=== PATIENT | female | born 1990 | race Caucasian/White ===

== ENCOUNTER 2017-02-09 18:24 | Emergency (ER) | payer SELFPAY ==
[~2017-02-09] VITALS: Ht 167.6 cm; Wt 56.7 kg
[~2017-02-09 18:24] MED LIST: AGM875T PO; CEPH500C PO; CODE-54 PO; FAMO-119 PO; IBP600T1 PO; NAPR500T PO; PHEN-639 PO; PRD20T PO; PREN1TAB25 PO
--- NOTE | 2017-02-09 18:39 | ED GU-Female ---
General Stated Complaint: PELVIC AREA ISSUES Source: patient Exam Limitations: no limitations History of Present Illness Time seen by provider: 18:37 Initial Comments To ER with reports of a three-day history of yellowish vaginal discharge, vaginal itching and burning as well as burning with urination. She has not been sexually active for 4 months Timing/Duration: other Severity/Quality: moderate Activities at Onset: none Associated Symptoms: denies symptoms Allergies and Home Medications Allergies Coded Allergies: No Known Drug Allergies (Unverified , 04/04/11) Constitutional: see HPI EENTM: see HPI Respiratory: no symptoms reported Cardiovascular: no symptoms reported Genitourinary: no symptoms reported Musculoskeletal: no symptoms reported Skin: no symptoms reported Psychiatric/Neurological: No Symptoms Reported Endocrine: No Symptoms Reported Past Dhhfdzj-Dkkwoh-Ouoogg Hx Patient Social History Alcohol Beverage of Choice: Beer Type Used: Cigarettes Recent Foreign Travel: No Contact w/Someone Who Travel: No Recent Hopitalizations: No Immunizations Up To Date Tetanus Booster (TDap): Unknown PED Vaccines UTD: No Seasonal Allergies Seasonal Allergies: No Reproductive System Hx Reproductive Disorders: No Blood Transfusions Adverse Reaction to a Blood Tr: No Family Medical History Significant Family History: No Pertinent Family Hx Family Medial History: Cardiovascular disease 19 MOTHER, Onset:39 (HEART ATTACK ) MAT GRANDPA, Onset:50's - 60 (HEART ATTACK) Dementia MAT GRANDMA, Onset:50's - 60 Diabetes mellitus MAT GRANDPA MAT GRANDMA Hypertension 19 FATHER, Onset:Unknown 19 MOTHER, Onset:Unknown Thyroid disease MAT GRANDMA, Onset:Unknown No Family History of: AIDS Abdominal aortic aneurysm Real's disease Alcoholism Alzheimer's disease Aphasia Arthritis Asthma Cancer of mouth Cataracts Colon cancer Completed stroke Congenital disease Congenital heart disease Coronary thrombosis Cystic fibrosis Deafness or hearing loss Drug abuse Dysphasia Fibrocystic disease of breast Gastroenteritis Glaucoma Headache disorder Hypercholesterolemia Kidney disease Myocardial infarction Neoplasm Osteoporosis Parkinson's disease Prostate cancer Psychosocial problem Respiratory disorder Seizure disorder Severe allergy Tuberculosis Visual disorder Physical Exam Vital Signs Vital Sign - Last 12Hours 02/09/17 18:30 Temp 97.7 Pulse 105 Resp 18 B/P (MAP) 126/78 Pulse Ox 98 Capillary Refill : General Appearance: WD/WN, no apparent distress HEENT: PERRL/EOMI, normal ENT inspection Neck: non-tender, full range of motion Cardiovascular: regular rate, rhythm, no murmur Respiratory: no respiratory distress, no accessory muscle use Gastrointestinal: normal bowel sounds, non tender, soft Pelvic: other (there is some cervical friability with cervical discharge of whitish yellow material. Nontender to cervical motion.) Extremities: normal range of motion, non-tender Neurologic/Psychiatric: alert, normal mood/affect, oriented x 3 Skin: normal color, warm/dry Progress/Results/Core Measures Results/Orders Lab Results Laboratory Tests Test 02/09/17 18:35 02/09/17 18:50 Range/Units Urine Color YELLOW Urine Clarity SLIGHTLY CLOUDY Urine pH 5 5-9 Urine Specific [place] 1.025 H 1.016-1.022 Urine Protein NEGATIVE NEGATIVE Urine Glucose (UA) NEGATIVE NEGATIVE Urine Ketones 1+ H NEGATIVE Urine Nitrite NEGATIVE NEGATIVE Urine Bilirubin NEGATIVE NEGATIVE Urine Urobilinogen 1 NORMAL MG/DL Urine Leukocyte Esterase 3+ H NEGATIVE Urine RBC (Auto) NEGATIVE NEGATIVE Urine RBC NONE /HPF Urine WBC 5-10 H /HPF Urine Squamous Epithelial Cells 10-25 H /HPF Urine Crystals NONE /LPF Urine Bacteria NEGATIVE /HPF Urine Casts NONE /LPF Urine Mucus NEGATIVE /LPF Urine Culture Indicated YES Urine Test NEGATIVE NEGATIVE My Orders Orders - VICENTE COREA NURSING ATTENDANT Wet Prep (02/09/17 18:35) Ua Culture If Indicated (02/09/17 18:35) Neisseria Gonorrhea Dna (02/09/17 18:35) Chlam Dna Probe (02/09/17 18:35) Urine Bedside (02/09/17 18:35) Urine Culture (02/09/17 18:35) Hcg,Qualitative Urine (02/09/17 18:59) Vital Signs/I&O Vital Sign - Last 12Hours 02/09/17 18:30 Temp 97.7 Pulse 105 Resp 18 B/P (MAP) 126/78 Pulse Ox 98 Departure Impression Impression: Primary Impression: Vaginal discharge Additional Impression: Urinary tract infection Disposition: 01 HOME, SELF-CARE Condition: Stable Departure-Patient Inst. Decision time for Depature: 19:16 Referrals: NO,LOCAL PHYSICIAN (PCP/Family) Primary Care Physician Patient Instructions: Urinary Tract Infection, Adult (DC) Add. Discharge Instructions: 1. Follow-up with your doctor next week 2. Return to ER for any concerns 3. We will call you if your culture results indicate need for additional antibiotic. The STD testing will return at the end of next week Scripts Cephalexin (Keflex) 500 Mg Capsule 500 MG PO TID, #15 CAP Prov: VICENTE COREA APRN 02/09/17 VICENTE COREA APRN Feb 09, 2017 18:38
[2017-02-09 18:45] LABS: BILIRUBIN,URINE NEGATIVE (NEGATIVE); KETONES,URINE 1+ (NEGATIVE); LEUKOCYTE ESTERASE ,URINE 3+ (NEGATIVE); NITRITE,URINE NEGATIVE (NEGATIVE); PH,URINE 5 (5-9); PROTEIN,URINE NEGATIVE (NEGATIVE); UROBILINOGEN,URINE 1 MG/DL (NORMAL)
[2017-02-09] MEDS ORDERED: CEPH-507 PO (19:17)
[2017-02-09] MEDS: AZITHROMYCIN 250 MG TAB (ZITHROMAX) PO SCH (19:29)
[2017-02-09] MEDS: LIDOCAINE 1% INJ 20 ML (XYLOCAINE) VIAL INJ ONE (19:30)
[2017-02-09] MEDS: cefTRIAXone 1 GM (ROCEPHIN) VIAL IM ONE (19:30)
[2017-02-09 19:43] VITALS: BP 126/78
[2017-02-11 15:35] LABS: CHLAMYDIA DNA PROBE PT Not Detected (Not Detected); NEISSERIA GONORRHEA DNA Not Detected (Not Detected)
== END 2017-02-09 19:43 | disposition home or self-care (01) ==
LOC: EDUNIT# 18:24 → ER 18:26
DX: N89.8 Other specified noninflammatory disorders of vagina (principal); N39.0 Urinary tract infection, site not specified; Z82.49 Family history of ischemic heart disease and other diseases of the circulatory system
CPT/HCPCS: 36415; 81000; 84703; 87088; 87210; 87491; 87591; 99284

== ENCOUNTER 2017-02-18 09:04 | Emergency (ER) | payer SELFPAY ==
[~2017-02-18] VITALS: Ht 167.6 cm; Wt 56.7 kg
[~2017-02-18 09:04] MED LIST changes: +CEPH-507 PO
[2017-02-18] MEDS ORDERED: SERT100T PO (09:53)
[2017-02-18 09:54] LABS: BASOPHILS % (AUTO) 1 % (0-10); EOSINOPHILS # (AUTO) 0.1 10^3/uL (0.0-0.3); EOSINOPHILS % (AUTO) 1 % (0-10); LYMPHOCYTES # (AUTO) 1.6 X 10^3 (1.0-4.0); LYMPHOCYTES % (AUTO) 24 % (12-44); MEAN CORPUSCULAR HEMOGLOBIN 32 PG (25-34); MEAN CORPUSCULAR HGB CONC 34 G/DL (32-36); MEAN CORPUSCULAR VOLUME 94 FL (80-99); MEAN PLATELET VOLUME 10.9 FL (7.4-10.4); MONOCYTES # (AUTO) 0.4 X 10^3 (0.0-1.0); MONOCYTES % (AUTO) 6 % (0-12); NEUTROPHILS # (AUTO) 4.6 X 10^3 (1.8-7.8); NEUTROPHILS % (AUTO) 68 % (42-75); PLATELET COUNT 168 10^3/uL (130-400); WHITE BLOOD COUNT 6.8 10^3/uL (4.3-11.0)
[2017-02-18 09:55] LABS: BILIRUBIN,URINE NEGATIVE (NEGATIVE); KETONES,URINE NEGATIVE (NEGATIVE); LEUKOCYTE ESTERASE ,URINE NEGATIVE (NEGATIVE); NITRITE,URINE NEGATIVE (NEGATIVE); PH,URINE 5 (5-9); PROTEIN,URINE NEGATIVE (NEGATIVE); UROBILINOGEN,URINE NORMAL (NORMAL)
[2017-02-18 10:09] LABS: ALANINE AMINOTRANSFERASE 11 U/L (0-55); ANION GAP 13 MMOL/L (5-14); ASPARTATE AMINO TRANSFERASE 16 U/L (5-34); BILIRUBIN,TOTAL 0.4 MG/DL (0.1-1.0); BLOOD UREA NITROGEN 10 MG/DL (7-18); BUN/CREATININE RATIO 15; CALCIUM 9.1 MG/DL (8.5-10.1); CARBON DIOXIDE 22 MMOL/L (21-32); CHLORIDE 107 MMOL/L (98-107); CREATININE SERUM 0.65 MG/DL (0.60-1.30); GFR ESTIMATED > 60; LIPASE 19 U/L (8-78); POTASSIUM 3.7 MMOL/L (3.6-5.0); SODIUM 142 MMOL/L (135-145); TOTAL PROTEIN 6.5 GM/DL (6.4-8.2)
[2017-02-18 10:11] LABS: GLUCOSE 58 MG/DL (70-105)
--- NOTE | 2017-02-18 10:34 | Diagnostic Imaging Report ---
INDICATION: Pain. FINDINGS: Lungs are clear. The heart and vessels normal. There is no effusion or pneumothorax. IMPRESSION: Negative. Dictated by: Dictated on workstation # [id number]
[2017-02-18] MEDS ORDERED: RX-ALBUTEROL NEB 2.5 MG/3 ML PACK #5 IH STA (10:43)
[2017-02-18] MEDS ORDERED: DEXAMETHASONE PF 10 MG/ML (DECADRON) VIAL IV STA (10:43)
[2017-02-18] MEDS ORDERED: DEXAMETHASONE 10 MG/ML (DECADRON) 1 ML VIAL ONE (10:44)
[2017-02-18] MEDS ORDERED: RX-ALBUTEROL INHALER (PROAIR) 8 GM IH STA (10:50)
--- NOTE | 2017-02-18 10:50 | ED General ---
General Chief Complaint: Abdominal/GI Problems Stated Complaint: ABD PAIN,BACK PAIN Nursing Triage Note: pt reports cough cold recently that she has been taking muccinex for. pt states that she has upper abdominal pain that radiates to her back and bilateral upper sides. Nursing Sepsis Screen: No Definite Risk Source of Information: Patient Exam Limitations: No Limitations History of Present Illness Time Seen by Provider: 10:35 Initial Comments Here with report of mid back pain as well as some upper abdominal pain and upper respiratory congestion with mild cough that has been going on over the last 4-5 days but worse this morning. Noted that overnight she was having the discomfort in her back and abdomen. That has subsequently resolved. She went to work today and ultimately left due to not feeling well. Presents here for further evaluation. Denies fever or chills. Denies nausea, vomiting or diarrhea. Denies dysuria. Timing/Duration: 4-5 Days Severity: Moderate Associated Systoms: Cough, No Fever/Chills, No Nausea/Vomiting, Shortness of Air, No Weakness Allergies and Home Medications Allergies Coded Allergies: No Known Drug Allergies (Unverified , 04/04/11) Home Medications Sertraline HCl 100 Mg Tablet, 100 MG PO DAILY, (Reported) Constitutional: see HPI Respiratory: see HPI, cough, short of breath Cardiovascular: no symptoms reported Gastrointestinal: see HPI, abdominal pain, No diarrhea, No nausea, No vomiting Genitourinary: no symptoms reported Musculoskeletal: see HPI, back pain, No joint pain, muscle pain Skin: no symptoms reported All Other Systems Reviewed Negative Unless Noted: Yes Past Tkmapnp-Riugbd-Eukyfc Hx Patient Social History Alcohol Use: Denies Use Number of Drinks Today: AA Alcohol Beverage of Choice: Beer Recreational Drug Use: No Smoking Status: Current Everyday Smoker Type Used: Cigarettes Recent Foreign Travel: No Contact w/Someone Who Travel: No Recent Infectious Disease Expo: No Recent Hopitalizations: No Physical Abuse: No Sexual Abuse: No Mistreated: No Fear: No Immunizations Up To Date Tetanus Booster (TDap): Unknown PED Vaccines UTD: No Seasonal Allergies Seasonal Allergies: No Surgeries History of Surgeries: No Respiratory History of Respiratory Disorde: No Cardiovascular History of Cardiac Disorders: No Neurological History of Neurological Disord: No Reproductive System Hx Reproductive Disorders: No Genitourinary History of Genitourinary Disor: No Gastrointestinal History of Gastrointestinal Di: No Musculoskeletal History of Musculoskeletal Dis: No Endocrine History of Endocrine Disorders: No HEENT History of HEENT Disorders: No Cancer History of Cancer: No Psychosocial History of Psychiatric Problem: Yes Behavioral Health Disorders: Depression Suicide Risk Score: 0 Integumentary History of Skin or Integumenta: No Blood Transfusions History of Blood Disorders: No Adverse Reaction to a Blood Tr: No Reviewed Nursing Assessment Reviewed/Agree w Nursing PMH: Yes Family Medical History Significant Family History: No Pertinent Family Hx Family Medial History: Cardiovascular disease 19 MOTHER, Onset:39 (HEART ATTACK ) MAT GRANDPA, Onset:50's - 60 (HEART ATTACK) Dementia MAT GRANDMA, Onset:50's - 60 Diabetes mellitus MAT GRANDPA MAT GRANDMA Hypertension 19 FATHER, Onset:Unknown 19 MOTHER, Onset:Unknown Thyroid disease MAT GRANDMA, Onset:Unknown Physical Exam Vital Signs Vital Sign - Last 12Hours 02/18/17 09:42 Temp 97.7 Pulse 94 Resp 18 B/P (MAP) 118/80 Pulse Ox 94 Capillary Refill : Less Than 3 Seconds General Appearance: No Apparent Distress, WD/WN HEENT: PERRL/EOMI, Pharynx Normal Neck: Non Tender, Supple Respiratory: Lungs Clear, Normal Breath Sounds Cardiovascular: Regular Rate, Rhythm, No Murmur Gastrointestinal: Normal Bowel Sounds, No Organomegaly, No Pulsatile Mass, Non Tender, Soft Extremity: Non Tender, No Calf Tenderness Neurologic/Psychiatric: Alert, Oriented x3 Skin: Normal Color, Warm/Dry Progress/Results/Core Measures Results/Orders Lab Results Laboratory Tests Test 02/18/17 08:27 02/18/17 09:38 02/18/17 10:16 Range/Units Urine Color YELLOW Urine Clarity CLEAR Urine pH 5 5-9 Urine Specific [place] 1.005 L 1.016-1.022 Urine Protein NEGATIVE NEGATIVE Urine Glucose (UA) NEGATIVE NEGATIVE Urine Ketones NEGATIVE NEGATIVE Urine Nitrite NEGATIVE NEGATIVE Urine Bilirubin NEGATIVE NEGATIVE Urine Urobilinogen NORMAL NORMAL MG/DL Urine Leukocyte Esterase NEGATIVE NEGATIVE Urine RBC (Auto) NEGATIVE NEGATIVE Urine RBC NONE /HPF Urine WBC NONE /HPF Urine Squamous Epithelial Cells 2-5 /HPF Urine Crystals NONE /LPF Urine Bacteria NEGATIVE /HPF Urine Casts NONE /LPF Urine Mucus NEGATIVE /LPF Urine Culture Indicated NO White Blood Count 6.8 4.3-11.0 10^3/uL Red Blood Count 4.20 L 4.35-5.85 10^6/uL Hemoglobin 13.5 11.5-16.0 G/DL Hematocrit 39 35-52 % Mean Corpuscular Volume 94 80-99 FL Mean Corpuscular Hemoglobin 32 25-34 PG Mean Corpuscular Hemoglobin Concent 34 32-36 G/DL Red Cell Distribution Width 13.0 10.0-14.5 % Platelet Count 168 130-400 10^3/uL Mean Platelet Volume 10.9 H 7.4-10.4 FL Neutrophils (%) (Auto) 68 42-75 % Lymphocytes (%) (Auto) 24 12-44 % Monocytes (%) (Auto) 6 0-12 % Eosinophils (%) (Auto) 1 0-10 % Basophils (%) (Auto) 1 0-10 % Neutrophils # (Auto) 4.6 1.8-7.8 X 10^3 Lymphocytes # (Auto) 1.6 1.0-4.0 X 10^3 Monocytes # (Auto) 0.4 0.0-1.0 X 10^3 Eosinophils # (Auto) 0.1 0.0-0.3 10^3/uL Basophils # (Auto) 0.0 0.0-0.1 10^3/uL Sodium Level 142 135-145 MMOL/L Potassium Level 3.7 3.6-5.0 MMOL/L Chloride Level 107 98-107 MMOL/L Carbon Dioxide Level 22 21-32 MMOL/L Anion Gap 13 5-14 MMOL/L Blood Urea Nitrogen 10 7-18 MG/DL Creatinine 0.65 0.60-1.30 MG/DL Estimat Glomerular Filtration Rate > 60 BUN/Creatinine Ratio 15 Glucose Level 58 *L 70-105 MG/DL Calcium Level 9.1 8.5-10.1 MG/DL Total Bilirubin 0.4 0.1-1.0 MG/DL Aspartate Amino Transf (AST/SGOT) 16 5-34 U/L Alanine Aminotransferase (ALT/SGPT) 11 0-55 U/L Alkaline Phosphatase 85 40-136 U/L Total Protein 6.5 6.4-8.2 GM/DL Albumin 4.0 3.2-4.5 GM/DL Lipase 19 8-78 U/L Glucometer 88 70-110 MG/DL My Orders Orders - ALBERT GONZALEZ MD Ua Culture If Indicated (02/18/17 09:46) Urine Bedside (02/18/17 09:46) Chest Pa/Lat (2 View) (02/18/17 09:46) Cbc With Automated Diff (02/18/17 09:46) Comprehensive Metabolic Panel (02/18/17 09:46) Lipase (02/18/17 09:46) Dexamethasone Pf Injection (Decadron Pf (02/18/17 10:43) Rx-Albuterol Nebs (Rx-Proventil Nebs) (02/18/17 10:43) Rx-Albuterol Inhaler (Rx-Proair) (02/18/17 10:50) Vital Signs/I&O Vital Sign - Last 12Hours 02/18/17 09:42 Temp 97.7 Pulse 94 Resp 18 B/P (MAP) 118/80 Pulse Ox 94 Blood Pressure Mean: 93 Point of Care Testing Finger Stick Blood Glucose: 88 Urine -Bedside: Negative Progress Note : Progress Note Seen and evaluated. IV, labs, UA, UCG and chest x-ray ordered. No acute findings. Symptoms consistent with bronchitis. Decadron 10 mg IV and albuterol MDI given. Discharged home with return precautions. Patient verbalize understanding of instructions and agreement with plan. Diagnostic Imaging Diagonstic Imaging: Xray Plain Films/CT/US/NM/MRI: chest Comments NAME: KRISTAN RASHEED [facility] REC#: [id number] PT STATUS: REG ER : 1990 PHYSICIAN: ALBERT GONZALEZ MD ADMIT DATE: 02/18/17/ER Signed Date of Exam: 02/18/17 CHEST PA/LAT (2 VIEW) INDICATION: Pain. FINDINGS: Lungs are clear. The heart and vessels normal. There is no effusion or pneumothorax. IMPRESSION: Negative. Dictated by: Dictated on workstation # [id number] Dict: 02/18/17 1028 Trans: 02/18/17 1043 Interpreted by: DENG HANNAH Electronically signed by: DENG HANNAH 02/18/17 1043 Departure Impression Impression: Primary Impression: Bronchitis Disposition: 01 HOME, SELF-CARE Condition: Improved Departure-Patient Inst. Decision time for Depature: 10:55 Referrals: NO,LOCAL PHYSICIAN (PCP/Family) Primary Care Physician Patient Instructions: Acute Bronchitis, Adult (DC) Add. Discharge Instructions: All discharge instructions reviewed with patient and/or family. Voiced understanding. Use albuterol inhaler 2 puffs every 4 hours as needed for difficulty breathing. You may take ibuprofen 600 mg every 8 hours as needed for pain. You may take Tylenol 1000 mg every 8 hours as needed for pain. Follow-up with your Dr. in a few days for recheck. Return for worse pain, fever, vomiting, weakness, breathing problems or other concerns as needed. ALBERT GONZALEZ MD Feb 18, 2017 10:50
[2017-02-18 11:04] VITALS: BP 112/78
== END 2017-02-18 11:04 | disposition home or self-care (01) ==
LOC: EDUNIT# 09:04 → ER 09:06
DX: J40 Bronchitis, not specified as acute or chronic (principal); F32.9 Major depressive disorder, single episode, unspecified; F17.210 Nicotine dependence, cigarettes, uncomplicated; Z82.49 Family history of ischemic heart disease and other diseases of the circulatory system
CPT/HCPCS: 36415; 71020; 80053; 81000; 82962; 83690; 84703; 85025; 96374

== ENCOUNTER 2017-08-22 09:30 | Emergency (ER) | payer MEDICAID, OTHER ==
[~2017-08-22] VITALS: Ht 165.1 cm; Wt 49.9 kg
[~2017-08-22 09:30] MED LIST changes: +NAPR-1071 PO; -NAPR500T PO; +SERT100T PO
--- OUTSIDE RECORDS SUMMARY | 2017-08-22 09:37 | XMS REPORT ---
Author Author JOANA GIPSON [facility] Address [address] [place] [address] Care Team Providers Care Breakdown Man Name Role Phone JOANA GIPSON Unavailable PROBLEMS Unknown Problems ALLERGIES No Information SOCIAL HISTORY Never Assessed PLAN OF CARE VITAL SIGNS MEDICATIONS No Known Medications RESULTS No Results PROCEDURES No Known procedures IMMUNIZATIONS No Known Immunizations MEDICAL (GENERAL) HISTORY Type Description Date Medical History anxiety
--- OUTSIDE RECORDS SUMMARY | 2017-08-22 09:38 | XMS REPORT | Continuity of Care Document ---
Author Author [facility] Organization [facility] Address Unknown Phone Unavailable Allergies Active Description Code Type Severity Reaction Onset Reported/Identified Relationship to Patient Clinical Status Yes No Known Drug Allergies [id number] Drug Allergy Unknown N/A 04/04/2011 Medications There is no data. Problems Date Dx Coded Attending Type Code Diagnosis Diagnosed By 01/22/2011 Ot 646.83 PREG COMPL NEC-ANTEPART 01/22/2011 Ot 789.00 ABDOMINAL PAIN, UNSPECIFIED SITE 01/27/2011 Ot 655.73 DECR MOVEMNT ANTEPARTUM CONDITION 04/06/2011 Ot 650 NORMAL DELIVERY 04/06/2011 Ot V27.0 DELIVER- SINGLE LIVEBORN 12/12/2013 VICENTE COREA [employer] REP Ot 521.00 UNSPEC DENTAL CARIES 07/05/2014 Ot 649.63 07/05/2014 Ot 649.63 07/05/2014 DAYANARA VILLAGOMEZ MD Ot V28.81 07/05/2014 DAYANARA VILLAGOMEZ MD Ot V28.81 07/08/2014 DAYANARA VILLAGOMEZ MD Ot 664.81 OB PERINEAL TRAU NEC-DEL 07/08/2014 DAYANARA VILLAGOMEZ MD Ot V27.0 DELIVER-SINGLE LIVEBORN 10/22/2014 Ot 649.63 10/22/2014 Ot 649.63 10/22/2014 DAYANARA VILLAGOMEZ MD Ot V28.81 10/22/2014 DAYANARA VILLAGOMEZ MD, Ot V28.81 02/07/2016 Ot 649.63 UTERINE SIZE DATE DISCREPANCY, ANTEPARTU 02/07/2016 Ot 649.63 UTERINE SIZE DATE DISCREPANCY, ANTEPARTU 02/07/2016 DAYANARA VILLAGOMEZ MD Ot V28.81 ENCOUNTER FOR ANATOMIC SURVEY 02/07/2016 DAYANARA VILLAGOMEZ MD Ot V28.81 ENCOUNTER FOR ANATOMIC SURVEY 02/07/2016 YOGESH PA, ANGEL L Ot F15.10 OTHER STIMULANT ABUSE, UNCOMPLICATED 02/07/2016 DENNIS AGUEROEN L Ot F17.210 NICOTINE DEPENDENCE, CIGARETTES, UNCOMPL 02/07/2016 DENNIS AGUEROEN L Ot N39.0 URINARY TRACT INFECTION, SITE NOT SPECIF 02/07/2016 DENNIS AGUEROEN L Ot R07.89 OTHER CHEST PAIN 02/07/2016 DENNIS AGUEROEN L Ot S23.41XA SPRAIN OF RIBS, INITIAL ENCOUNTER 02/07/2016 ANGEL AGUERO L Ot X39.8XXA OTHER EXPOSURE TO FORCES OF NATURE, INIT 02/07/2016 ANGEL AGUERO L Ot Y99.8 OTHER EXTERNAL CAUSE STATUS 02/08/2016 ANGEL AGUERO L Ot F15.10 OTHER STIMULANT ABUSE, UNCOMPLICATED 02/08/2016 ANGEL AGUERO L Ot F17.210 NICOTINE DEPENDENCE, CIGARETTES, UNCOMPL 02/08/2016 DENNIS AGUEROEN L Ot N39.0 URINARY TRACT INFECTION, SITE NOT SPECIF 02/08/2016 ANGEL AGUERO L Ot R07.89 OTHER CHEST PAIN 02/08/2016 DENNIS AGUEROEN L Ot S23.41XA SPRAIN OF RIBS, INITIAL ENCOUNTER 02/08/2016 ANGEL AGUERO L Ot X39.8XXA OTHER EXPOSURE TO FORCES OF NATURE, INIT 02/08/2016 DENNIS AGUEROEN L Ot Y99.8 OTHER EXTERNAL CAUSE STATUS 02/08/2016 ANGEL AGUERO L Ot F15.10 OTHER STIMULANT ABUSE, UNCOMPLICATED 02/08/2016 ANGEL AGUERO L Ot F17.210 NICOTINE DEPENDENCE, CIGARETTES, UNCOMPL 02/08/2016 DENNIS AGUEROEN L Ot N39.0 URINARY TRACT INFECTION, SITE NOT SPECIF 02/08/2016 DENNIS AGUEROEN L Ot R07.89 OTHER CHEST PAIN 02/08/2016 DENNIS AGUEROEN L Ot S23.41XA SPRAIN OF RIBS, INITIAL ENCOUNTER 02/08/2016 DENNIS AGUEROEN L Ot X39.8XXA OTHER EXPOSURE TO FORCES OF NATURE, INIT 02/08/2016 DENNIS AGUEROEN L Ot Y99.8 OTHER EXTERNAL CAUSE STATUS 02/15/2016 ANGEL AGUERO L Ot F15.10 OTHER STIMULANT ABUSE, UNCOMPLICATED 02/15/2016 ANGEL AGUERO Ot F17.210 NICOTINE DEPENDENCE, CIGARETTES, UNCOMPL 02/15/2016 ANGEL AGUERO Ot N39.0 URINARY TRACT INFECTION, SITE NOT SPECIF 02/15/2016 ANGEL AGUERO Ot R07.89 OTHER CHEST PAIN 02/15/2016 ANGEL AGUERO Ot S23.41XA SPRAIN OF RIBS, INITIAL ENCOUNTER 02/15/2016 ANGEL AGUERO Ot X39.8XXA OTHER EXPOSURE TO FORCES OF NATURE, INIT 02/15/2016 ANGEL AGUERO Ot Y99.8 OTHER EXTERNAL CAUSE STATUS 04/04/2016 ANGEL AGUERO Ot F17.210 NICOTINE DEPENDENCE, CIGARETTES, UNCOMPL 04/04/2016 ANGEL AGUERO Ot K14.8 OTHER DISEASES OF TONGUE 04/04/2016 ANGEL AGUERO Ot T78.3XXA ANGIONEUROTIC EDEMA, INITIAL ENCOUNTER 04/05/2016 ANGEL AGUERO Ot F17.210 NICOTINE DEPENDENCE, CIGARETTES, UNCOMPL 04/05/2016 ANGEL AGUERO Ot K14.8 OTHER DISEASES OF TONGUE 04/05/2016 ANGEL AGUERO Ot T78.3XXA ANGIONEUROTIC EDEMA, INITIAL ENCOUNTER 02/09/2017 DAYANARA VILLAGOMEZ MD Ot V28.81 ENCOUNTER FOR ANATOMIC SURVEY 02/09/2017 DAYANARA VILLAGOMEZ MD, Ot V28.81 ENCOUNTER FOR ANATOMIC SURVEY 02/09/2017 VICENTE COREA APRN Ot N39.0 URINARY TRACT INFECTION, SITE NOT SPECIF 02/09/2017 VICENTE COREA APRN Ot N89.8 OTHER SPECIFIED NONINFLAMMATORY DISORDER 02/09/2017 VICENTE COREA APRN Ot Z82.49 FAMILY HX OF ISCHEM HEART DIS AND OTH DI 02/09/2017 DAYANARA VILLAGOMEZ MD, Ot V28.81 ENCOUNTER FOR ANATOMIC SURVEY 02/09/2017 DAYANARA VILLAGOMEZ MD, Ot V28.81 ENCOUNTER FOR ANATOMIC SURVEY 02/18/2017 DAYANARA VILLAGOMEZ MD, Ot V28.81 ENCOUNTER FOR ANATOMIC SURVEY 02/18/2017 DAYANARA VILLAGOMEZ MD, Ot V28.81 ENCOUNTER FOR ANATOMIC SURVEY 02/18/2017 ALBERT GONZALEZ MD Ot F17.210 NICOTINE DEPENDENCE, CIGARETTES, UNCOMPL 02/18/2017 ALBERT GONZALEZ MD Ot F32.9 MAJOR DEPRESSIVE DISORDER, SINGLE EPISOD 02/18/2017 ALBERT GONZALEZ MD, Ot J40 BRONCHITIS, NOT SPECIFIED ACUTE OR CH 02/18/2017 ALBERT GONZALEZ MD, Ot M54.6 PAIN IN THORACIC SPINE 02/18/2017 ALBERT GONZALEZ MD, Ot Z82.49 FAMILY HX OF ISCHEM HEART DIS AND OTH DI 05/16/2017 DAYANARA VILLAGOMEZ MD, Ot V28.81 ENCOUNTER FOR ANATOMIC SURVEY 05/16/2017 DAYANARA VILLAGOMEZ MD, Ot V28.81 ENCOUNTER FOR ANATOMIC SURVEY 05/30/2017 DAYANARA VILLAGOMEZ MD, Ot V28.81 ENCOUNTER FOR ANATOMIC SURVEY 05/30/2017 DAYANARA VILLAGOMEZ MD, Ot V28.81 ENCOUNTER FOR ANATOMIC SURVEY Procedures Code Description Performed By Performed On 96.49 04/04/2011 73.6 04/05/2011 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 75.69 REPAIR OB LACERATION NEC 07/06/2014 Results Test Result Range Complete blood count (CBC) with automated white blood cell (WBC) differential - 02/07/16 18:57 Blood leukocytes automated count (number/volume) 9.1 10*3/uL 4.3-11.0 Blood erythrocytes automated count (number/volume) 5.05 10*6/uL 4.35-5.85 Venous blood hemoglobin measurement (mass/volume) 16.3 g/dL 11.5-16.0 Blood hematocrit (volume fraction) 46 % 35-52 Automated erythrocyte mean corpuscular volume 91 [foz_us] 80-99 Automated erythrocyte mean corpuscular hemoglobin (mass per erythrocyte) 32 pg 25-34 Automated erythrocyte mean corpuscular hemoglobin concentration measurement ( mass/volume) 35 g/dL 32-36 Automated erythrocyte distribution width ratio 12.9 % 10.0-14.5 Automated blood platelet count (count/volume) 281 10*3/uL 130-400 Automated blood platelet mean volume measurement 9.6 [foz_us] 7.4-10.4 Automated blood neutrophils/100 leukocytes 55 % 42-75 Automated blood lymphocytes/100 leukocytes 34 % 12-44 Blood monocytes/100 leukocytes 9 % 0-12 Automated blood eosinophils/100 leukocytes 1 % 0-10 Automated blood basophils/100 leukocytes 1 % 0-10 Blood neutrophils automated count (number/volume) 5.0 10*3 1.8-7.8 Blood lymphocytes automated count (number/volume) 3.1 10*3 1.0-4.0 Blood monocytes automated count (number/volume) 0.8 10*3 0.0-1.0 Automated eosinophil count 0.1 10*3/uL 0.0-0.3 Automated blood basophil count (count/volume) 0.1 10*3/uL 0.0-0.1 Comprehensive metabolic panel - 02/07/16 18:57 Serum or plasma sodium measurement (moles/volume) 137 mmol/L 135-145 Serum or plasma potassium measurement (moles/volume) 3.8 mmol/L 3.6-5.0 Serum or plasma chloride measurement (moles/volume) 101 mmol/L 98-107 Carbon dioxide 25 mmol/L 21-32 Serum or plasma anion gap determination (moles/volume) 11 mmol/L 5-14 Serum or plasma urea nitrogen measurement (mass/volume) 21 mg/dL 7-18 Serum or plasma creatinine measurement (mass/volume) 0.82 mg/dL 0.60-1.30 Serum or plasma urea nitrogen/creatinine mass ratio 26 NRG Serum or plasma creatinine measurement with calculation of estimated glomerular filtration rate > NRG Serum or plasma glucose measurement (mass/volume) 80 mg/dL 70-105 Serum or plasma calcium measurement (mass/volume) 9.8 mg/dL 8.5-10.1 Serum or plasma total bilirubin measurement (mass/volume) 0.4 mg/dL 0.1-1.0 Serum or plasma alkaline phosphatase measurement (enzymatic activity/volume) 89 U/L 40-136 Serum or plasma aspartate aminotransferase measurement (enzymatic activity/ volume) 21 U/L 5-34 Serum or plasma alanine aminotransferase measurement (enzymatic activity/volume ) 26 U/L 0-55 Serum or plasma protein measurement (mass/volume) 7.1 g/dL 6.4-8.2 Serum or plasma albumin measurement (mass/volume) 4.5 g/dL 3.2-4.5 Serum or plasma ethanol measurement (mass/volume) - 02/07/16 18:57 Serum or plasma ethanol measurement (mass/volume) < mg/dL <10 Fibrin D-dimer FEU measurement in platelet poor plasma (mass/volume) - 18:57 Fibrin D-dimer FEU measurement in platelet poor plasma (mass/volume) 0.57 ug/mL 0.00-0.49 Urine drug screening test - 02/07/16 20:09 Urine acetaminophen detection by screening method POSITIVE NEGATIVE Urine phencyclidine detection by screening method NEGATIVE NEGATIVE Urine benzodiazepines detection by screening method NEGATIVE NEGATIVE Urine cocaine detection NEGATIVE NEGATIVE Urine amphetamines detection by screening method POSITIVE NEGATIVE Urine methamphetamine detection by screening method POSITIVE NEGATIVE Urine cannabinoids detection by screening method NEGATIVE NEGATIVE Urine opiates detection by screening method NEGATIVE NEGATIVE Urine barbiturates detection NEGATIVE NEGATIVE Screening urine tricyclic antidepressants detection NEGATIVE NEGATIVE Urine methadone detection by screening method NEGATIVE NEGATIVE Complete urinalysis with reflex to culture - 02/07/16 20:09 Urine color determination YELLOW NRG Urine clarity determination CLEAR NRG Urine pH measurement by test strip 6 5-9 Specific gravity of urine by test strip 1.015 1.016- 1.022 Urine protein assay by test strip, semi-quantitative NEGATIVE NEGATIVE Urine glucose detection by automated test strip NEGATIVE NEGATIVE Erythrocytes detection in urine sediment by light microscopy NEGATIVE NEGATIVE Urine ketones detection by automated test strip NEGATIVE NEGATIVE Urine nitrite detection by test strip NEGATIVE NEGATIVE Urine total bilirubin detection by test strip NEGATIVE NEGATIVE Urine urobilinogen measurement by automated test strip (mass/volume) NORMAL NORMAL Urine leukocyte esterase detection by dipstick 2+ NEGATIVE Automated urine sediment erythrocyte count by microscopy (number/high power field) NONE NRG Automated urine sediment leukocyte count by microscopy (number/high power field ) [HPF] NRG Bacteria detection in urine sediment by light microscopy FEW NRG Squamous epithelial cells detection in urine sediment by light microscopy 5-10 NRG Crystals detection in urine sediment by light microscopy NONE NRG Casts detection in urine sediment by light microscopy NONE NRG Mucus detection in urine sediment by light microscopy NEGATIVE NRG Complete urinalysis with reflex to culture YES NRG Bacterial urine culture - 02/07/16 20:09 URINE CULTURE RESULTS <10,000/ML NRG Complete urinalysis with reflex to culture - 02/09/17 18:35 Urine color determination YELLOW NRG Urine clarity determination SLIGHTLY CLOUDY NRG Urine pH measurement by test strip 5 5-9 Specific gravity of urine by test strip 1.025 1.016- 1.022 Urine protein assay by test strip, semi-quantitative NEGATIVE NEGATIVE Urine glucose detection by automated test strip NEGATIVE NEGATIVE Erythrocytes detection in urine sediment by light microscopy NEGATIVE NEGATIVE Urine ketones detection by automated test strip 1+ NEGATIVE Urine nitrite detection by test strip NEGATIVE NEGATIVE Urine total bilirubin detection by test strip NEGATIVE NEGATIVE Urine urobilinogen measurement by automated test strip (mass/volume) 1 mg/dL NORMAL Urine leukocyte esterase detection by dipstick 3+ NEGATIVE Automated urine sediment erythrocyte count by microscopy (number/high power field) NONE NRG Automated urine sediment leukocyte count by microscopy (number/high power field ) [HPF] NRG Bacteria detection in urine sediment by light microscopy NEGATIVE NRG Squamous epithelial cells detection in urine sediment by light microscopy 10-25 NRG Crystals detection in urine sediment by light microscopy NONE NRG Casts detection in urine sediment by light microscopy NONE NRG Mucus detection in urine sediment by light microscopy NEGATIVE NRG Complete urinalysis with reflex to culture YES NRG Urine beta human chorionic gonadotropin (hCG) measurement - 02/09/17 18:35 Urine beta human chorionic gonadotropin (hCG) measurement NEGATIVE NEGATIVE Bacterial urine culture - 02/09/17 18:35 Bacterial urine culture [id number] NRG COLONY COUNT >100,000/ML NRG Microscopic examination by wet preparation - 02/09/17 18:50 WET PREP RESULTS 02-10-17 NRG Chlamydia trachomatis DNA detection by probe and signal amplification method - 02/09/17 18:50 Chlamydia trachomatis DNA detection by probe and target amplification method Not Detected Not Detected Neisseria gonorrhoeae DNA detection by probe and signal amplification method - 02/09/17 18:50 Gonorrhea amp DNA-urine Not Detected Not Detected Complete urinalysis with reflex to culture - 02/18/17 08:27 Urine color determination YELLOW NRG Urine clarity determination CLEAR NRG Urine pH measurement by test strip 5 5-9 Specific gravity of urine by test strip 1.005 1.016- 1.022 Urine protein assay by test strip, semi-quantitative NEGATIVE NEGATIVE Urine glucose detection by automated test strip NEGATIVE NEGATIVE Erythrocytes detection in urine sediment by light microscopy NEGATIVE NEGATIVE Urine ketones detection by automated test strip NEGATIVE NEGATIVE Urine nitrite detection by test strip NEGATIVE NEGATIVE Urine total bilirubin detection by test strip NEGATIVE NEGATIVE Urine urobilinogen measurement by automated test strip (mass/volume) NORMAL NORMAL Urine leukocyte esterase detection by dipstick NEGATIVE NEGATIVE Automated urine sediment erythrocyte count by microscopy (number/high power field) NONE NRG Automated urine sediment leukocyte count by microscopy (number/high power field ) NONE NRG Bacteria detection in urine sediment by light microscopy NEGATIVE NRG Squamous epithelial cells detection in urine sediment by light microscopy 2-5 NRG Crystals detection in urine sediment by light microscopy NONE NRG Casts detection in urine sediment by light microscopy NONE NRG Mucus detection in urine sediment by light microscopy NEGATIVE NRG Complete urinalysis with reflex to culture NO NRG Complete blood count (CBC) with automated white blood cell (WBC) differential - 02/18/17 09:38 Blood leukocytes automated count (number/volume) 6.8 10*3/uL 4.3-11.0 Blood erythrocytes automated count (number/volume) 4.20 10*6/uL 4.35-5.85 Venous blood hemoglobin measurement (mass/volume) 13.5 g/dL 11.5-16.0 Blood hematocrit (volume fraction) 39 % 35-52 Automated erythrocyte mean corpuscular volume 94 [foz_us] 80-99 Automated erythrocyte mean corpuscular hemoglobin (mass per erythrocyte) 32 pg 25-34 Automated erythrocyte mean corpuscular hemoglobin concentration measurement ( mass/volume) 34 g/dL 32-36 Automated erythrocyte distribution width ratio 13.0 % 10.0-14.5 Automated blood platelet count (count/volume) 168 10*3/uL 130-400 Automated blood platelet mean volume measurement 10.9 [foz_us] 7.4-10.4 Automated blood neutrophils/100 leukocytes 68 % 42-75 Automated blood lymphocytes/100 leukocytes 24 % 12-44 Blood monocytes/100 leukocytes 6 % 0-12 Automated blood eosinophils/100 leukocytes 1 % 0-10 Automated blood basophils/100 leukocytes 1 % 0-10 Blood neutrophils automated count (number/volume) 4.6 10*3 1.8-7.8 Blood lymphocytes automated count (number/volume) 1.6 10*3 1.0-4.0 Blood monocytes automated count (number/volume) 0.4 10*3 0.0-1.0 Automated eosinophil count 0.1 10*3/uL 0.0-0.3 Automated blood basophil count (count/volume) 0.0 10*3/uL 0.0-0.1 Comprehensive metabolic panel - 02/18/17 09:38 Serum or plasma sodium measurement (moles/volume) 142 mmol/L 135-145 Serum or plasma potassium measurement (moles/volume) 3.7 mmol/L 3.6-5.0 Serum or plasma chloride measurement (moles/volume) 107 mmol/L 98-107 Carbon dioxide 22 mmol/L 21-32 Serum or plasma anion gap determination (moles/volume) 13 mmol/L 5-14 Serum or plasma urea nitrogen measurement (mass/volume) 10 mg/dL 7-18 Serum or plasma creatinine measurement (mass/volume) 0.65 mg/dL 0.60-1.30 Serum or plasma urea nitrogen/creatinine mass ratio 15 NRG Serum or plasma creatinine measurement with calculation of estimated glomerular filtration rate > NRG Serum or plasma glucose measurement (mass/volume) 58 mg/dL 70-105 Serum or plasma calcium measurement (mass/volume) 9.1 mg/dL 8.5-10.1 Serum or plasma total bilirubin measurement (mass/volume) 0.4 mg/dL 0.1-1.0 Serum or plasma alkaline phosphatase measurement (enzymatic activity/volume) 85 U/L 40-136 Serum or plasma aspartate aminotransferase measurement (enzymatic activity/ volume) 16 U/L 5-34 Serum or plasma alanine aminotransferase measurement (enzymatic activity/volume ) 11 U/L 0-55 Serum or plasma protein measurement (mass/volume) 6.5 g/dL 6.4-8.2 Serum or plasma albumin measurement (mass/volume) 4.0 g/dL 3.2-4.5 Lipase - 02/18/17 09:38 Lipase 19 U/L 8-78 Capillary blood glucose measurement by glucometer (mass/volume) - 02/18/17 10: 16 Capillary blood glucose measurement by glucometer (mass/volume) 88 mg/dL 70-110 Capillary blood glucose measurement by glucometer (mass/volume) - 02/18/17 10: 17 Capillary blood glucose measurement by glucometer (mass/volume) 72 mg/dL 70-110 Encounters ACCT No. Visit Date/Time Discharge Status Pt. Type Provider Facility Loc./Unit Complaint [id number] 02/18/2017 09:06:00 02/18/2017 11:04:00 DIS Emergency LISA COWART, ALBERT oHrne [facility] ER ABD PAIN,BACK PAIN [id number] 02/09/2017 18:26:00 02/09/2017 19:43:00 DIS Emergency VICENTE COREA APRN [facility] ER PELVIC AREA ISSUES [id number] 04/04/2016 18:41:00 04/04/2016 20:32:00 DIS Emergency ANGEL AGUERO [facility] ER TONGUE SWELLING; TROUBLE BREATHING [id number] 02/07/2016 17:50:00 02/07/2016 21:21:00 DIS Emergency ANGEL AGUERO [facility] ER R SIDE PAIN [id number] 07/06/2014 06:08:00 07/08/2014 11:05:00 DIS Inpatient DAYANARA VILLAGOMEZ MD [facility] LDRP INDUCTION [id number] 02/12/2014 13:30:00 02/12/2014 23:59:59 CLS Outpatient DAYANARA VILLAGOMEZ MD [facility] RAD SUVEY [id number] 01/06/2014 11:11:00 01/06/2014 23:59:59 CLS Outpatient DAYANARA VILLAGOMEZ MD [facility] RAD DATING [id number] 12/12/2013 14:15:00 12/12/2013 15:10:00 DIS Emergency VICENTE COREA APRN [facility] ER DENTAL PAIN [id number] 04/04/2011 19:20:00 Document Registration [id number] 01/27/2011 22:34:00 Document Registration [id number] 01/21/2011 23:53:00 Document Registration [id number] 11/28/2010 12:53:00 Document Registration [id number] 10/03/2010 15:00:00 Document Registration
[2017-08-22] MEDS ORDERED: AMOX-358 PO (10:45)
[2017-08-22] MEDS ORDERED: HYDR-757 PO (10:45)
[2017-08-22] MEDS ORDERED: HYDROcodone/APAP 5 MG/325 MG (LORTAB) TAB PO ONE (10:45)
--- NOTE | 2017-08-22 10:45 | ED Cough/URI ---
General Chief Complaint: Cough/Cold/Flu Symptoms Stated Complaint: COUGH/HURTS TO BREATH Nursing Triage Note: AMB TO ROOM C/O COUGH CONGESTION FOR SEVERAL DAYS. WOKE UP WITH L RIB PAIN TODAY Source: patient Exam Limitations: no limitations History of Present Illness Date Seen by Provider: Aug 22, 2017 Time Seen by Provider: 10:42 Initial Comments To ER with a cough and left lower chest pain. Chest pain is worse with deep breathing and she has to hold this area and splinted to take a deep breath. Chills but no fevers. Symptoms began 2 days ago. Timing/Duration: yesterday Severity/Quality: productive cough Associated Symptoms: cough, fever/chills Allergies and Home Medications Allergies Coded Allergies: No Known Drug Allergies (Unverified , 04/04/11) Home Medications Amoxicillin/Potassium Clav 1 Each Tablet, 1 EACH PO BID Prescribed by: VICENTE COREA on 08/22/17 1045 Hydrocodone/Acetaminophen 1 Each Tablet, 1 EACH PO Q4H PRN for PAIN-SEVERE Do not fill unless Augmentin is also filled Prescribed by: VICENTE COREA on 08/22/17 1045 Sertraline HCl 100 Mg Tablet, 100 MG PO DAILY, (Reported) Patient Home Medication List Home Medication List Reviewed: Yes Constitutional: see HPI EENTM: see HPI Respiratory: see HPI, cough Cardiovascular: no symptoms reported Genitourinary: no symptoms reported Musculoskeletal: no symptoms reported Skin: no symptoms reported Psychiatric/Neurological: No Symptoms Reported Past Gvjoahk-Cciifj-Llygxn Hx Patient Social History Alcohol Use: Occasionally Uses Number of Drinks Today: AA Alcohol Beverage of Choice: Beer Recreational Drug Use: No Smoking Status: Current Everyday Smoker Type Used: Cigarettes Recent Foreign Travel: No Contact w/Someone Who Travel: No Recent Infectious Disease Expo: No Recent Hopitalizations: No Immunizations Up To Date Tetanus Booster (TDap): Unknown PED Vaccines UTD: No Seasonal Allergies Seasonal Allergies: No Surgeries History of Surgeries: No Respiratory History of Respiratory Disorde: No Cardiovascular History of Cardiac Disorders: No Neurological History of Neurological Disord: No Reproductive System Hx Reproductive Disorders: No Genitourinary History of Genitourinary Disor: No Gastrointestinal History of Gastrointestinal Di: No Musculoskeletal History of Musculoskeletal Dis: No Endocrine History of Endocrine Disorders: No HEENT History of HEENT Disorders: No Cancer History of Cancer: No Psychosocial History of Psychiatric Problem: Yes Behavioral Health Disorders: Depression Integumentary History of Skin or Integumenta: No Blood Transfusions History of Blood Disorders: No Adverse Reaction to a Blood Tr: No Family Medical History Significant Family History: No Pertinent Family Hx Family Medial History: Cardiovascular disease 19 MOTHER, Onset:39 (HEART ATTACK ) MAT GRANDPA, Onset:50's - 60 (HEART ATTACK) Dementia MAT GRANDMA, Onset:50's - 60 Diabetes mellitus MAT GRANDPA MAT GRANDMA Hypertension 19 FATHER, Onset:Unknown 21 MOTHER, Onset:Unknown Thyroid disease MAT GRANDMA, Onset:Unknown No Family History of: AIDS Abdominal aortic aneurysm Montour's disease Alcoholism Alzheimer's disease Aphasia Arthritis Asthma Cancer of mouth Cataracts Colon cancer Completed stroke Congenital disease Congenital heart disease Coronary thrombosis Cystic fibrosis Deafness or hearing loss Drug abuse Dysphasia Fibrocystic disease of breast Gastroenteritis Glaucoma Headache disorder Hypercholesterolemia Kidney disease Myocardial infarction Neoplasm Osteoporosis Parkinson's disease Prostate cancer Psychosocial problem Respiratory disorder Seizure disorder Severe allergy Tuberculosis Visual disorder Physical Exam Vital Signs Vital Signs - First Documented 08/22/17 09:48 Temp 99.5 Pulse 118 Resp 18 B/P (MAP) 110/63 (79) Pulse Ox 98 Capillary Refill : Less Than 3 Seconds General Appearance: WD/WN, no apparent distress Eyes: Bilateral Eye Normal Inspection, Bilateral Eye PERRL, Bilateral Eye EOMI HEENT: PERRL/EOMI, normal ENT inspection Neck: non-tender, full range of motion Respiratory: no respiratory distress, no accessory muscle use, other (left lower chest wall tender to palpation, crackles left lower lobe posteriorly) Cardiovascular: regular rate, rhythm, no murmur Gastrointestinal: normal bowel sounds, non tender, soft Neurologic/Psychiatric: alert, normal mood/affect, oriented x 3 Skin: normal color, warm/dry Progress/Results/Core Measures Suspected Sepsis Recent Fever Within 48 Hours: No Infection Criteria Present: None New/Unexplained Altered Menta: No Sepsis Screen: No Definite Risk Sepsis Diagnosis: SIRS Temperature:99.5 Pulse: 118 Respiratory Rate: 18 Blood Pressure 110 /63 Mean: 79 Results/Orders My Orders Orders - VICENTE COREA APRN Chest Pa/Lat (2 View) (08/22/17 10:39) Hydrocodone/Apap 5/325 Tablet (Lortab 5 (08/22/17 10:45) Vital Signs/I&O Vital Sign - Last 12Hours 3/8/18 09:48 Temp 99.5 Pulse 118 Resp 18 B/P (MAP) 110/63 (79) Pulse Ox 98 Capillary Refill : Less Than 3 Seconds Blood Pressure Mean: 79 Departure Communication (Admissions) Progress Notes NAME: KRISTAN RASHEED [facility] REC#: [id number] PT STATUS: REG ER : 1990 PHYSICIAN: VICENTE COREA APRN ADMIT DATE: 08/22/17/ER Draft Date of Exam:08/22/17 CHEST PA/LAT (2 VIEW) INDICATION: Cough and congestion. COMPARISON: 02/18/2017 FINDINGS: Frontal and lateral radiographic views of the chest were obtained. There has been interval development of focal consolidation involving the lateral margins of the lingula of the left upper lobe. Right lung is relatively clear. No large effusion or pneumothorax is seen on either side. Cardiac silhouette and pulmonary vasculature within normal limits. Bony structures show no gross acute abnormalities. IMPRESSION: 1. New focal consolidation within the lingula consistent with pneumonia. Dictated on workstation # [id number] Dict: 08/22/17 1108 Trans: 08/22/17 1114 [place]IRAG [id number] Interpreted by: TERA ISABEL MD Electronically signed by: Impression Impression: Primary Impression: Left lower lobe pneumonia Disposition: 01 HOME, SELF-CARE Condition: Stable Departure-Patient Inst. Decision time for Depature: 10:44 Referrals: NO,LOCAL PHYSICIAN (PCP/Family) Primary Care Physician Patient Instructions: Pneumonia, Adult (DC) Add. Discharge Instructions: 1. Pain medication as directed 2. Make sure that you take a deep breath several times per hour keep the small airways in the base of your lungs open. Take antibiotics as directed. This is the most important medication. All discharge instructions reviewed with patient and/or family. Voiced understanding. Scripts Hydrocodone/Acetaminophen ([place] 5-325 Tablet) 1 Each Tablet 1 EACH PO Q4H Y for PAIN-SEVERE, #10 TAB Do not fill unless Augmentin is also filled Prov: VICENTE COREA APRN 08/22/17 Amoxicillin/Potassium Clav (Augmentin 875-125 Tablet) 1 Each Tablet 1 EACH PO BID, #14 TAB Prov: VICENTE COREA APRN 08/22/17 Work/School Note: Work Release Form Date Seen in the Emergency Department: Aug 22, 2017 Return to Work: Aug 24, 2017 VICENTE COREA APRN Aug 22, 2017 10:45
--- NOTE | 2017-08-22 11:14 | Diagnostic Imaging Report ---
INDICATION: Cough and congestion. COMPARISON: 02/18/2017 FINDINGS: Frontal and lateral radiographic views of the chest were obtained. There has been interval development of focal consolidation involving the lateral margins of the lingula of the left upper lobe. Right lung is relatively clear. No large effusion or pneumothorax is seen on either side. Cardiac silhouette and pulmonary vasculature within normal limits. Bony structures show no gross acute abnormalities. IMPRESSION: 1. New focal consolidation within the lingula consistent with pneumonia. Dictated by: Dictated on workstation # [id number]
[2017-08-22 11:26] VITALS: BP 110/63
== END 2017-08-22 11:26 | disposition home or self-care (01) ==
LOC: EDUNIT# 09:30 → ER 09:33
DX: J18.1 Lobar pneumonia, unspecified organism (principal); F32.9 Major depressive disorder, single episode, unspecified; F17.210 Nicotine dependence, cigarettes, uncomplicated; Z82.49 Family history of ischemic heart disease and other diseases of the circulatory system
CPT/HCPCS: 71046

== ENCOUNTER 2017-08-27 11:56 | Emergency (ER) | payer MEDICAID ==
[~2017-08-27] VITALS: Ht 167.6 cm; Wt 52.2 kg
[~2017-08-27 11:56] MED LIST changes: +AMOX-358 PO; +HYDR-757 PO
--- NOTE | 2017-08-27 12:44 | ED Respiratory ---
General Chief Complaint: Respiratory Problems Stated Complaint: COUGH/CONGESTION RIB PAIN Nursing Triage Note: PT CO COUGH, CONGESTION, RIB PAIN FOR APPROXIMATELY TWO WEEKS. Source: patient, old records Exam Limitations: no limitations History of Present Illness Date Seen by Provider: Aug 27, 2017 Time Seen by Provider: 12:25 Initial Comments This 27-year-old woman presents to the emergency room with complaints of left- sided chest pain especially with deep breathing. She was seen on August 22 for left lower lobe pneumonia. She was prescribed Augmentin and has been taking it. She has 2 days left on her course of treatment. She states pain has improved but is still present. She last took ibuprofen last night. She did receive hydrocodone at her last visit but is now out. She still has some productive cough, shortness of air, and wheezing. Overall her symptoms are improving. She is still smoking but states this has been reduced to very little tobacco use. She denies any drug or alcohol use. She is no longer having fevers. Allergies and Home Medications Allergies Coded Allergies: No Known Drug Allergies (Unverified , 04/04/11) Home Medications Amoxicillin/Potassium Clav 1 Each Tablet, 1 EACH PO BID Prescribed by: VICENTE COREA on 08/22/17 1045 Sertraline HCl 100 Mg Tablet, 100 MG PO DAILY, (Reported) Patient Home Medication List Home Medication List Reviewed: Yes Constitutional: no symptoms reported EENTM: no symptoms reported Respiratory: see HPI Cardiovascular: no symptoms reported Gastrointestinal: no symptoms reported Genitourinary: no symptoms reported : No Musculoskeletal: see HPI Skin: no symptoms reported Psychiatric/Neurological: No Symptoms Reported Hematologic/Lymphatic: No Symptoms Reported Past Cdimkhv-Htycmi-Lkwirh Hx Patient Social History Alcohol Use: Occasionally Uses Number of Drinks Today: AA Alcohol Beverage of Choice: Beer Recreational Drug Use: No Smoking Status: Current Everyday Smoker Type Used: Cigarettes Recent Foreign Travel: No Contact w/Someone Who Travel: No Recent Infectious Disease Expo: No Recent Hopitalizations: No Physical Abuse: No Sexual Abuse: No Immunizations Up To Date Tetanus Booster (TDap): Unknown PED Vaccines UTD: No Seasonal Allergies Seasonal Allergies: No Surgeries History of Surgeries: No Respiratory History of Respiratory Disorde: Yes Respiratory Disorders: Pneumonia Cardiovascular History of Cardiac Disorders: No Neurological History of Neurological Disord: No Reproductive System : No Last Menstrual Period: Aug 21, 2017 Hx Reproductive Disorders: No Genitourinary History of Genitourinary Disor: No Gastrointestinal History of Gastrointestinal Di: No Musculoskeletal History of Musculoskeletal Dis: No Endocrine History of Endocrine Disorders: No HEENT History of HEENT Disorders: No Cancer History of Cancer: No Psychosocial History of Psychiatric Problem: Yes Behavioral Health Disorders: Anxiety, Depression Suicide Risk Score: 0 Integumentary History of Skin or Integumenta: No Blood Transfusions History of Blood Disorders: No Adverse Reaction to a Blood Tr: No Family Medical History Significant Family History: No Pertinent Family Hx Family Medial History: Cardiovascular disease 19 MOTHER, Onset:39 (HEART ATTACK ) MAT GRANDPA, Onset:50's - 60 (HEART ATTACK) Dementia MAT GRANDMA, Onset:50's - 60 Diabetes mellitus MAT GRANDPA MAT GRANDMA Hypertension 19 FATHER, Onset:Unknown 19 MOTHER, Onset:Unknown Thyroid disease MAT GRANDMA, Onset:Unknown No Family History of: AIDS Abdominal aortic aneurysm Real's disease Alcoholism Alzheimer's disease Aphasia Arthritis Asthma Cancer of mouth Cataracts Colon cancer Completed stroke Congenital disease Congenital heart disease Coronary thrombosis Cystic fibrosis Deafness or hearing loss Drug abuse Dysphasia Fibrocystic disease of breast Gastroenteritis Glaucoma Headache disorder Hypercholesterolemia Kidney disease Myocardial infarction Neoplasm Osteoporosis Parkinson's disease Prostate cancer Psychosocial problem Respiratory disorder Seizure disorder Severe allergy Tuberculosis Visual disorder Physical Exam Vital Signs Vital Signs - First Documented 08/27/17 12:17 Temp 98.0 Pulse 105 Resp 16 B/P (MAP) 129/75 (93) Pulse Ox 100 O2 Delivery Room Air Capillary Refill : Less Than 3 Seconds General Appearance: WD/WN, no apparent distress HEENT: PERRL/EOMI, normal ENT inspection, pharynx normal Neck: normal inspection Respiratory: no respiratory distress, no accessory muscle use, crackles (Very faint crackles in the left lung), other (Chest nontender) Cardiovascular: no edema, no murmur, tachycardia Extremities: non-tender, normal inspection, no pedal edema, no calf tenderness , other (Negative Max) Neurologic/Psychiatric: head of mobile II-XII nml as tested, no motor/sensory deficits, alert, normal mood/affect, oriented x 3 Skin: normal color, warm/dry Progress/Results/Core Measures Suspected Sepsis Recent Fever Within 48 Hours: No Infection Criteria Present: None New/Unexplained Altered Menta: No Sepsis Screen: No Definite Risk Sepsis Diagnosis: SIRS Temperature:98.0 Pulse: 105 Respiratory Rate: 16 Blood Pressure 129 /75 Mean: 93 Results/Orders Vital Signs/I&O Vital Sign - Last 12Hours 08/27/17 12:17 Temp 98.0 Pulse 105 Resp 16 B/P (MAP) 129/75 (93) Pulse Ox 100 O2 Delivery Room Air Capillary Refill : Less Than 3 Seconds Blood Pressure Mean: 93 Departure Impression Impression: Primary Impression: Left lower lobe pneumonia Qualified Codes: J18.1 - Lobar pneumonia, unspecified organism Additional Impression: Pleuritic chest pain Disposition: HOME, SELF-CARE Condition: Stable Departure-Patient Inst. Decision time for Depature: 12:35 Referrals: NO,LOCAL PHYSICIAN (PCP/Family) Primary Care Physician Patient Instructions: Chest Pain That Is Not Caused by the Heart (DC), Community-Acquired Pneumonia, Adult (DC) Add. Discharge Instructions: Complete your antibiotics as prescribed. For pain take ibuprofen 400 mg every 6 hours as needed. Add Tylenol (acetaminophen) up to 650 mg every 6 hours as needed for additional pain relief. Your pain may take several more days to resolve. Return to care if symptoms worsen or if fevers over 100 return. Reduce your smoking and work toward quitting. You may use nicotine replacement such as gum, patches, or lozenges. Do NOT use [id number] inhaled nicotine products. All discharge instructions reviewed with patient and/or family. Voiced understanding. MARLYN HUMPHRIES MD Aug 27, 2017 12:44
[2017-08-27 12:55] VITALS: BP 129/75
--- OUTSIDE RECORDS SUMMARY | 2017-08-27 12:59 | XMS REPORT | Continuity of Care Document ---
Author Author [facility] Organization [facility] Address Unknown Phone Unavailable Allergies Active Description Code Type Severity Reaction Onset Reported/Identified Relationship to Patient Clinical Status Yes No Known Drug Allergies [id number] Drug Allergy Unknown N/A 04/04/2011 Medications There is no data. Problems Date Dx Coded Attending Type Code Diagnosis Diagnosed By 01/22/2011 Ot 646.83 PREG COMPL NEC-ANTEPART 01/22/2011 Ot 789.00 ABDOMINAL PAIN, UNSPECIFIED SITE 01/27/2011 Ot 655.73 DECR MOVEMNT ANTEPARTUM CONDITION 04/06/2011 Ot 650 NORMAL DELIVERY 04/06/2011 Ot V27.0 DELIVER- SINGLE LIVEBORN 12/12/2013 VICENTE COREA EMR TRAINER Ot 521.00 UNSPEC DENTAL CARIES 07/05/2014 Ot [...] URINARY TRACT INFECTION, SITE NOT SPECIF 02/07/2016 ANGEL AGUERO L Ot R07.89 OTHER CHEST PAIN 02/07/2016 DENNIS AGUEROEN L Ot S23.41XA SPRAIN OF RIBS, INITIAL ENCOUNTER 02/07/2016 ANGEL AGUERO L Ot X39.8XXA OTHER EXPOSURE TO FORCES OF NATURE, INIT 02/07/2016 DENNIS AGUEROEN L Ot Y99.8 OTHER EXTERNAL CAUSE STATUS 02/08/2016 ANGEL AGUERO L Ot F15.10 OTHER STIMULANT ABUSE, UNCOMPLICATED 02/08/2016 ANGEL AGUERO L Ot F17.210 NICOTINE DEPENDENCE, CIGARETTES, UNCOMPL 02/08/2016 DENNIS AGUEROEN L Ot N39.0 URINARY TRACT INFECTION, SITE NOT SPECIF 02/08/2016 ANGEL AGUERO L Ot R07.89 OTHER CHEST PAIN 02/08/2016 ANGEL AGUERO L Ot S23.41XA SPRAIN OF RIBS, INITIAL ENCOUNTER 02/08/2016 ANGEL AGUERO Ot X39.8XXA OTHER EXPOSURE TO FORCES OF NATURE, INIT 02/08/2016 ANGEL AGUERO L Ot Y99.8 OTHER EXTERNAL [...] Ot V28.81 ENCOUNTER FOR ANATOMIC SURVEY 02/09/2017 DAYANRAA VILLAGOMEZ MD, Ot V28.81 ENCOUNTER FOR ANATOMIC SURVEY 02/09/2017 VICENTE COREA APRN Ot N39.0 URINARY TRACT INFECTION, SITE NOT SPECIF 02/09/2017 VICENTE COREA APRN Ot N89.8 OTHER SPECIFIED NONINFLAMMATORY DISORDER 02/09/2017 VICENTE COREA APRN Ot Z82.49 FAMILY HX OF ISCHEM HEART DIS AND OTH DI 02/09/2017 DAYANARA VILLAGOMEZ MD Ot V28.81 ENCOUNTER [...] DEPRESSIVE DISORDER, SINGLE EPISOD 02/18/2017 ALBERT GONZALEZ MD Ot J40 BRONCHITIS, NOT SPECIFIED ACUTE OR CH 02/18/2017 ALBERT GONZALEZ MD Ot M54.6 PAIN IN THORACIC SPINE 02/18/2017 ALBERT GONZALEZ MD Ot Z82.49 FAMILY HX OF ISCHEM HEART DIS AND OTH DI 05/16/2017 DAYANARA VILLAGOMEZ MD, Ot V28.81 ENCOUNTER FOR ANATOMIC SURVEY 05/16/2017 DAYANARA VILLAGOMEZ MD, Ot V28.81 ENCOUNTER FOR ANATOMIC SURVEY 05/30/2017 DAYANARA VILLAGOMEZ MD, Ot V28.81 ENCOUNTER FOR ANATOMIC SURVEY 05/30/2017 DAYANARA VILLAGOMEZ MD, Ot V28.81 ENCOUNTER FOR ANATOMIC SURVEY 08/22/2017 DAYANARA VILLAGOMEZ MD, Ot V28.81 ENCOUNTER FOR ANATOMIC SURVEY 08/22/2017 DAYANARA VILLAGOMEZ MD, Ot V28.81 ENCOUNTER FOR [...] culture - 02/09/17 18:35 Bacterial urine culture [id number] NRG COLONY COUNT >100,000/ML NRG Microscopic examination [...] Status Pt. Type Provider Facility Loc./Unit Complaint [id number] 08/22/2017 09:33:00 08/22/2017 11:26:00 DIS Emergency VICENTE COREA EMR TRAINER [facility] ER COUGH/HURTS TO BREATH [id number] 02/18/2017 09:06:00 02/18/2017 11:04:00 DIS Emergency ALBERT GONZALEZ MD [facility] ER ABD PAIN,BACK PAIN [id number] 02/09/2017 18:26:00 02/09/2017 19:43:00 DIS Emergency VICENTE COREA EMR TRAINER [facility] ER PELVIC AREA ISSUES [id number] 04/04/2016 18:41:00 04/04/2016 20:32:00 DIS Emergency ANGEL AGUERO [facility] ER TONGUE SWELLING; TROUBLE BREATHING [id number] 02/07/2016 17:50:00 02/07/2016 21:21:00 DIS Emergency ANGEL AGUERO [facility] ER R SIDE PAIN [id number] 07/06/2014 06:08:00 07/08/2014 11:05:00 DIS Inpatient DAYANARA VILLAGOMEZ MD [facility] LDRP INDUCTION [id number] 02/12/2014 13:30:00 02/12/2014 23:59:59 CLS Outpatient DAYANARA VILLAGOMEZ MD [facility] RAD SUVEY [id number] 01/06/2014 11:11:00 01/06/2014 23:59:59 CLS Outpatient DAYANARA VILLAGOMEZ MD [facility] RAD DATING [id number] 12/12/2013 14:15:00 12/12/2013 15:10:00 DIS Emergency VICENTE COREA APRN [facility] ER DENTAL PAIN [id number] 04/04/2011 19:20:00 Document Registration [id number] 01/27/2011 22:34:00 Document Registration [id number] 01/21/2011 23:53:00 Document Registration [id number] 11/28/2010 12:53:00 Document Registration [id number] 10/03/2010 15:00:00 Document Registration
== END 2017-08-27 12:57 | disposition home or self-care (01) ==
LOC: EDUNIT# 11:56 → ER 11:59
DX: J18.1 Lobar pneumonia, unspecified organism (principal); R07.81 Pleurodynia; F41.9 Anxiety disorder, unspecified; F32.9 Major depressive disorder, single episode, unspecified; F17.210 Nicotine dependence, cigarettes, uncomplicated; Z82.49 Family history of ischemic heart disease and other diseases of the circulatory system
CPT/HCPCS: 99282

== ENCOUNTER 2018-02-26 19:51 | Emergency (ER) | payer MEDICAID, OTHER ==
[~2018-02-26] VITALS: Ht 167.6 cm; Wt 54.4 kg
[~2018-02-26 19:51] MED LIST changes: +HYDR-4226 PO; -HYDR-757 PO
--- OUTSIDE RECORDS SUMMARY | 2018-02-26 19:56 | XMS REPORT ---
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 Role Phone ELIA SHER Unavailable PROBLEMS Type Condition ICD9-CM Code [id number] Code Onset Dates Condition Status SNOMED Code Problem Other chronic pain G89.29 Active 10158811 Problem Mood disorder F39 Active 07885926 Problem Anxiety F41.9 Active 75451227 ALLERGIES No Known Allergies ENCOUNTERS Encounter Location Date Diagnosis [place] [place] [id number] October, Mood disorder F39 ; Pain in left shoulder M25.512 and Other chronic pain G89.29 [facility] [address] [address] October, Anxiety F41.9 [address] [id number] October, Pharyngitis due to other organism J02.8 [id number] [place] [address] October, Anxiety F41.9 [facility] [id number] [place] [phone] Nov, Lower abdominal pain R10.30 ; Acute cystitis without hematuria N30.00 and Acute seasonal allergic rhinitis, unspecified trigger J30.2 [facility] [id number] [place] [phone] October, [facility] [address] [address] Sep, Vaginal discharge N89.8 and Candidiasis of female genitalia B37.3 [facility] [id number] [place] [address] Sep, Acute frontal sinusitis, recurrence not specified J01.10 [facility] [address] [facility] [id number] [place] [address] Aug, [facility] [address] [facility] [id number] [place] [address] 10 Jul, 2010 IMMUNIZATIONS No Known Immunizations SOCIAL HISTORY Never Assessed REASON FOR VISIT penitentiary rx PLAN OF CARE VITAL SIGNS MEDICATIONS Medication Instructions Dosage Frequency Start Date End Date Duration Status HydrOXYzine HCl 25 MG Orally at bedtime 1 tablet as needed October, 30 day(s) Active RESULTS No Results PROCEDURES No Known procedures INSTRUCTIONS MEDICATIONS ADMINISTERED No Known Medications MEDICAL (GENERAL) HISTORY Type Description Date Medical History anxiety
--- OUTSIDE RECORDS SUMMARY | 2018-02-26 19:56 | XMS REPORT ---
Author Author ELIA SHER Organization [facility] Address [address] [place] [address] Care Team Providers Care Logger Name Role Phone ELIA SHER Unavailable PROBLEMS Type Condition ICD9-CM Code ANB00-HS Code Onset Dates Condition Status SNOMED Code Problem Other chronic pain G89.29 Active 43477947 Problem Mood disorder F39 Active 28479362 Problem Anxiety F41.9 Active 71097222 ALLERGIES No Known Allergies ENCOUNTERS Encounter Location Date Diagnosis [facility] [id number] [place] [phone] 18 Feb, 2018 [facility] [address] [address] Feb, [facility] [id number] [place] [address] Jan, Rash R21 ; Anxiety F41.9 and Vagina, candidiasis B37.[address] [id number] October, Mood disorder F39 ; Pain in left shoulder M25.512 and Other chronic pain G89.29 [facility] [id number] [place] [address] October, Anxiety F41.[address] [id number] October, Pharyngitis due to other organism J02.8 [facility] [id number] [place] [address] October, Anxiety F41.9 [facility] [id number] [place] [address] Nov, Lower abdominal pain R10.30 ; Acute cystitis without hematuria N30.00 and Acute seasonal allergic rhinitis, unspecified trigger J30.2 [facility] [id number] [address] October, [facility] [id number] [place] [address] Sep, Vaginal discharge N89.8 and Candidiasis of female genitalia B37.3 [place] [place] [address] Sep, Acute frontal sinusitis, recurrence not specified J01.10 [place] [address] [address] Aug, [facility] [id number] [place] [address] 10 Jul, 2010 IMMUNIZATIONS No Known Immunizations SOCIAL HISTORY Never Assessed REASON FOR VISIT care home rx PLAN OF CARE VITAL SIGNS MEDICATIONS Medication Instructions Dosage Frequency Start Date End Date Duration Status Zoloft 25 MG Orally Once a day 1 tablet 24h Active RESULTS No Results PROCEDURES No Known procedures INSTRUCTIONS MEDICATIONS ADMINISTERED No Known Medications MEDICAL (GENERAL) HISTORY Type Description Date Medical History anxiety Medical History depression
--- OUTSIDE RECORDS SUMMARY | 2018-02-26 19:56 | XMS REPORT ---
Author Author ELIA SHER Organization [facility] Address [address] [place] [address] Care Team Providers Care Alteration Tailor Apprentice Name Role Phone ELIA SHER Unavailable PROBLEMS Type Condition ICD9-CM Code [id number] Code Onset Dates Condition Status SNOMED Code Problem Other chronic pain G89.29 Active 76852924 Problem Mood disorder F39 Active 50616610 Problem Anxiety F41.9 Active 85011848 ALLERGIES No Known Allergies ENCOUNTERS Encounter Location Date Diagnosis [address] [place], [place] [id number] October, Mood disorder F39 ; Pain in left shoulder M25.512 and Other chronic pain G89.29 [facility] [address] [address] October, Anxiety F41.9 [address] [place], [place] [phone] October, Pharyngitis due to other organism J02.8 [id number] [place] [address] October, Anxiety F41.9 [facility] [id number] [place] [phone] Nov, Lower abdominal pain R10.30 ; Acute cystitis without hematuria N30.00 and Acute seasonal allergic rhinitis, unspecified trigger J30.2 [facility] [id number] [place] [phone] October, [facility] [address] [phone] Sep, Vaginal discharge N89.8 and Candidiasis of female genitalia B37.3 [facility] [id number] [place] [address] Sep, Acute frontal sinusitis, recurrence not specified J01.10 [facility] [address] [facility] [id number] [place] [address] Aug, [facility] [address] [facility] [id number] [place] [address] 10 Jul, 2010 IMMUNIZATIONS No Known Immunizations SOCIAL HISTORY Never Assessed REASON FOR VISIT LONG-TERM PLAN OF CARE VITAL SIGNS Height 66.25 in 2017-10-29 Weight 119 lbs 2017-10-29 Heart Rate 80 bpm 2017-10-29 Respiratory Rate 16 2017-10-29 BMI 19.06 kg/m2 2017-10-29 Blood pressure systolic 108 mmHg 2017-10-29 Blood pressure diastolic 76 mmHg 2017-10-29 MEDICATIONS Medication Instructions Dosage Frequency Start Date End Date Duration Status Amoxicillin 500 mg Orally 3 times a day 1 tablet 8h October, October, 10 day(s) Active PredniSONE 20 mg Orally Once a day 2 tablets 24h October, October, 05 days Active RESULTS No Results PROCEDURES No Known procedures INSTRUCTIONS MEDICATIONS ADMINISTERED No Known Medications MEDICAL (GENERAL) HISTORY Type Description Date Medical History anxiety
--- OUTSIDE RECORDS SUMMARY | 2018-02-26 19:56 | XMS REPORT ---
Author Author ANH OCHOA Organization [facility] Address [address] [place] [address] Care Team Providers Care Rn Diabetes Name Role Phone ANH OCHOA Unavailable PROBLEMS Unknown Problems ALLERGIES No Known Allergies ENCOUNTERS Encounter Location Date Diagnosis [facility] [id number] [place] [phone] Sep, [facility] [id number] [place] [address] Nov, Lower abdominal pain R10.30 ; Acute cystitis without hematuria N30.00 and Acute seasonal allergic rhinitis, unspecified trigger J30.2 [facility] [id number] [place] [address] October, [facility] [id number] [place] [address] Sep, Vaginal discharge N89.8 and Candidiasis of female genitalia B37.3 [place] [id number] [place] [address] Sep, Acute frontal sinusitis, recurrence not specified J01.10 [place] [address] [place] [address] Aug, [place] [address] [place] [address] 10 Jul, 2010 IMMUNIZATIONS No Known Immunizations SOCIAL HISTORY Never Assessed REASON FOR VISIT Abdominal pain/ back pain- hurts when walking- started a couple days ago JStrasserRN PLAN OF CARE Activity Details Follow Up prn Reason: VITAL SIGNS Height 66.25 in 2016-12-06 Weight 126.8 lbs 2016-12-06 Temperature 98.0 degrees Fahrenheit 2016-12-06 Heart Rate 88 bpm 2016-12-06 Respiratory Rate 20 2016-12-06 BMI 20.31 kg/m2 2016-12-06 Blood pressure systolic 110 mmHg 2016-12-06 Blood pressure diastolic 68 mmHg 2016-12-06 MEDICATIONS Medication Instructions Dosage Frequency Start Date End Date Duration Status Flonase 50 MCG/ACT Nasally Once a day 1 spray in each nostril 24h Nov, 30 day(s) Active Bactrim DS 800-160 MG Orally Twice a day 1 tablet 12h Nov,Nov 5 days Active Zyrtec Allergy 10 MG Orally Once a day 1 tablet 24h Nov, Dec, 30 day(s) Active RESULTS Name Result Date Reference Range UA LONG DIP (IN HOUSE) 2016-12-06 Lot # [id number] Exp date 2017-10-14 Clarity cloudy Color yellow Odor none GLU negative MASON negative KET negative SG 1.020 BLO negative pH 7.5 Protein negative URO 0.2 NIT negative MARLINE 1+ Lot # [id number] Exp date 2017-07 PROCEDURES Procedure Date Ordered Result Body Site URINALYSIS, AUTO, W/O SCOPE December 06, 2016 LAB NOT BILLED BY [facility] December 06, 2016 INSTRUCTIONS MEDICATIONS ADMINISTERED No Known Medications MEDICAL (GENERAL) HISTORY Type Description Date Medical History anxiety
--- OUTSIDE RECORDS SUMMARY | 2018-02-26 19:56 | XMS REPORT ---
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 Operator Name Role Phone ELIA SHER Unavailable PROBLEMS Type Condition ICD9-CM Code [id number] Code Onset Dates Condition Status SNOMED Code Problem Other chronic pain G89.29 Active 59329674 Problem Mood disorder F39 Active 97580174 Problem Anxiety F41.9 Active 34271020 ALLERGIES No Known Allergies ENCOUNTERS Encounter Location Date Diagnosis [facility] [id number] [place] [address] 18 Feb, 2018 [facility] [address] [address] Feb, [facility] [id number] [place] [address] 16 Jan, 2018 Rash R21 ; Anxiety F41.9 and Vagina, candidiasis B37.[address] [id number] October, Mood disorder F39 ; Pain in left shoulder M25.512 and Other chronic pain G89.29 [facility] [id number] [place] [address] October, Anxiety F41.[address] [phone] October, Pharyngitis due to other organism J02.8 [facility] [id number] [place] [address] October, Anxiety F41.9 [facility] [id number] [place] [address] Nov, Lower abdominal pain R10.30 ; Acute cystitis without hematuria N30.00 and Acute seasonal allergic rhinitis, unspecified trigger J30.2 [facility] [address] [facility] [id number] [address] October, [facility] WALK IN [facility] [address] [address] Sep, Vaginal discharge N89.8 and Candidiasis of female genitalia B37.3 [place] [address] [place] [address] Sep, Acute frontal sinusitis, recurrence not specified J01.10 [place] [address] [address] Aug, [place] [address] [address] [place] [address] 10 Jul, 2010 IMMUNIZATIONS No Known Immunizations SOCIAL HISTORY Never Assessed REASON FOR VISIT snf PLAN OF CARE VITAL SIGNS Height 66.25 in 2017-11-12 Weight 120 lbs 2017-11-12 Heart Rate 70 bpm 2017-11-12 Respiratory Rate 16 2017-11-12 BMI 19.22 kg/m2 2017-11-12 Blood pressure systolic 110 mmHg 2017-11-12 Blood pressure diastolic 76 mmHg 2017-11-12 MEDICATIONS Medication Instructions Dosage Frequency Start Date End Date Duration Status Diclofenac Sodium 75 MG Orally Twice a day 1 tablet with food or milk h October, Nov, 30 day(s) Active BuSpar 10 MG Orally Twice a day 1 tablet October, Active RESULTS No Results PROCEDURES No Known procedures INSTRUCTIONS MEDICATIONS ADMINISTERED No Known Medications MEDICAL (GENERAL) HISTORY Type Description Date Medical History anxiety Medical History depression
--- OUTSIDE RECORDS SUMMARY | 2018-02-26 19:57 | XMS REPORT | Continuity of Care Document ---
Author Author [facility] Organization [facility] Address Unknown Phone Unavailable Allergies Active Description Code Type Severity Reaction Onset Reported/Identified Relationship to Patient Clinical Status Yes NO KNOWN DRUG ALLERGIES NO KNOWN DRUG ALLERG UNKNOWN Yes No Known Drug Allergies [id number] Drug Allergy Unknown N/A 04/04/2011 Medications There is no data. Problems Date Dx Coded Attending Type Code Diagnosis Diagnosed By 01/22/2011 Ot 646.83 PREG COMPL NEC-ANTEPART 01/22/2011 Ot 789.00 ABDOMINAL PAIN, UNSPECIFIED SITE 01/27/2011 Ot 655.73 DECR MOVEMNT ANTEPARTUM CONDITION 04/06/2011 Ot 650 NORMAL DELIVERY 04/06/2011 Ot V27.0 DELIVER- SINGLE LIVEBORN 12/12/2013 VICENTE COREA LIBRARY ASSOCIATE Ot 521.00 UNSPEC DENTAL CARIES 07/05/2014 Ot 649.63 07/05/2014 Ot 649.63 07/05/2014 DAHLIA COWART, DAYANARA Ramon Ot V28.81 07/05/2014 DAYANARA VILLAGOMEZ MD Ot [...] ENCOUNTER FOR ANATOMIC SURVEY 02/07/2016 DAYANARA VILLAGOMEZ MD, Ot V28.81 ENCOUNTER FOR ANATOMIC SURVEY 02/07/2016 ANGEL AGUERO L Ot F15.10 OTHER STIMULANT ABUSE, UNCOMPLICATED 02/07/2016 ANGEL AGUERO L Ot F17.210 NICOTINE DEPENDENCE, CIGARETTES, UNCOMPL 02/07/2016 ANGEL AGUERO L Ot N39.0 URINARY TRACT INFECTION, SITE NOT SPECIF 02/07/2016 ANGEL AGUERO L Ot R07.89 OTHER CHEST PAIN 02/07/2016 ANGEL AGUERO L Ot S23.41XA SPRAIN OF RIBS, INITIAL ENCOUNTER 02/07/2016 ANGEL AGUERO L Ot X39.8XXA OTHER EXPOSURE TO FORCES OF NATURE, INIT 02/07/2016 ANGEL AGUERO L Ot Y99.8 OTHER EXTERNAL CAUSE STATUS 02/08/2016 ANGEL AGUERO L Ot F15.10 OTHER STIMULANT ABUSE, UNCOMPLICATED 02/08/2016 ANGEL AGUERO L Ot F17.210 NICOTINE DEPENDENCE, CIGARETTES, UNCOMPL 02/08/2016 ANGEL AGUERO L Ot N39.0 URINARY TRACT INFECTION, SITE NOT SPECIF 02/08/2016 ANGEL AGUERO L Ot R07.89 OTHER CHEST PAIN 02/08/2016 ANGEL AGUERO L Ot S23.41XA SPRAIN OF RIBS, INITIAL ENCOUNTER 02/08/2016 ANGEL AGUERO Ot X39.8XXA OTHER EXPOSURE TO FORCES OF NATURE, INIT 02/08/2016 ANGEL AGUERO L Ot Y99.8 OTHER EXTERNAL CAUSE STATUS 02/08/2016 ANGEL AGUERO Ot F15.10 OTHER STIMULANT ABUSE, UNCOMPLICATED 02/08/2016 ANGEL AGUERO L Ot F17.210 NICOTINE DEPENDENCE, CIGARETTES, UNCOMPL 02/08/2016 ANGEL AGUERO L Ot N39.0 URINARY TRACT INFECTION, SITE NOT SPECIF 02/08/2016 ANGEL AGUERO L Ot R07.89 OTHER CHEST PAIN 02/08/2016 ANGEL AGUERO L Ot S23.41XA SPRAIN OF RIBS, INITIAL ENCOUNTER 02/08/2016 ANGEL AGUERO L Ot X39.8XXA OTHER EXPOSURE TO FORCES OF NATURE, INIT 02/08/2016 ANGEL AGUERO L Ot Y99.8 OTHER EXTERNAL CAUSE STATUS 02/15/2016 ANGEL AGUERO Ot F15.10 OTHER STIMULANT ABUSE, UNCOMPLICATED 02/15/2016 [...] AGUERO Ot T78.3XXA ANGIONEUROTIC EDEMA, INITIAL ENCOUNTER 07/23/2016 Cole Rothman 465.8 ACUTE UPPER RESPIRATORY INFECTIONS OF OTHER MULTIPLE SITES 07/23/2016 Cole Rothman J06.9 ACUTE UPPER RESPIRATORY INFECTION, UNSPECIFIED 02/09/2017 DAYANARA VILLAGOMEZ MD Ot V28.81 ENCOUNTER FOR ANATOMIC SURVEY 02/09/2017 DAYANARA VILLAGOMEZ MD Ot V28.81 ENCOUNTER FOR ANATOMIC SURVEY 02/09/2017 VICENTE COREA APRN Ot N39.0 URINARY TRACT INFECTION, SITE NOT SPECIF 02/09/2017 VICENTE COREA APRN Ot N89.8 OTHER SPECIFIED NONINFLAMMATORY DISORDER 02/09/2017 VICENTE COREA APRN Ot Z82.49 FAMILY HX OF ISCHEM HEART DIS AND OTH DI 02/09/2017 DAYANARA VILLAGOMEZ MD Ot V28.81 ENCOUNTER FOR ANATOMIC SURVEY 02/09/2017 DAHLIA MD, DAYANARA J Ot V28.81 ENCOUNTER FOR ANATOMIC SURVEY 02/18/2017 DAYANARA VILLAGOMEZ MD Ot V28.81 ENCOUNTER FOR ANATOMIC SURVEY 02/18/2017 [...] ENCOUNTER FOR ANATOMIC SURVEY 05/16/2017 DAYANARA VILLAGOMEZ MD Ot V28.81 ENCOUNTER FOR ANATOMIC SURVEY 05/30/2017 DAYANARA VILLAGOMEZ MD Ot V28.81 ENCOUNTER FOR ANATOMIC SURVEY 05/30/2017 DAYANARA VILLAGOMEZ MD, Ot V28.81 ENCOUNTER FOR ANATOMIC SURVEY 08/22/2017 VICENTE COREA APRN Ot F17.210 NICOTINE DEPENDENCE, CIGARETTES, UNCOMPL 08/22/2017 VICENTE COREA APRN Ot F32.9 MAJOR DEPRESSIVE DISORDER, SINGLE EPISOD 08/22/2017 VICENTE COREA APRN Ot J18.1 LOBAR PNEUMONIA, UNSPECIFIED ORGANISM 08/22/2017 VICENTE COREA APRN Ot R05 COUGH 08/22/2017 VICENTE COREA APRN Ot Z82.49 FAMILY HX OF ISCHEM HEART DIS AND OTH DI 08/22/2017 DAYANARA VILLAGOMEZ MD Ot V28.81 ENCOUNTER FOR ANATOMIC SURVEY 08/22/2017 DAYANARA VILLAGOMEZ MD, Ot V28.81 ENCOUNTER FOR ANATOMIC SURVEY 08/26/2017 VICENTE COREA APRN Ot F17.210 NICOTINE DEPENDENCE, CIGARETTES, UNCOMPL 08/26/2017 VICENTE COREA APRN Ot F32.9 MAJOR DEPRESSIVE DISORDER, SINGLE EPISOD 08/26/2017 VICENTE COREA APRN Ot J18.1 LOBAR PNEUMONIA, UNSPECIFIED ORGANISM 08/26/2017 VICENTE COREA LIBRARY ASSOCIATE Ot R05 COUGH 08/26/2017 VICENTE COREA APRN Ot Z82.49 FAMILY HX OF ISCHEM HEART DIS AND OTH DI 08/27/2017 YANDEL COWART, MARLYN T Ot F17.210 NICOTINE DEPENDENCE, CIGARETTES, UNCOMPL 08/27/2017 YANDEL COWART, MARLYN T Ot F32.9 MAJOR DEPRESSIVE DISORDER, SINGLE EPISOD 08/27/2017 YANDEL COWART, MARLYN T Ot F41.9 ANXIETY DISORDER, UNSPECIFIED 08/27/2017 YANDEL COWART, MARLYN T Ot J18.1 LOBAR PNEUMONIA, UNSPECIFIED ORGANISM 08/27/2017 YANDEL COWART, MARLYN T Ot R07.81 PLEURODYNIA 08/27/2017 YANDEL COWART, MARLYN T Ot R07.89 OTHER CHEST PAIN 08/27/2017 YANDEL COWART, MARLYN T Ot Z82.49 FAMILY HX OF ISCHEM HEART DIS AND OTH DI 08/28/2017 VICENTE COREA LIBRARY ASSOCIATE Ot F17.210 NICOTINE DEPENDENCE, CIGARETTES, UNCOMPL 08/28/2017 VICENTE COREA APRN Ot F32.9 MAJOR DEPRESSIVE DISORDER, SINGLE EPISOD 08/28/2017 VICENTE COREA APRN Ot J18.1 LOBAR PNEUMONIA, UNSPECIFIED ORGANISM 08/28/2017 VICENTE COREA APRN Ot R05 COUGH 08/28/2017 VICENTE COREA APRN Ot Z82.49 FAMILY HX OF ISCHEM HEART DIS AND OTH DI Procedures Code Description Performed By Performed On [...] 02/07/16 20:09 URINE CULTURE RESULTS <10,000/ML NRG Influenza - 07/23/16 12:30 Influenza NEGATIVE FOR A and B 0.00-0.00 Genital Culture, Routine - 10/05/16 13:01 Genital Culture, Routine Note Complete urinalysis with reflex to culture - [...] culture - 02/09/17 18:35 Bacterial urine culture [id number] NRG COLONY COUNT >100,000/ML NRG Microscopic examination [...] measurement (mass/volume) 4.0 g/dL 3.2-4.5 Lipase - 09/04/17 09:38 Lipase 19 U/L 8-78 Capillary blood glucose measurement by glucometer (mass/volume) - 02/18/17 10: 16 Capillary blood glucose measurement by glucometer (mass/volume) 88 mg/dL 70-110 Capillary blood glucose measurement by glucometer (mass/volume) - 02/18/17 10: 17 Capillary blood glucose measurement by glucometer (mass/volume) 72 mg/dL 70-110 Encounters ACCT No. Visit Date/Time Discharge Status Pt. Type Provider Facility Loc./Unit Complaint [id number] 08/27/2017 11:59:00 08/27/2017 12:57:00 DIS Emergency YANDEL COWART, MARLYN Aj [facility] ER COUGH/CONGESTION RIB PAIN [id number] 08/22/2017 09:33:00 08/22/2017 11:26:00 DIS Emergency VICENTE COREA APRN [facility] ER COUGH/HURTS TO BREATH [id number] 02/18/2017 09:06:00 02/18/2017 11:04:00 DIS Emergency ALBERT GONZALEZ MD [facility] ER ABD PAIN,BACK PAIN [id number] 02/09/2017 18:26:00 02/09/2017 19:43:00 DIS Emergency VICENTE COREA APRN [facility] ER PELVIC AREA ISSUES [id number] 04/04/2016 18:41:00 04/04/2016 20:32:00 DIS Emergency ANGEL AGUERO [facility] ER TONGUE SWELLING; TROUBLE BREATHING [id number] 02/07/2016 17:50:00 02/07/2016 21:21:00 DIS Emergency ANGEL AGUERO [facility] ER R SIDE PAIN [id number] 07/06/2014 06:08:00 07/08/2014 11:05:00 DIS Inpatient DAYANARA VILLAGOMEZ MD [facility] LDRP INDUCTION [id number] 02/12/2014 13:30:00 02/12/2014 23:59:59 CLS Outpatient DAYANARA VILLAGOMEZ MD [facility] RAD [facility] [id number] 01/06/2014 11:11:00 01/06/2014 23:59:59 CLS Outpatient DAYANARA VILLAGOMEZ MD [facility] RAD DATING [id number] 12/12/2013 14:15:00 12/12/2013 15:10:00 DIS Emergency VICENTE COREA APRN [facility] ER DENTAL PAIN [id number] 02/26/2018 19:52:00 ACT Emergency RUBIO DOJOHNSON K [facility] ER CP, SOB - NOT HAVING CURRENTLY [id number] 04/04/2011 19:20:00 Document Registration [id number] 01/27/2011 22:34:00 Document Registration [id number] 01/21/2011 23:53:00 Document Registration [id number] 11/28/2010 12:53:00 Document Registration [id number] 10/03/2010 15:00:00 Document Registration [id number] 07/23/2016 11:50:00 07/23/2016 13:07:00 DIS Outpatient [facility] ER [id number] 10/08/2016 10:06:00 Document Registration [id number] 01/30/2018 11:40:00 01/30/2018 23:59:59 CLS [facility]
[2018-02-26 20:47] LABS: BILIRUBIN,URINE NEGATIVE (NEGATIVE); COLOR,URINE YELLOW; GLUCOSE, URINE (UA) NEGATIVE (NEGATIVE); KETONES,URINE NEGATIVE (NEGATIVE); LEUKOCYTE ESTERASE ,URINE 2+ (NEGATIVE); NITRITE,URINE NEGATIVE (NEGATIVE); PH,URINE 6 (5-9); PROTEIN,URINE NEGATIVE (NEGATIVE); UROBILINOGEN,URINE NORMAL (NORMAL)
[2018-02-26 20:53] LABS: BASOPHILS % (AUTO) 0 % (0-10); EOSINOPHILS # (AUTO) 0.1 10^3/uL (0.0-0.3); EOSINOPHILS % (AUTO) 1 % (0-10); HEMATOCRIT 44 % (35-52); HEMOGLOBIN 15.3 G/DL (11.5-16.0); LYMPHOCYTES # (AUTO) 1.8 X 10^3 (1.0-4.0); LYMPHOCYTES % (AUTO) 19 % (12-44); MEAN CORPUSCULAR HEMOGLOBIN 32 PG (25-34); MEAN CORPUSCULAR HGB CONC 35 G/DL (32-36); MEAN CORPUSCULAR VOLUME 92 FL (80-99); MEAN PLATELET VOLUME 11.2 FL (7.4-10.4); MONOCYTES # (AUTO) 0.7 X 10^3 (0.0-1.0); MONOCYTES % (AUTO) 8 % (0-12); NEUTROPHILS # (AUTO) 6.6 X 10^3 (1.8-7.8); NEUTROPHILS % (AUTO) 72 % (42-75); PLATELET COUNT 191 10^3/uL (130-400); RED BLOOD COUNT 4.76 10^6/uL (4.35-5.85); RED CELL DISTRIBUTION WIDTH 13.3 % (10.0-14.5); WHITE BLOOD COUNT 9.2 10^3/uL (4.3-11.0)
[2018-02-26 20:56] LABS: BACTERIA,URINE FEW /HPF; CLARITY,URINE CLEAR
--- NOTE | 2018-02-26 20:57 | Diagnostic Imaging Report ---
EXAMINATION: Chest radiograph, portable AP view. DATE: February 26, 2018 at 2045 hours. INDICATION: 28-year-old female, chest pain. COMPARISON: August 22, 2017. FINDINGS: Heart size and mediastinal contours are unremarkable. There is no identified pneumothorax. There is no large pleural effusion. There is no focal airspace consolidation. There is resolution of previously noted airspace consolidation in the left mid to lower lung on prior exam. IMPRESSION: 1. No identified acute cardiopulmonary abnormality. Dictated by: Dictated on workstation # [id number]
[2018-02-26 20:58] LABS: PROTHROMBIN TIME PATIENT 13.1 SEC (12.2-14.7)
[2018-02-26 21:02] LABS: AMPHETAMINE SCREEN, URINE POSITIVE (NEGATIVE); BARBITURATE SCREEN URINE NEGATIVE (NEGATIVE); BENZODIAZEPINES SCREEN URINE NEGATIVE (NEGATIVE); CANNABINOID SCREEN, URINE NEGATIVE (NEGATIVE); COCAINE SCREEN URINE NEGATIVE (NEGATIVE); METHADONE STAT NEGATIVE (NEGATIVE); METHAMPHETAMINE SCREEN URINE S POSITIVE (NEGATIVE); OPIATE SCREEN URINE POSITIVE (NEGATIVE); OXYCODONE STAT NEGATIVE (NEGATIVE); PROPOXYPHENE STAT NEGATIVE (NEGATIVE); TRICYCLIC ANTIDEPRESSANTS SCRE NEGATIVE (NEGATIVE)
[2018-02-26 21:09] LABS: ALANINE AMINOTRANSFERASE 11 U/L (0-55); ALBUMIN 4.7 GM/DL (3.2-4.5); ALKALINE PHOSPHATASE 73 U/L (40-136); AMYLASE 35 U/L (25-125); BILIRUBIN,TOTAL 0.4 MG/DL (0.1-1.0); BUN/CREATININE RATIO 11; CALCIUM 9.5 MG/DL (8.5-10.1); CARBON DIOXIDE 20 MMOL/L (21-32); CHLORIDE 106 MMOL/L (98-107); CREATINE KINASE 68 U/L (29-168); GFR ESTIMATED > 60; GLUCOSE 74 MG/DL (70-105); LIPASE 19 U/L (8-78); MAGNESIUM 2.2 MG/DL (1.8-2.4); POTASSIUM 3.2 MMOL/L (3.6-5.0); SODIUM 141 MMOL/L (135-145); TOTAL PROTEIN 6.8 GM/DL (6.4-8.2)
--- NOTE | 2018-02-26 21:13 | ED General ---
General Chief Complaint: Chest Wall/Rib Pain Stated Complaint: CP, SOB - NOT HAVING CURRENTLY Nursing Triage Note: AMBULATORY ED WITH 32 OZ FOUNTAIN DRINK. C/O "NOT FEELING GOOD FOR A FEW DAYS AND CHEST PRESSURE AND PAIN. TOOK PEPTO EARLIER WITH NO HELP. STATES IT HURTS TO BREATHE. NO C/O SORE THROAT. STATES TOOK METH YESTERDAY PLY BANDER AND HYDROCODONE. Nursing Sepsis Screen: No Definite Risk Source of Information: Patient (SPEECH VERY RAPID, AND SOMEWHAT MUMBLED AND ERRATIC, AND DIFFICULT TO KEEP ON SUBJECT. CONSTANT SNIFFING. ) History of Present Illness Date Seen by Provider: Feb 26, 2018 Time Seen by Provider: 20:15 Initial Comments PT ARRIVES VIA POV PT STATES "I WAS HAVING MAJOR CHEST PAIN" --FROM 10:00 AM TO 11:30 AM STATES IT BEGAN WHILE SHE WAS LAYING IN BED STATES SHE WAS VERY UPSET AT THE TIME STATES "IT FELT LIKE ACID REFLUX, THEN IF FELT LIKE I WAS GOING TO PUKE, THEN IT FELT LIKE SOMETHING WAS STUCK IN MY CHEST" STATES DISCOMFORT WAS IN THE MIDDLE OF HER CHEST AND WAS ALOT OF PRESSURE STATES THEN IT WAS GOING UP INTO HER THROAT AND THEN IT STOPPED, AND THEN IT STARTED DOING IT AGAIN. STATES IT FELT LIKE SOMEBODY HAD THEIR HANDS AROUND HER THROAT HAS NOT HAD ANY SYMPTOMS SINCE 11:30 THIS AM. SYMPTOMS WERE WORSE WITH DRINKING, WITH LEANING FORWARD OR BACK PT STATES "LIKE I WAS IN LABOR ONLY IT WAS IN MY CHEST" PT ALSO STATES SHE HAS "MAJOR PANIC ATTACKS" PT HAS HISTORY OF ALCOHOL ABUSE, CLAIMS LLOYD FOR 1 1/2 YEARS PT ALSO USES METH, HYDROCODONE AND XANAX ON REGULAR BASIS. CLAIMS LAST USE WAS YESTERDAY. CLAIMS NO IV USE. PCP: PATT-MARTA, YVONNE SHER Allergies and Home Medications Allergies Coded Allergies: No Known Drug Allergies (Unverified , 04/04/11) Home Medications Amoxicillin/Potassium Clav 1 Each Tablet, 1 EACH PO BID Prescribed by: VICENTE COREA on 08/22/17 1045 Sertraline HCl 100 Mg Tablet, 100 MG PO DAILY, (Reported) Patient Home Medication List Home Medication List Reviewed: Yes Review of Systems Review of Systems Constitutional: no symptoms reported EENTM: see HPI Respiratory: no symptoms reported; No dyspnea on exertion, No short of breath, No wheezing Cardiovascular: see HPI, chest pain; No edema, No palpitations, No syncope, No vascular heart diseas Gastrointestinal: no symptoms reported Genitourinary: no symptoms reported : No LMP: Feb 05, 2018 Musculoskeletal: no symptoms reported Skin: no symptoms reported Psychiatric/Neurological: Anxiety Past Wjhzkoh-Fsvgww-[id number] Hx Patient Social History Alcohol Use: Past History (HISTORY OF ABUSE--STATES SHE WOULD DRINK 7-10 BEERS A DAY OR MORE, CLAIMS NONE X 1 1/2 YEARS, PER PT ON 02/26/18) Number of Drinks Today: AA Alcohol Beverage of Choice: Beer Recreational Drug Use: Yes (METH; XANAX; HYDROCODONE--CLAIMS NO IV USE) Drug of Choice: METH, HYDROCODONE, XANAX Smoking Status: Current Everyday Smoker (1 PPD) Type Used: Cigarettes (1 PPD) Recent Foreign Travel: No Contact w/Someone Who Travel: No Recent Infectious Disease Expo: No Recent Hopitalizations: No Immunizations Up To Date Tetanus Booster (TDap): Unknown PED Vaccines UTD: No Seasonal Allergies Seasonal Allergies: No Past Medical History Surgeries: No Respiratory: Yes Pneumonia Cardiac: No Neurological: No : No Reproductive Disorders: No Female Reproductive Disorders: Denies Genitourinary: No Gastrointestinal: No Musculoskeletal: No Endocrine: No HEENT: No Cancer: No Psychosocial: Yes (POLYSUBSTANCE ABUSE) Anxiety, Depression Integumentary: No Blood Disorders: No Adverse Reaction/Blood Tranf: No Family Medical History Cardiovascular disease 19 MOTHER, Onset:39 (HEART ATTACK ) MAT GRANDPA, Onset:50's - 60 (HEART ATTACK) Dementia MAT GRANDMA, Onset:50's - 60 Diabetes mellitus MAT GRANDPA MAT GRANDMA Hypertension 19 FATHER, Onset:Unknown 19 MOTHER, Onset:Unknown Thyroid disease MAT GRANDMA, Onset:Unknown No Family History of: AIDS Abdominal aortic aneurysm Real's disease Alcoholism Alzheimer's disease Aphasia Arthritis Asthma Cancer of mouth Cataracts Colon cancer Completed stroke Congenital disease Congenital heart disease Coronary thrombosis Cystic fibrosis Deafness or hearing loss Drug abuse Dysphasia Fibrocystic disease of breast Gastroenteritis Glaucoma Headache disorder Hypercholesterolemia Kidney disease Myocardial infarction Neoplasm Osteoporosis Parkinson's disease Prostate cancer Psychosocial problem Respiratory disorder Seizure disorder Severe allergy Tuberculosis Visual disorder No Pertinent Family Hx Physical Exam Vital Signs Vital Signs - First Documented 02/26/18 02/26/18 20:05 21:55 Temp 99.0 Pulse 124 Resp 19 B/P (MAP) 147/88 (107) Pulse Ox 100 O2 Delivery Room Air Capillary Refill : Less Than 3 Seconds Height, Weight, BMI Height: 5'6.00" Weight: 120lbs. oz. 54.034874qz; 24.46 BMI Method:Stated General Appearance: No Apparent Distress, Other (CONSTANT SNIFFING, SPEECH RAPID, SOMEWHAT MUMBLED AND ERRATIC. ) HEENT: PERRL/EOMI Neck: Full Range of Motion, Normal Inspection, Non Tender, Supple Respiratory: Normal Breath Sounds, No Accessory Muscle Use, No Respiratory Distress Cardiovascular: No Edema, No JVD, No Murmur, Normal Peripheral Pulses, Tachycardia (MILD 100-110'S) Gastrointestinal: No Organomegaly, Non Tender, Soft Back: No CVA Tenderness Extremity: Normal Capillary Refill, Normal Inspection, Normal Range of Motion, Non Tender, No Calf Tenderness, No Pedal Edema Neurologic/Psychiatric: Alert, Oriented x3, No Motor/Sensory Deficits, provider enrollment specialist II- XII Norm as Tested Skin: Normal Color, Warm/Dry Progress/Results/Core Measures Suspected Sepsis Recent Fever Within 48 Hours: Yes Infection Criteria Present: None New/Unexplained Altered Menta: No Sepsis Screen: No Definite Risk SIRS Temperature:99.0 Pulse: 124 Respiratory Rate: 19 Blood Pressure 147 /88 Mean: 107 Results/Orders Lab Results My Orders Vital Signs/I&O Capillary Refill : Less Than 3 Seconds Blood Pressure Mean: 107 Point of Care Testing Urine -Bedside: Negative Progress Note : Progress Note UNEVENTFUL ER STAY NO SYMPTOMS DURING STAY ECG Initial ECG Impression Date: Feb 26, 2018 Initial ECG Impression Time: 20:16 Initial ECG Rate: 111 Initial ECG Rhythm: S.Tach Diagnostic Imaging Comments CXR--NO ACUTE PROCESS, PER RADIOLOGIST REPORT @ 2112 Reviewed: Reviewed by Me Departure Impression Primary Impression: Methamphetamine use Additional Impressions: Chest pain Anxiety Disposition: HOME, SELF-CARE Condition: Stable Departure-Patient Inst. Referrals: [facility] Patient Instructions: Anxiety, Adult (DC), Chest Pain (DC), Chest Pain That Is Not Caused by the Heart (DC), Drug Abuse Treatment, Drug Abuse and Drug Addiction (DC), Methamphetamine, SMOKING CESSATION Add. Discharge Instructions: HOME, REST NO DRUGS FOLLOW UP WITH [facility] THIS WEEK FOR FURTHER CARE RETURN TO ER IF WORSE All discharge instructions reviewed with patient and/or family. Voiced understanding. JOHNSON BERGERON DO Feb 26, 2018 21:13
[2018-02-26 21:14] LABS: ACETAMINOPHEN < 10 UG/ML (10-30)
[2018-02-26 21:29] LABS: CREATINE KINASE MB 0.9 NG/ML (<6.6); MYOGLOBIN SERUM 21.7 NG/ML (10.0-92.0)
[2018-02-26 21:32] LABS: TSH (THYROID ANALYZER) 0.37 UIU/ML (0.35-4.94)
[2018-02-26] MEDS ORDERED: KCL 10 MEQ TAB (MICRO K) PO ONE (21:45)
[2018-02-26 21:55] VITALS: BP 147/88
== END 2018-02-26 21:58 | disposition home or self-care (01) ==
LOC: EDUNIT# 19:51 → ER 19:52
DX: R07.89 Other chest pain (principal); F15.10 Other stimulant abuse, uncomplicated; F41.9 Anxiety disorder, unspecified; F32.9 Major depressive disorder, single episode, unspecified; Z87.01 Personal history of pneumonia (recurrent); Z82.49 Family history of ischemic heart disease and other diseases of the circulatory system
CPT/HCPCS: 36415; 71045; 80053; 80306; 80320; 80329; 81000; 82150; 82550; 82553; 83690; 83735; 83874; 83880; 84443; 84484; 84703; 85025; 85610; 85730; 93005; 93041

== ENCOUNTER 2019-12-06 04:53 | Emergency (ER) | payer SELFPAY ==
[~2019-12-06] VITALS: Ht 167.6 cm; Wt 52.3 kg
--- OUTSIDE RECORDS SUMMARY | 2019-12-06 04:59 | XMS REPORT ---
Author Author [facility] [place] Address [address] [address] Care Team Providers Care Aircraft Delivery Checker Name Role Phone NO, LOCAL PHYSICIAN Unavailable Unavailable DAYANARA VILLAGOMEZ Unavailable NO, LOCAL PHYSICIAN Unavailable Unavailable JOANA GIPSON Unavailable ELIA SHER Unavailable ELIA SHER Unavailable ELIA SHER Unavailable ELIA SHER Unavailable ELIA SHER Unavailable ELIA SHER Unavailable ELIA SHER Unavailable ELIA SHER Unavailable ELIA SHER Unavailable PCP, NONE Unavailable Unavailable SHAI ASTUDILLO Unavailable Unavailable JOHNSON VAZQUEZ Unavailable Unavailable JOHNSON VAZQUEZ Unavailable Unavailable Unavailable Unavailable Unavailable Unavailable Allergies Normalized Allergy Reported Date of Reaction(s) Care Provider Facility Allergy Type classification allergen Allergy Onset DA (23 Unclassified No Known Drug 04-04-2011 - no information VICENTE COREA Not Available sources.) Allergies (13731) no information Unclassified NO KNOWN DRUG UNKNOWN SHAI ESCOBEDO Not Available (1 source.) ALLERGIES (20530) Medications Medication Ingredient Drug Dose Dates Status Sig Sig Care Class(es) (Normalized) (Original) Provid er cetirizine cetirizine Histamine-1 10 mg 01-31-20 Active no Cetirizine no hydrochlori Translation Receptor 18 - information HCl 10 mg name de 10 mg s: [ Antagonist 06-29-19 Orally Once oral tablet Cetirizine 19 a day 1 (1 source.) HCl 10 mg] tablet 24h 16 Jan, 2018 Jun, 30 day(s) Active fluconazole fluconazole Azole 150 mg 01-31-20 Active no Dif lucan 150 no 150 mg oral Translation Antifungal 18 - information MG Oral ly name tablet (1 s: [ 02-03-20 Once a day 1 source.) Diflucan 18 tablet 24h 150 MG] Jan, Jan, 03 days Active gabapentin gabapentin Anti-epilep 300 mg 01-31-20 Active no Neurontin no 300 mg oral Translation tic Agent 18 information 300 MG name capsule (1 s: [ Orally Three source.) Neurontin times a day 300 MG] 1 capsule 8h Jan, 30 day(s) Active loratadine Loratadine no 10 mg 05-20-20 Active no Lorat adine no 10 mg oral Translation information 18 information 10 MG O rally name tablet (1 s: [ Once a day 1 source.) Loratadine tablet 24h 10 MG] May, 30 day(s) Active prazosin 1 Prazosin alpha-Adren 1 mg 05-13-20 Active no Pr azosin HCl no mg oral Translation ergic 18 information 1 MG Orally name capsule (1 s: [ Tatiana Once a day 1 source.) Prazosin capsule at HCl 1 MG] bedtime 24h Apr, 30 day(s) Active risperiDONE risperiDONE Atypical 2 mg 04-29-20 Active no R isperdal 2 no 2 mg oral Translation Antipsychot 18 information MG Orall y 2 name tablet (2 s: [ ic times a day sources.) Risperdal 1 1 tablet 12h MG, Apr, Risperidone 30 day(s) 2 MG Oral Active Tablet [Risperdal] , Risperdal 2 MG] 1 mg 04-29-2018 Active no Risperda no name inform l 1 MG ation Orally 2 times a day 1 tablet 12h Apr, 30 day(s) Active triamcinolo triamcinolo Corticoster 1 01-31-20 Active no Triamcinolon no ne ne oid mg/mL 18 information e Acetonide name acetonide 1 Translation 0.1 % mg/ml s: [ Externally topical Triamcinolo Twice a day cream (1 ne 1 source.) Acetonide application 0.1 %] to affected area 12h Jan, Active Problems Active Problems Problem Normalized Date Last Normalized Normalized Provider Fa cility Classification Problem(s) Recorded Problem Problem Sta tus Duration Immunizations Encounter for Episodic Active ELIA Quigley ommunity [place] [address] [facility] for infectious infections of [facility] disease (3 with a [place] ([address]) sources.) predominantly sexual mode of transmission Translations: [ - Screen for STD (sexually transmitted disease) Z11.3] Unclassified Family history Episodic Active VICENTE COREA No t Available (18 sources.) of ischemic (41489) heart disease and other diseases of the circulatory system Residual High risk Episodic Active ELIA SHER Community codes; [facility] unclassified behavior of [facility] (6 sources.) Translations: [place] (38314) [ - Unprotected sex Z72.51] Other upper Other allergic Chronic Active ELIA SHER Co mmunity respiratory rhinitis [address] [facility] disease (1 Translations: of [facility] source.) [ - Seasonal [place] (53554) allergic rhinitis due to other allergic trigger J30.89] Other lower Personal Episodic Active JOHNSON BERGERON , DO Not Av ailable respiratory history of (99141) disease (3 pneumonia sources.) (recurrent) Other upper Seasonal Chronic Active ELIA SHER Communit y respiratory allergic [address] [facility] disease (1 rhinitis of [facility] source.) Translations: [place] () [ Seasonal allergic rhinitis due to other allergic trigger] Past or Other Problems Problem Normalized Date Last Normalized Normalized Provider Fa cility Classification Problem(s) Recorded Problem Problem Sta tus Duration Other injuries Angioneurotic Episodic Completed ANGEL Not Available and conditions edema, initial [place] (48349) due to encounter external causes (5 sources.) Chronic Bronchitis, Episodic Completed ALBERT Not Availa ble obstructive not specified MD LISA (39978) pulmonary as acute or disease and chronic bronchiectasis (5 sources.) Other lower Cough Episodic Completed no name no informat ion respiratory disease (3 sources.) Disorders of Dental caries, Episodic Completed VICENTE COREA No t Available teeth and jaw unspecified (96323) (6 sources.) Unclassified Encounter for Episodic Completed DAYANARA VILLAGOMEZ , Not Available (11 sources.) anatomic (92701) survey NEGATED Lobar Episodic Completed no name no informatio n no pneumonia, information (4 unspecified sources.) organism Mood disorders Major no information no information ALBERT Not Available (12 sources.) depressive MD LISA (04571) disorder, single episode, unspecified Diseases of Other diseases Episodic Completed ANGEL Not A vailable mouth; of tongue [place] (24201) excluding dental (5 sources.) External Other exposure no information no information ANGEL Not Available Injury - to forces of [place] (56312) Natural / nature, Environment (6 initial sources.) encounter External Other external no information no information ANGEL Not Available Injury - cause status [place] (43684) Unspecified (6 sources.) OB-related Other Episodic Completed DAYANARA VILLAGOMEZ , Not Johnna ilable trauma to specified MD (69708) perineum and trauma to vulva (5 perineum and sources.) vulva, delivered, with or without mention of antepartum condition Normal Outcome of Episodic Completed DAYANARA VILLAGOMEZ , Not Av ailable delivery, (91774) and/or single delivery (5 liveborn sources.) Spondylosis; Pain in Episodic Completed ALBERT Not Availa ble intervertebral thoracic spine GILA RIVER , MD (63939) disc disorders; other back problems (5 sources.) Other lower Pleurodynia Episodic Completed MARLYN Not Avai lable respiratory BRUEGGEMANN , (38612) disease (1 MD source.) Sprains and Sprain of Episodic Completed ANGEL Not Availa ble strains (6 ribs, initial [place]UE [place] (36034) sources.) encounter Procedures Procedure Normalized Procedure Procedure Result Performer Facility Date 05-06-2018 Collection venous no information no name [facility] blood venipuncture [facility] (13883) Medical induction of no information no name Not Avail able (04055) labor 05-06-2018 No Charge no information no name [facility] (74941) Repair of other no information no name Not Available (21262) current obstetric laceration Immunizations The data below is from unstructured sourcesNo immunization records.No immunization records.No immunization records. No Known Immunizations No Known Immunizations No Known Immunizations No Known Immunizations No Known Immunizations No Known Immunizations No Known Immunizations No Known Immunizations No Known Immunizations No Known Immunizations No Known Immunizations No Known Immunizations No Known Immunizations No Known Immunizations No Known Immunizations No Known Immunizations No Known Immunizations No Known Immunizations No Known Immunizations No Known Immunizations Results Test Name Value Interpretation Reference Range Date Time Fa cility (Normalized) (Normalized) (Medline Reference) other on 2018-05-13 Exp date Negative (no code) [facility] [place] ([id number]) imm/path on 2016-10-08 Bacteria Note (no code) 10-08-2016 Not Available identified Aer 11: (38983) cx Nom (Genital specimen) Vital Signs Vital Sign Value Interpretation Reference Date Time Care Prov ider Facility (Normalized) (Normalized) Range BMI (Body Mass 20.18 kg/m2 (no code) 15 - 25 kg/m2 05-20-2018 [facility] [employer] Community Index) [id number] [address] [place] [address] (21140) BMI (Body Mass 20.02 kg/m2 (no code) 15 - 25 kg/m2 05-13-2018 W [employer] Community Index) [id number]:000500 [address] [place] [address] (29829) BMI (Body Mass 19.7 kg/m2 (no code) 15 - 25 kg/m2 05-06-2018 BRYANNA HEIKE NIKKY Community Index) [id number]:000500 [address] [place] [address] (17485) BMI (Body Mass 19.22 kg/m2 (no code) 15 - 25 kg/m2 04-29-2018 W [employer] Community Index) 10:40-0500 [address] [facility] (91512) BMI (Body Mass 19.96 kg/m2 (no code) 15 - 25 kg/m2 01-30-2018 W [employer] Community Index) 12:40-0400 [address] [facility] (01450) Body 98.1 [degF] (no code) 97.8 - 99.0 01-30-2018 ELIA OSBORNE Community Temperature [degF] 12:40-[address] [place] [address] (30782) Height 168.28 cm (no code) cm 05-20-2018 ELIA Quigley ommunity [id number]:[id number] [address] [place] [address] (34412) Height 168.28 cm (no code) cm 05-13-2018 ELIA Quigley ommunity 10:000500 [address] [place] [address] (84774) Height 168.28 cm (no code) cm 05-06-2018 ELIA Quigley ommunity 10:000500 [address] [facility] (96075) Height 168.28 cm (no code) cm 04-29-2018 ELIA Quigley ommunity 10:40-[address] [place] [address] ([id number]) Height 168.28 cm (no code) cm 01-30-2018 ELIA Quigley ommunity 12:40-[address] [place] [address] (25219) Weight 57.15 kg (no code) kg 05-20-2018 ELIA SHER Co mmunity 09:40-[address] [place] [address] (14339) Weight 56.7 kg (no code) kg 05-13-2018 ELIA SHER Co mmunity 10:000500 [address] [place] [address] (24145) Weight 55.79 kg (no code) kg 05-06-2018 ELIA Ch mmunity 10:000500 [address] [place] [address] (58896) Weight 54.43 kg (no code) kg 04-29-2018 ELIA Ch mmunity [id number]:[id number] [address] [place] [address] (05084) Weight 56.52 kg (no code) kg 01-30-2018 ELIA SHER Co mmunity 12:40-[address] [place] [address] ([id number]) Interventions No Information Plan of Treatment Normalized Care Care Detail Care Activity Date Care Provider F acility Activity Collection venous no information no information ELIA SHER [address] [place] [address] blood venipuncture [facility] (57868) no information no information no information ELIA NIKKY [address] [place] [address] ([id number]) Goals No Information Social History No Information Functional Status The data below is from unstructured sources Query Response Date Christopher rded Patient Orientation Person Place Time Situation Normal For Age July 08, 2014 11:55am Mental Status No Information Encounters Encounter Normalized Encounter Encounter Diagnosis Care Provi robin Organization Date Type 05-20-2018 (ACUTE) Acute Visit Other allergic ELIA SHER (no [facility] rhinitis phone) [facility] (no alan ne) 05-13-2018 (ACUTE) Acute Visit High risk heterosexual ELIA SHER (no [facility] behavior phone) [facility] (no alan ne) 05-06-2018 (ACUTE) Acute Visit Acute maxillary ELIA SHER (n o [facility] sinusitis, unspecified phone) [facility] (no phone) 04-29-2018 (ACUTE) Acute Visit Unspecified mood ELIA SHER ( no [facility] [affective] disorder phone) [facility] (no p letitia) 02-26-2018 Emergency department no information no name no organization name - patient visit 02-26-2018 08-27-2017 Emergency department no information no name no organization name - patient visit 08-27-2017 08-22-2017 Emergency department no information no name no organization name - patient visit 08-22-2017 02-18-2017 Emergency department no information no name no organization name - patient visit 02-18-2017 12-12-2013 Emergency department no information no name no organization name - patient visit 12-12-2013 02-26-2018 Patient encounter no information no name no or ganization name 01-30-2018 Patient encounter no information no name no or ganization name NEGATED Patient encounter no information no name no or ganization name 11-12-2017 08-22-2017 Patient encounter no information no name no or ganization name 02-12-2014 Patient encounter no information no name no or ganization name 01-06-2014 Patient encounter no information no name no or ganization name 10-21-2018 Patient encounter no information no name no or ganization name procedure 07-17-2018 Patient encounter no information no name no or ganization name procedure 05-13-2018 Patient encounter no information no name no or ganization name procedure 05-06-2018 Patient encounter no information no name no or ganization name procedure 07-23-2016 Patient encounter no information no name no or ganization name - procedure 07-23-2016 Medical Equipment No Information Payers Normalized Payer Value Private Health Insurance no information Advance Directives Directive Response Recor ded Date/Time Advance Directives No 6:01pm Health Care Power of Sales Secretary No 02/07/16 6:01pm Organ Donor Yes 02/07/16 6:01pm Resuscitation Status Full Code 02/07/16 6:01pm Directive Response Recor ded Date/Time Advance Directives No 6:50pm Health Care Power of Sales Secretary No 04/04/16 6:50pm Organ Donor Yes 04/04/16 6:50pm Resuscitation Status Full Code 04/04/16 6:50pm Directive Response Recor ded Date/Time Advance Directives No 6:39am Health Care Power of Sales Secretary No 07/06/14 6:39am Organ Donor Yes 07/06/14 6:39am Resuscitation Status Full Code 07/06/14 6:39am Directive Response Recor ded Date/Time Advance Directives No 6:30pm Health Care Power of Sales Secretary No 02/09/17 6:30pm Organ Donor Yes 02/09/17 6:30pm Resuscitation Status Full Code 02/09/17 6:30pm Discharge Instructions No hospital discharge instructions.No hospital discharge instructions.No hospital discharge instructions.No hospital discharge instruction information available. Additional Source Comments This clinical document has been generated using [employer] software that has been certified by the Office of the National Coordinator for Health Information Technology (ONC 15.99.04.3023.Diam.31.00.0.595000) and the National Committee for [employer] (NCQA, as an eMeasure certified technology). FOR RECORDS PERTAINING TO PATIENTS WHO ARE OR HAVE BEEN ENROLLED IN A CHEMICAL D EPENDENCY/SUBSTANCE ABUSE PROGRAM, SOME INFORMATION MAY BE OMITTED. This clinica l summary was aggregated from multiple sources. Caution should be exercised in using it in the provision of clinical care. This summary normalizes information from multiple sources, and as a consequence, information in this document may ma terially change the coding, format and clinical context of patient data. In donita tion, data may be omitted in some cases. CLINICAL DECISIONS SHOULD BE BASED ON T HE PRIMARY CLINICAL RECORDS. [employer] provides no warranty or guara ntee of the accuracy or completeness of information in this document.The followi ng information is based on time limited clinical information UNRECOGNIZED CONTENT PROVIDED BELOW FOR UNRECOGNIZED SECTION MEDICAL (GENERAL) HISTORY Type Description Date Medical History anxiety Type Description Date Medical History anxiety Medical History depression UNRECOGNIZED CONTENT PROVIDED BELOW FOR UNRECOGNIZED SECTION REASON FOR VISIT depression-MISTY gutierres, wants to know if she can get a pap done todayJailjailjail residential
--- OUTSIDE RECORDS SUMMARY | 2019-12-06 05:00 | XMS REPORT ---
Author Author Jenae SHER Organization [facility] Address [address] [place] [address] Care Team Providers Care Division Sergeant Name Role Phone ELIA SHER Unavailable PROBLEMS Type Condition ICD9-CM Code [id number] Code Onset Dates Condition S tatus SNOMED Code Problem Seasonal allergic rhinitis due to other allergic trigger J30.89 Active 037796526 Problem Mood disorder F39 Active 313844 05 Problem Other chronic pain G89.29 Active 8 9033476 Problem Anxiety F41.9 Active [id number] ALLERGIES No Information ENCOUNTERS Encounter Location Date Diagnosis [address] [id number] May, Seasonal allergic rhinitis due to other allergic trigger J30.[address] [id number] Apr, Unprotected sex Z72.51 and Mood disorder F39 [address] [id number] Apr, Acute non-recurrent maxillary sinusitis J01.00 ; Anxiety F41.9 ; Unprotected sex Z72.51 and Screen for STD (sexually transmitted disease) Z11.[address] [id number] Apr, Mood disorder F39 [place] [id number] [facility] [id number] [address] [place] [phone] Jan, Rash R21 ; Anxiety F41.9 and Vagina, candidiasis B37.[address] [id number] October, Mood disorder F39 ; Pain in left shoulder M25.512 and Other chronic pain G89.29 [facility] [address] [facility] [id number] [address] [place] [phone] October, Anxiety F41.[address] [id number] October, Pharyngitis due to other organism J02.8 [facility] [address] [place] [id number] [address] [place] [phone] October, Anxiety F41.9 [facility] [address] [place] [id number] [address] [place] [phone] Nov, Lower abdominal pain R10.30 ; Acute cystitis without hematuria N30.00 and Acute seasonal allergic rhinitis, unspecified trigger J30.2 [facility] [address] [place] [id number] [address] [place] [phone] October, [facility] [address] [id number] Sep, Vaginal discharge N89.8 and Candidiasis of female genitalia B37.3 [place] [address] [phone] Sep, Acute frontal sinusitis, rec urrence not specified J01.10 [place] [address] [place] [id number] [address] [place] [phone] Aug, [place] [address] [phone] Jul, IMMUNIZATIONS No Known Immunizations SOCIAL HISTORY Never Assessed REASON FOR VISIT [facility] PLAN OF CARE VITAL SIGNS Height 66.25 in 2018-05-20 Weight 126 lbs 2018-05-20 Heart Rate 78 bpm 2018-05-20 Respiratory Rate 18 2018-05-20 BMI 20.18 kg/m2 2018-05-20 Blood pressure systolic 98 mmHg 2018-05-20 Blood pressure diastolic 66 mmHg 2018-05-20 MEDICATIONS Medication Instructions Dosage Frequency Start Date End Date Duration S tatus Risperdal 2 MG Orally 2 times a day 1 tablet 12h 13 Apr, 2018 30 day(s) Active Loratadine 10 MG Orally Once a day 1 tablet 24h May, 30 day(s) Active PredniSONE 20 MG Orally Once a day 2 tablet 24h May, 05 days Active RESULTS No Results PROCEDURES No Known procedures INSTRUCTIONS MEDICATIONS ADMINISTERED No Known Medications MEDICAL (GENERAL) HISTORY Type Description Date Medical History anxiety Medical History depression
--- OUTSIDE RECORDS SUMMARY | 2019-12-06 05:00 | XMS REPORT | Continuity of Care Document ---
Demographics Preferred Language Unknown Marital Status Unknown Mu-Ism Affiliation Unknown Race Unknown Ethnic Group Unknown Author Organization Unknown Address Unknown Phone Unavailable Allergies Active Description Code Type Severity Reaction Onset Reported/Identified Relationship to Patient Clinical Status Yes NO KNOWN DRUG ALLERGIES NO KNOWN DRUG ALLERG UNKNOWN Yes No Known Drug Allergies [id number] Drug Allergy Unknown N/A 04/04/2011 Medications There is no data. 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 81 07/05/2014 DAYANARA VILLAGOMEZ MD Ot V28. 81 07/08/2014 DAYANARA VILLAGOMEZ MD Ot 664. 81 OB PERINEAL TRAU NEC-DEL 07/08/2014 DAYANARA VILLAGOMEZ MD Ot V27. 0 DELIVER-SINGLE LIVEBORN 10/22/2014 Ot 649.63 10/22/2014 Ot 649.63 10/22/2014 DAYANARA VILLAGOMEZ MD Ot V28. 81 10/22/2014 DAYANARA VILLAGOMEZ MD, Ot V28. 81 02/07/2016 Ot 649.63 [place] SIZE DATE DISCREPANCY, ANTEPARTU 02/07/2016 Ot 649.63 [place] SIZE DATE DISCREPANCY, ANTEPARTU 02/07/2016 DAYANARA VILLAGOMEZ MD Ot V28. 81 ENCOUNTER FOR ANATOMIC SURVEY 02/07/2016 DAYANARA VILLAGOMEZ MD Ot V28. 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 81 ENCOUNTER FOR ANATOMIC SURVEY 02/09/2017 DAYANARA VILLAGOMEZ MD, Ot V28. 81 ENCOUNTER FOR ANATOMIC SURVEY 02/09/2017 VICENTE COREA APRN Ot N39 .0 URINARY TRACT INFECTION, SITE NOT SPECIF 02/09/2017 VICENTE COREA APRN Ot N89 .8 OTHER SPECIFIED NONINFLAMMATORY DISORDER 02/09/2017 VICENTE COREA APRN Ot Z82.49 FAMILY HX OF ISCHEM HEART DIS AND OTH DI 02/09/2017 DAYANARA VILLAGOMEZ MD, Ot V28. 81 ENCOUNTER FOR ANATOMIC SURVEY 02/09/2017 DAYANARA VILLAGOMEZ MD, Ot V28. 81 ENCOUNTER FOR ANATOMIC SURVEY 02/18/2017 DAHLIA MD, DAYANARA J Ot V28. 81 ENCOUNTER FOR ANATOMIC SURVEY 02/18/2017 DAYANARA VILLAGOMEZ MD Ot V28. 81 ENCOUNTER FOR ANATOMIC SURVEY 02/18/2017 ALBERT GONZALEZ [...] DIS AND OTH DI 05/16/2017 DAYANARA VILLAGOMEZ MD Ot V28. 81 ENCOUNTER FOR ANATOMIC SURVEY 05/16/2017 DAYANARA VILLAGOMEZ MD Ot V28. 81 ENCOUNTER FOR ANATOMIC SURVEY 05/30/2017 DAYANARA VILLAGOMEZ MD Ot V28. 81 ENCOUNTER FOR ANATOMIC SURVEY 05/30/2017 DAYANARA VILLAGOMEZ MD Ot V28. 81 ENCOUNTER FOR ANATOMIC SURVEY 08/22/2017 VICENTE COREA APRN Ot F17.210 NICOTINE DEPENDENCE, CIGARETTES, UNCOMPL 08/22/2017 VICENTE COREA APRN Ot F32 .9 MAJOR DEPRESSIVE DISORDER, SINGLE EPISOD 08/22/2017 VICENTE COREA APRN Ot J18 .1 LOBAR PNEUMONIA, UNSPECIFIED ORGANISM 08/22/2017 VICENTE COREA APRN Ot R05 COUGH 08/22/2017 VICENTE COREA APRN Ot Z82.49 FAMILY HX OF ISCHEM HEART DIS AND OTH DI 08/22/2017 DAYANARA VILLAGOMEZ MD Ot V28. 81 ENCOUNTER FOR ANATOMIC SURVEY 08/22/2017 DAYANARA VILLAGOMEZ MD Ot V28. 81 ENCOUNTER FOR ANATOMIC SURVEY 08/26/2017 VICENTE COREA APRN Ot F17.210 NICOTINE DEPENDENCE, CIGARETTES, UNCOMPL 08/26/2017 VICENTE CORAE APRN Ot F32 .9 MAJOR DEPRESSIVE DISORDER, SINGLE EPISOD 08/26/2017 VICENTE COREA APRN Ot J18 .1 LOBAR PNEUMONIA, UNSPECIFIED ORGANISM 08/26/2017 VICENTE COREA APRN Ot R05 COUGH 08/26/2017 VICENTE COREA ONLINE HEALTH AND FITNESS COACH Ot Z82.49 FAMILY HX OF ISCHEM HEART DIS AND OTH DI 08/27/2017 YANDEL COWART, MARLYN Aj Ot F17.210 NICOTINE DEPENDENCE, CIGARETTES, UNCOMPL 08/27/2017 YANDEL COWART, MARLYN Aj Ot F32.9 MAJOR DEPRESSIVE DISORDER, SINGLE EPISOD 08/27/2017 YANDEL COWART, MARLYN Aj Ot F41.9 ANXIETY DISORDER, UNSPECIFIED 08/27/2017 YANDEL COWART, MARLYN Aj Ot J18.1 LOBAR PNEUMONIA, UNSPECIFIED ORGANISM 08/27/2017 YANDEL COWART, MARLYN Aj Ot R07.81 PLEURODYNIA 08/27/2017 YANDEL COWART, MARLYN Aj Ot R07.89 OTHER CHEST PAIN 08/27/2017 YANDEL COWART, MARLYN Aj Ot Z82.49 FAMILY HX OF ISCHEM HEART DIS AND OTH DI 08/28/2017 VICENTE COREA ONLINE HEALTH AND 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 COACH Ot F17.210 NICOTINE DEPENDENCE, CIGARETTES, UNCOMPL 08/28/2017 VICENTE COREA ONLINE HEALTH AND FITNESS COACH Ot F32 .9 MAJOR DEPRESSIVE DISORDER, SINGLE EPISOD 08/28/2017 VICENTE COREA ONLINE HEALTH AND FITNESS COACH Ot J18 .1 LOBAR PNEUMONIA, UNSPECIFIED ORGANISM 08/28/2017 VICENTE COREA ONLINE HEALTH AND FITNESS COACH Ot R05 COUGH 08/28/2017 VICENTE COREA ONLINE HEALTH AND FITNESS COACH Ot Z82.49 FAMILY HX OF ISCHEM HEART DIS AND OTH DI 02/26/2018 HERIBERTO BERGERON DOA K Ot F15.10 OTHER STIMULANT ABUSE, UNCOMPLICATED 02/26/2018 RUBIO DO JOHNSON K Ot F32.9 MAJOR DEPRESSIVE DISORDER, SINGLE EPISOD 02/26/2018 RUBIO DO JOHNSON K Ot F41.9 ANXIETY DISORDER, UNSPECIFIED 02/26/2018 RUBIO DO JOHNSON K Ot R07.89 OTHER CHEST PAIN 02/26/2018 RUBIO DO JOHNSON K Ot Z82.49 FAMILY HX OF ISCHEM HEART DIS AND OTH DI 02/26/2018 RUBIO DO JOHNSON K Ot Z87.01 PERSONAL HISTORY OF PNEUMONIA (RECURRENT 02/28/2018 RUBIO DO JOHNSON K Ot F15.10 OTHER STIMULANT ABUSE, UNCOMPLICATED 02/28/2018 RUBIO DO, JOHNSON K Ot F32.9 MAJOR DEPRESSIVE DISORDER, SINGLE EPISOD 02/28/2018 JOHNSON BERGERON DO Ot F41.9 ANXIETY DISORDER, UNSPECIFIED 02/28/2018 JOHNSON BERGERON DO Ot R07.89 OTHER CHEST PAIN 02/28/2018 JOHNSON BERGERON DO Ot Z82.49 FAMILY HX OF ISCHEM HEART DIS AND OTH DI 02/28/2018 JOHNSON BERGERON DO Ot Z87.01 PERSONAL HISTORY OF PNEUMONIA (RECURRENT Procedures Code Description Performed By Per formed On 96.49 04/04/2011 73.6 04/05/2011 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 75.69 REPA IR OB LACERATION NEC 07/06/2014 Results Test Result Range Complete blood count (CBC) with automate d white blood cell (WBC) differential - 02/07/16 18:57 Blood leukocytes automated count (number/volume) 9.1 10*3/uL 4.3-11.0 Blood erythrocytes automated count (number/volume) 5.05 10*6/uL 4.35-5.85 Venous blood hemoglobin measurement (mass/volume) 16.3 g/dL 11.5-16.0 Blood hematocrit (volume fraction) 46 % 35-52 Automated erythrocyte mean corpuscular volume 91 [ foz_us] 80-99 Automated erythrocyte mean corpuscular h emoglobin (mass per erythrocyte) 32 pg 25-34 Automated erythrocyte mean corpuscular h emoglobin concentration measurement (mass/volume) 35 g/dL 32-36 Automated erythrocyte distribution width ratio 12. 9 % 10.0- 14.5 Automated blood platelet count (count/volume) 281 10*3/uL [...] 10*3 1.0-4.0 Blood monocytes automated count (number/volume) 0. 8 10*3 0.0-1.0 Automated eosinophil count 0.1 10*3/uL 0 .0-0.3 Automated blood basophil count (count/volume) 0.1 10*3/uL 0.0-0.1 Comprehensive metabolic panel - 02/07/16 18:57 Serum or plasma sodium measurement (moles/volume) 137 mmol/L 135-145 Serum or plasma potassium measurement (moles/volume) 3.8 mmol/L 3.6-5.0 Serum or plasma chloride measurement (moles/volume) 101 mmol/L 98-107 Carbon dioxide 25 mmol/L 21-32 Serum or plasma anion gap determination (moles/volume) 11 mmol/L 5-14 Serum or plasma urea nitrogen measurement (mass/volume ) 21 mg/dL 7-18 Serum or plasma creatinine measurement (mass/volume) 0.82 mg/dL 0.60-1.30 Serum or plasma urea nitrogen/creatinine mass ratio 26 NRG Serum or plasma creatinine measurement w ith calculation of estimated glomerular filtration rate > NRG Serum or plasma glucose measurement (mass/volume) 80 mg/dL 70-105 Serum or plasma calcium measurement (mass/volume) 9.8 mg/dL 8.5-10.1 Serum or plasma total bilirubin measurement (mass/volu me) 0.4 mg/dL 0.1-1.0 Serum or plasma alkaline phosphatase edlaney surement (enzymatic activity/volume) 89 U/L 40-136 Serum or plasma aspartate aminotransfera se measurement (enzymatic activity/volume) 21 U/L 5-34 Serum or plasma alanine aminotransferase measurement (enzymatic activity/volume) 26 U/L 0-55 Serum or plasma protein measurement (mass/volume) 7.1 g/dL 6.4-8.2 Serum or plasma albumin measurement (mass/volume) 4.5 g/dL 3.2-4.5 Serum or plasma ethanol measurement (mas s/volume) - 02/07/16 18:57 Serum or plasma ethanol measurement (mass/volume) < mg/dL <10 Fibrin D-dimer FEU measurement in platel et poor plasma (mass/volume) - 02/07/16 18:57 Fibrin D-dimer FEU measurement in platelet poor plasma (mass/volume) 0.57 ug/mL 0.00-0.49 Urine drug screening test - 08/23/16 20: 09 Urine acetaminophen detection by screening method POSITIVE NEGATIVE Urine phencyclidine detection by screening method NEGATIVE NEGATIVE Urine benzodiazepines detection by screening method NEGATIVE NEGATIVE Urine cocaine detection NEGATIVE NEGATI VE Urine amphetamines detection by screening method P OSITIVE NEGATIVE Urine methamphetamine detection by screening method POSITIVE NEGATIVE Urine cannabinoids detection by screening method N EGATIVE NEGATIVE Urine opiates detection by screening method NEGATI VE NEGATIVE Urine barbiturates detection NEGATIVE N EGATIVE Screening urine tricyclic antidepressants detection NEGATIVE NEGATIVE Urine methadone detection by screening method NEGA TIVE NEGATIVE Complete urinalysis with reflex to cultu re - 02/07/16 20:09 Urine color determination YELLOW NRG Urine clarity determination CLEAR NR G Urine pH measurement by test strip 6 5-9 Specific gravity of urine by test strip 1.015 1.016-1.022 Urine protein assay by test strip, semi-quantitative NEGATIVE NEGATIVE Urine glucose detection by automated test strip NE GATIVE NEGATIVE Erythrocytes detection in urine sediment by light micr oscopy NEGATIVE NEGATIVE Urine ketones detection by automated test strip NE GATIVE NEGATIVE Urine nitrite detection by test strip NEGATIVE NEGATIVE Urine total bilirubin detection by test strip NEGA TIVE NEGATIVE Urine urobilinogen measurement by automated test strip (mass/volume) NORMAL NORMAL Urine leukocyte esterase detection by dipstick 2+ NEGATIVE Automated urine sediment erythrocyte cou nt by microscopy (number/high power field) NONE NRG Automated urine sediment leukocyte count by microscopy (number/high power field) [HPF] NRG Bacteria detection in urine sediment by light microsco py FEW NRG Squamous epithelial cells detection in u rine sediment by light microscopy 5-10 NRG Crystals detection in urine sediment by light microsco py NONE NRG Casts detection in urine sediment by light microscopy NONE NRG Mucus detection in urine sediment by light microscopy NEGATIVE NRG Complete urinalysis with reflex to culture YES NRG Bacterial urine culture - 02/07/16 20:09 URINE CULTURE RESULTS <10,000/ML NRG Influenza - 07/23/16 12:30 Influenza NEGATIVE FOR A and B 0.00-0.0 0 Genital Culture, Routine - 10/05/16 13:0 1 Genital Culture, Routine Note Complete urinalysis with reflex to cultu re - 02/09/17 18:35 Urine color determination YELLOW NRG Urine clarity determination SLIGHTLY CLOUDY NRG Urine pH measurement by test strip 5 5-9 Specific gravity of urine by test strip 1.025 1.016-1.022 Urine protein assay by test strip, semi-quantitative NEGATIVE NEGATIVE Urine glucose detection by automated test strip NE GATIVE NEGATIVE Erythrocytes detection in urine sediment by light micr oscopy NEGATIVE NEGATIVE Urine ketones detection by automated test strip 1+ NEGATIVE Urine nitrite detection by test strip NEGATIVE NEGATIVE Urine total bilirubin detection by test strip NEGA TIVE NEGATIVE Urine urobilinogen measurement by automated test strip (mass/volume) 1 mg/dL NORMAL Urine leukocyte esterase detection by dipstick 3+ NEGATIVE Automated urine sediment erythrocyte cou nt by microscopy (number/high power field) NONE NRG Automated urine sediment leukocyte count by microscopy (number/high power field) [HPF] NRG Bacteria detection in urine sediment by light microsco py NEGATIVE NRG Squamous epithelial cells detection in u rine sediment by light microscopy 10-25 NRG Crystals detection in urine sediment by light microsco py NONE NRG Casts detection in urine sediment by light microscopy NONE NRG Mucus detection in urine sediment by light microscopy NEGATIVE NRG Complete urinalysis with reflex to culture YES NRG Urine beta human chorionic gonadotropin (hCG) measurement - 02/09/17 18:35 Urine beta human chorionic gonadotropin (hCG) measurem ent NEGATIVE NEGATIVE Bacterial urine culture - 02/09/17 18:35 Bacterial urine culture [id number] NRG COLONY COUNT >100,000/ML NRG Microscopic examination by wet preparati on - 02/09/17 18:50 WET PREP RESULTS 02-10-17 NRG Chlamydia trachomatis DNA detection by p robe and signal amplification method - 02/09/17 18:50 Chlamydia trachomatis DNA detection by p robe and target amplification method Not Detected Not Detected Neisseria gonorrhoeae DNA detection by p robe and signal amplification method - 02/09/17 18:50 Gonorrhea amp DNA-urine Not Detected No t Detected Complete urinalysis with reflex to cultu re - 02/18/17 08:27 Urine color determination YELLOW NRG Urine clarity determination CLEAR NR G Urine pH measurement by test strip 5 5-9 Specific gravity of urine by test strip 1.005 1.016-1.022 Urine protein assay by test strip, semi-quantitative NEGATIVE NEGATIVE Urine glucose detection by automated test strip NE GATIVE NEGATIVE Erythrocytes detection in urine sediment by light micr oscopy NEGATIVE NEGATIVE Urine ketones detection by automated test strip NE GATIVE NEGATIVE Urine nitrite detection by test strip NEGATIVE NEGATIVE Urine total bilirubin detection by test strip NEGA TIVE NEGATIVE Urine urobilinogen measurement by automated test strip (mass/volume) NORMAL NORMAL Urine leukocyte esterase detection by dipstick NEG ATIVE NEGATIVE Automated urine sediment erythrocyte cou nt by microscopy (number/high power field) NONE NRG Automated urine sediment leukocyte count by microscopy (number/high power field) NONE NRG Bacteria detection in urine sediment by light microsco py NEGATIVE NRG Squamous epithelial cells detection in u rine sediment by light microscopy 2-5 NRG Crystals detection in urine sediment by light microsco py NONE NRG Casts detection in urine sediment by light microscopy NONE NRG Mucus detection in urine sediment by light microscopy NEGATIVE NRG Complete urinalysis with reflex to culture NO NRG Complete blood count (CBC) with automate d white blood cell (WBC) differential - 02/18/17 09:38 Blood leukocytes automated count (number/volume) 6.8 10*3/uL 4.3-11.0 Blood erythrocytes automated count (number/volume) 4.20 10*6/uL 4.35-5.85 Venous blood hemoglobin measurement (mass/volume) 13.5 g/dL 11.5-16.0 Blood hematocrit (volume fraction) 39 % 35-52 Automated erythrocyte mean corpuscular volume 94 [ foz_us] 80-99 Automated erythrocyte mean corpuscular h emoglobin (mass per erythrocyte) 32 pg 25-34 Automated erythrocyte mean corpuscular h emoglobin concentration measurement (mass/volume) 34 g/dL 32-36 Automated erythrocyte distribution width ratio 13. 0 % 10.0- 14.5 Automated blood platelet count (count/volume) 168 10*3/uL [...] 10*3 1.0-4.0 Blood monocytes automated count (number/volume) 0. 4 10*3 0.0-1.0 Automated eosinophil count 0.1 10*3/uL 0 .0-0.3 Automated blood basophil count (count/volume) 0.0 10*3/uL 0.0-0.1 Comprehensive metabolic panel - 02/18/17 09:38 Serum or plasma sodium measurement (moles/volume) 142 mmol/L 135-145 Serum or plasma potassium measurement (moles/volume) 3.7 mmol/L 3.6-5.0 Serum or plasma chloride measurement (moles/volume) 107 mmol/L 98-107 Carbon dioxide 22 mmol/L 21-32 Serum or plasma anion gap determination (moles/volume) 13 mmol/L 5-14 Serum or plasma urea nitrogen measurement (mass/volume ) 10 mg/dL 7-18 Serum or plasma creatinine measurement (mass/volume) 0.65 mg/dL 0.60-1.30 Serum or plasma urea nitrogen/creatinine mass ratio 15 NRG Serum or plasma creatinine measurement w ith calculation of estimated glomerular filtration rate > NRG Serum or plasma glucose measurement (mass/volume) 58 mg/dL 70-105 Serum or plasma calcium measurement (mass/volume) 9.1 mg/dL 8.5-10.1 Serum or plasma total bilirubin measurement (mass/volu me) 0.4 mg/dL 0.1-1.0 Serum or plasma alkaline phosphatase delaney surement (enzymatic activity/volume) 85 U/L 40-136 Serum or plasma aspartate aminotransfera se measurement (enzymatic activity/volume) 16 U/L 5-34 Serum or plasma alanine aminotransferase measurement (enzymatic activity/volume) 11 U/L 0-55 Serum or plasma protein measurement (mass/volume) 6.5 g/dL 6.4-8.2 Serum or plasma albumin measurement (mass/volume) 4.0 g/dL 3.2-4.5 Lipase - 02/18/17 09:38 Lipase 19 U/L 8-78 Capillary blood glucose measurement by g lucometer (mass/volume) - 02/18/17 10:16 Capillary blood glucose measurement by glucometer (mas s/volume) 88 mg/dL 70-110 Capillary blood glucose measurement by g lucometer (mass/volume) - 02/18/17 10:17 Capillary blood glucose measurement by glucometer (mas s/volume) 72 mg/dL 70-110 Complete blood count (CBC) with automate d white blood cell (WBC) differential - 02/26/18 20:10 Blood leukocytes automated count (number/volume) 9.2 10*3/uL 4.3-11.0 Blood erythrocytes automated count (number/volume) 4.76 10*6/uL 4.35-5.85 Venous blood hemoglobin measurement (mass/volume) 15.3 g/dL 11.5-16.0 Blood hematocrit (volume fraction) 44 % 35-52 Automated erythrocyte mean corpuscular volume 92 [ foz_us] 80-99 Automated erythrocyte mean corpuscular h emoglobin (mass per erythrocyte) 32 pg 25-34 Automated erythrocyte mean corpuscular h emoglobin concentration measurement (mass/volume) 35 g/dL 32-36 Automated erythrocyte distribution width ratio 13. 3 % 10.0- 14.5 Automated blood platelet count (count/volume) 191 10*3/uL 130-400 Automated blood platelet mean volume measurement 11.2 [foz_us] 7.4-10.4 Automated blood neutrophils/100 leukocytes 72 % 42-75 Automated blood lymphocytes/100 leukocytes 19 % 12-44 Blood monocytes/100 leukocytes 8 % 0-12 Automated blood eosinophils/100 leukocytes 1 % 0-10 Automated blood basophils/100 leukocytes 0 % 0-10 Blood neutrophils automated count (number/volume) 6.6 10*3 1.8-7.8 Blood lymphocytes automated count (number/volume) 1.8 10*3 1.0-4.0 Blood monocytes automated count (number/volume) 0. 7 10*3 0.0-1.0 Automated eosinophil count 0.1 10*3/uL 0 .0-0.3 Automated blood basophil count (count/volume) 0.0 10*3/uL 0.0-0.1 Serum or plasma choriogonadotropin (preg xavier test) detection - 02/26/18 20:10 Serum or plasma choriogonadotropin ( test) de tection NEGATIVE NEGATIVE PT panel in platelet poor plasma by coag ulation assay - 02/26/18 20:10 Prothrombin time (PT) in platelet poor plasma by coagu lation assay 13.1 s 12.2-14.7 INR in platelet poor plasma or blood by coagulation as say 1.0 0.8-1.4 Activated partial thromboplastin time (a PTT) in platelet poor plasma bycoagulation assay - 02/26/18 20:10 Activated partial thromboplastin time (a PTT) in platelet poor plasma bycoagulation assay 28 s 24-35 Comprehensive metabolic panel - 02/26/18 20:10 Serum or plasma sodium measurement (moles/volume) 141 mmol/L 135-145 Serum or plasma potassium measurement (moles/volume) 3.2 mmol/L 3.6-5.0 Serum or plasma chloride measurement (moles/volume) 106 mmol/L 98-107 Carbon dioxide 20 mmol/L 21-32 Serum or plasma anion gap determination (moles/volume) 15 mmol/L 5-14 Serum or plasma urea nitrogen measurement (mass/volume ) 8 mg/dL 7-18 Serum or plasma creatinine measurement (mass/volume) 0.70 mg/dL 0.60-1.30 Serum or plasma urea nitrogen/creatinine mass ratio 11 NRG Serum or plasma creatinine measurement w ith calculation of estimated glomerular filtration rate > NRG Serum or plasma glucose measurement (mass/volume) 74 mg/dL 70-105 Serum or plasma calcium measurement (mass/volume) 9.5 mg/dL 8.5-10.1 Serum or plasma total bilirubin measurement (mass/volu me) 0.4 mg/dL 0.1-1.0 Serum or plasma alkaline phosphatase delaney surement (enzymatic activity/volume) 73 U/L 40-136 Serum or plasma aspartate aminotransfera se measurement (enzymatic activity/volume) 13 U/L 5-34 Serum or plasma alanine aminotransferase measurement (enzymatic activity/volume) 11 U/L 0-55 Serum or plasma protein measurement (mass/volume) 6.8 g/dL 6.4-8.2 Serum or plasma albumin measurement (mass/volume) 4.7 g/dL 3.2-4.5 Magnesium - 02/26/18 20:10 Magnesium 2.2 mg/dL 1.8-2.4 Serum or plasma creatine kinase measurem ent (enzymatic activity/volume) - 02/26/18 20:10 Serum or plasma creatine kinase measurem ent (enzymatic activity/volume) 68 U/L 29-168 Serum or plasma creatine kinase MB measu rement (enzymatic activity/volume) - 02/26/18 20:10 Serum or plasma creatine kinase MB measu rement (enzymatic activity/volume) 0.9 ng/mL <6.6 Serum or plasma troponin i.cardiac measu rement (mass/volume) - 02/26/18 20:10 Serum or plasma troponin i.cardiac measurement (mass/v olume) < ng/mL <0.30 Serum or plasma thyrotropin measurement by detection limit <=0.05 miu/l (units/volume) - 02/26/18 20:10 Serum or plasma thyrotropin measurement by detection limit <=0.05 miu/l (units/volume) 0.37 u[iU]/mL 0.35-4.94 Serum or plasma acetaminophen measuremen t (mass/volume) - 02/26/18 20:10 Serum or plasma acetaminophen measurement (mass/volume ) < ug/mL 10-30 Serum or plasma lithium measurement (mol es/volume) - 02/26/18 20:10 BNP level < pg/mL <100.0 Myoglobin, serum - 02/26/18 20:10 Myoglobin, serum 21.7 ng/mL 10.0-92.0 Serum or plasma amylase measurement (enz ymatic activity/volume) - 02/26/18 20:10 Serum or plasma amylase measurement (enzymatic activit y/volume) 35 U/L 25-125 Lipase - 02/26/18 20:10 Lipase 19 U/L 8-78 Serum or plasma ethanol measurement (mas s/volume) - 02/26/18 20:10 Serum or plasma ethanol measurement (mass/volume) < mg/dL <10 Complete urinalysis with reflex to cultu re - 02/26/18 20:30 Urine color determination YELLOW NRG Urine clarity determination CLEAR NR G Urine pH measurement by test strip 6 5-9 Specific gravity of urine by test strip 1.020 1.016-1.022 Urine protein assay by test strip, semi-quantitative NEGATIVE NEGATIVE Urine glucose detection by automated test strip NE GATIVE NEGATIVE Erythrocytes detection in urine sediment by light micr oscopy NEGATIVE NEGATIVE Urine ketones detection by automated test strip NE GATIVE NEGATIVE Urine nitrite detection by test strip NEGATIVE NEGATIVE Urine total bilirubin detection by test strip NEGA TIVE NEGATIVE Urine urobilinogen measurement by automated test strip (mass/volume) NORMAL NORMAL Urine leukocyte esterase detection by dipstick 2+ NEGATIVE Automated urine sediment erythrocyte cou nt by microscopy (number/high power field) NONE NRG Automated urine sediment leukocyte count by microscopy (number/high power field) [HPF] NRG Bacteria detection in urine sediment by light microsco py FEW NRG Squamous epithelial cells detection in u rine sediment by light microscopy 5-10 NRG Crystals detection in urine sediment by light microsco py NONE NRG Casts detection in urine sediment by light microscopy NONE NRG Mucus detection in urine sediment by light microscopy NEGATIVE NRG Complete urinalysis with reflex to culture NO NRG Urine drug screening test - 02/26/18 20: 30 Urine phencyclidine detection by screening method NEGATIVE NEGATIVE Urine benzodiazepines detection by screening method NEGATIVE NEGATIVE Urine cocaine detection NEGATIVE NEGATI VE Urine amphetamines detection by screening method P OSITIVE NEGATIVE Urine methamphetamine detection by screening method POSITIVE NEGATIVE Urine cannabinoids detection by screening method N EGATIVE NEGATIVE Urine opiates detection by screening method POSITI VE NEGATIVE Urine barbiturates detection NEGATIVE N EGATIVE Screening urine tricyclic antidepressants detection NEGATIVE NEGATIVE Urine methadone detection by screening method NEGA TIVE NEGATIVE Urine oxycodone detection NEGATIVE NEGA TIVE Urine propoxyphene detection NEGATIVE N EGATIVE Encounters ACCT No. Visit Date/Time Discharge Status Pt. Type Provider Facility Loc./Unit Complaint [id number] 10/08/2016 10:06:00 Document Registration [id number] 07/23/2016 11:50:00 07/23/2016 13:07: 00 [facility] [id number] 02/26/2018 19:52:00 018 21:58:00 DIS Emergency JOHNSON BERGERON DO a [facility] ER CP, SOB - NOT HAVING CU RRENTLY [id number] 08/27/2017 11:59:00 018 12:57:00 DIS Emergency YANDEL COWART, MARLYN Aj [facility] ER COUGH/CONGESTIO N RIB PAIN [id number] 08/22/2017 09:33:00 018 11:26:00 DIS Emergency VICENTE COREA APRN [facility] ER COUGH/HURTS TO BREATH [id number] 02/18/2017 09:06:00 017 11:04:00 DIS Emergency LISA COWART, ALBERT Horne [facility] ER ABD PAIN,BACK P AIN [id number] 02/09/2017 18:26:00 017 19:43:00 DIS Emergency VICENTE COREA APRN [facility] ER PELVIC AREA ISSUES [id number] 04/04/2016 18:41:00 016 20:32:00 DIS Emergency ANGEL AGUERO [facility] ER TONGUE SWELLING;TROUBL E BREATHING [id number] 02/07/2016 17:50:00 016 21:21:00 DIS Emergency ANGEL AGUERO [facility] ER R SIDE PAIN [id number] 07/06/2014 06:08:00 015 11:05:00 DIS Inpatient DAYANARA VILLAGOMEZ MD [facility] LDRP INDUCTION [id number] 02/12/2014 13:30:00 014 23:59:59 CLS Outpatient DAYANARA VILLAGOMEZ MD [facility] RAD SUVEY [id number] 01/06/2014 11:11:00 014 23:59:59 CLS Outpatient DAYANARA VILLAGOMEZ MD [facility] RAD DATING [id number] 12/12/2013 14:15:00 014 15:10:00 DIS Emergency VICENTE COREA APRN [facility] ER DENTAL PAIN [id number] 04/04/2011 19:20:00 Document Registration [id number] 01/27/2011 22:34:00 Document Registration [id number] 01/21/2011 23:53:00 Document Registration [id number] 11/28/2010 12:53:00 Document Registration [id number] 10/03/2010 15:00:00 Document Registration [id number] 10/21/2018 16:00:00 10/21/2018 23:59: 59 CLS Outpatient [facility]
--- OUTSIDE RECORDS SUMMARY | 2019-12-06 05:00 | XMS REPORT ---
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 Gauge Operator Name Role Phone ELIA SHER Unavailable PROBLEMS Type Condition ICD9-CM Code [id number] Code Onset Dates Condition S tatus SNOMED Code Problem Other chronic pain G89.29 Active 8 9143151 Problem Mood disorder F39 Active 782771 05 Problem Anxiety F41.9 Active 78731648 ALLERGIES No Known Allergies ENCOUNTERS Encounter Location Date Diagnosis [address] [id number] Apr, Unprotected sex Z72.51 and Mood disorder F39 [address] [id number] 57 Apr, Acute non-recurrent maxillary sinusitis J01.00 ; Anxiety F41.9 ; Unprotected sex Z72.51 and Screen for STD (sexually transmitted disease) Z11.3 [place] [address] [place], [place] [id number] 57 Apr, Mood disorder F39 [facility] [address] [facility] [id number] [address] [place] [phone] Jan, Rash R21 ; Anxiety F41.9 and Vagina, candidiasis B37.[address] [id number] 57 October, Mood disorder F39 ; Pain in left shoulder M25.512 and Other chronic pain G89.29 [facility] [address] [id number] [address] [place] [phone] October, Anxiety F41.9 [place] [address] [place], [place] [id number] 57 October, Pharyngitis due to other organism J02.8 [facility] [address] [facility] [id number] [address] [place] [phone] October, Anxiety F41.9 [facility] [address] [facility] [id number] [address] [place] [phone] Nov, Lower abdominal pain R10.30 ; Acute cystitis without hematuria N30.00 and Acute seasonal allergic rhinitis, unspecified trigger J30.[address] [facility] [address] [facility] [id number] [address] [place] [phone] October, [facility] [address] [facility] [id number] [address] [place] [phone] Sep, Vaginal discharge N89.8 and Candidiasis of female genitalia B37.3 [place] [address] [facility] [id number] [address] [place] [phone] Sep, Acute frontal sinusitis, rec urrence not specified J01.10 [place] [address] [facility] [id number] [address] [place] [phone] Aug, [facility] [address] [facility] [id number] [address] [place] [phone] 10 Jul, 2010 IMMUNIZATIONS No Known Immunizations SOCIAL HISTORY Never Assessed REASON FOR VISIT long-term PLAN OF CARE VITAL SIGNS Height 66.25 in 2018-05-13 Weight 125 lbs 2018-05-13 Heart Rate 80 bpm 2018-05-13 Respiratory Rate 18 2018-05-13 BMI 20.02 kg/m2 2018-05-13 Blood pressure systolic 102 mmHg 2018-05-13 Blood pressure diastolic 60 mmHg 2018-05-13 MEDICATIONS Medication Instructions Dosage Frequency Start Date End Date Duration S tatus Prazosin HCl 1 MG Orally Once a day 1 capsule at bedtime 24h Apr, 30 day(s) Active Amoxicillin 500 MG Orally 3 times a day 1 capsule 8h Apr, 14 days Active HydrOXYzine Pamoate 50 MG Orally at bedtime 1 capsule as needed Apr, 30 day(s) Active RESULTS No Results PROCEDURES No Known procedures INSTRUCTIONS MEDICATIONS ADMINISTERED No Known Medications MEDICAL (GENERAL) HISTORY Type Description Date Medical History anxiety Medical History depression
--- OUTSIDE RECORDS SUMMARY | 2019-12-06 05:00 | XMS REPORT ---
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 Name Role Phone ELIA SHER Unavailable PROBLEMS Type Condition ICD9-CM Code [id number] Code Onset Dates Condition S tatus SNOMED Code Problem Other chronic pain G89.29 Active 8 8362308 Problem Mood disorder F39 Active 637501 05 Problem Anxiety F41.9 Active 93626231 ALLERGIES No Known Allergies ENCOUNTERS Encounter Location Date Diagnosis [place] [id number] [facility] [id number] [address] [place] [phone] Jan, Rash R21 ; Anxiety F41.9 and Vagina, candidiasis B37.3 [place] [address] [place], [place] [id number] 57 October, Mood disorder F39 ; Pain in left shoulder M25.512 and Other chronic pain G89.29 [facility] [address] [facility] [id number] [address] [place] [address] October, Anxiety F41.9 [place] [address] [place], [place] [id number] 57 October, Pharyngitis due to other organism J02.8 [facility] [address] [facility] [id number] [address] [place] [phone] October, Anxiety F41.9 [facility] [address] [facility] [id number] [address] [place] [phone] Nov, Lower abdominal pain R10.30 ; Acute cystitis without hematuria N30.00 and Acute seasonal allergic rhinitis, unspecified trigger J30.2 [facility] [address] [facility] [id number] [address] [place] [phone] October, [facility] [address] [facility] [id number] [address] [place] [phone] Sep, Vaginal discharge N89.8 and Candidiasis of female genitalia B37.3 [place] [address] [facility] [id number] [address] [place] [phone] Sep, Acute frontal sinusitis, rec urrence not specified J01.10 [place] [address] [facility] [id number] [address] [place] [phone] Aug, [place] [address] [facility] [id number] [address] [place] [phone] 10 Jul, 2010 IMMUNIZATIONS No Known Immunizations SOCIAL HISTORY Never Assessed REASON FOR VISIT depression-MISTY gutierres, wants to know if she can get a pap done today PLAN OF CARE Activity Details Follow Up 4 Weeks Reason:anxiety VITAL SIGNS Height 66.25 in 2018-01-30 Weight 124.6 lbs 2018-01-30 Temperature 98.1 degrees Fahrenheit 2018-01-30 Heart Rate 89 bpm 2018-01-30 Respiratory Rate 16 2018-01-30 BMI 19.96 kg/m2 2018-01-30 Blood pressure systolic 110 mmHg 2018-01-30 Blood pressure diastolic 80 mmHg 2018-01-30 MEDICATIONS Medication Instructions Dosage Frequency Start Date End Date Duration S tatus Zoloft 100 mg Orally Once a day 1 tablet 24h Active Neurontin 300 MG Orally Three times a day 1 capsule 8h Jan, 30 day(s) Active Diflucan 150 MG Orally Once a day 1 tablet 24h Jan, Jan, 03 days Active Cetirizine HCl 10 mg Orally Once a day 1 tablet 24h Jan, 8 Jun, 30 day(s) Active Triamcinolone Acetonide 0.1 % Externally Twice a day 1 appli cation to affected area 12h Jan, Active RESULTS No Results PROCEDURES No Known procedures INSTRUCTIONS MEDICATIONS ADMINISTERED No Known Medications MEDICAL (GENERAL) HISTORY Type Description Date Medical History anxiety Medical History depression
--- OUTSIDE RECORDS SUMMARY | 2019-12-06 05:00 | XMS REPORT ---
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 Name Role Phone ELIA SHRE Unavailable PROBLEMS Type Condition ICD9-CM Code [id number] Code Onset Dates Condition S tatus SNOMED Code Problem Other chronic pain G89.29 Active 8 5983997 Problem Mood disorder F39 Active 716471 05 Problem Anxiety F41.9 Active 03803760 ALLERGIES No Known Allergies ENCOUNTERS Encounter Location Date Diagnosis [address] [id number] Apr, Unprotected sex Z72.51 and Mood disorder F39 [address] [id number] 57 Apr, Acute non-recurrent maxillary sinusitis J01.00 ; Anxiety F41.9 ; Unprotected sex Z72.51 and Screen for STD (sexually transmitted disease) Z11.3 [place] [address] [place], [place] [id number] 57 Apr, Mood disorder F39 [facility] [place] [address] [facility] [id number] [address] [place] [phone] Jan, Rash R21 ; Anxiety F41.9 and Vagina, candidiasis B37.[address] [id number] 57 October, Mood disorder F39 ; Pain in left shoulder M25.512 and Other chronic pain G89.29 [facility] [place] [address] [id number] [address] [place] [phone] October, Anxiety F41.9 [place] [address] [place], [place] [id number] 57 October, Pharyngitis due to other organism J02.8 [facility] [place] [address] [facility] [id number] [address] [place] [phone] October, Anxiety F41.9 [facility] [address] [facility] [id number] [address] [place] [phone] Nov, Lower abdominal pain R10.30 ; Acute cystitis without hematuria N30.00 and Acute seasonal allergic rhinitis, unspecified trigger J30.2 [facility] [address] [facility] [id number] [address] [place] [phone] October, [facility] [address] [facility] [id number] [address] [place] [phone] Sep, Vaginal discharge N89.8 and Candidiasis of female genitalia B37.3 [place] [address] [facility] [id number] [address] [place] [phone] Sep, Acute frontal sinusitis, rec urrence not specified J01.10 [place] [address] [facility] [id number] [address] [place] [phone] Aug, [facility] [place] [address] [facility] [id number] [address] [place] [phone] 10 Jul, 2010 IMMUNIZATIONS No Known Immunizations SOCIAL HISTORY Never Assessed REASON FOR VISIT shelter PLAN OF CARE Activity Details Pending Test GC/CHLAM URINE (STATE) Pending Test HEP C ANTIBODY (STATE) Pending Test SYPHILIS (STATE) Pending Test HIV (STATE) Pending Test HEP B SURFACE ANTIGEN (STATE ) Future/Pending Procedure ROUTINE VENIPUNCTURE VITAL SIGNS Height 66.25 in 2018-05-06 Weight 123 lbs 2018-05-06 Heart Rate 88 bpm 2018-05-06 Respiratory Rate 18 2018-05-06 BMI 19.7 kg/m2 2018-05-06 Blood pressure systolic 118 mmHg 2018-05-06 Blood pressure diastolic 68 mmHg 2018-05-06 MEDICATIONS Medication Instructions Dosage Frequency Start Date End Date Duration S tatus Amoxicillin 500 MG Orally 3 times a day 1 capsule 8h Apr, 14 days Active HydrOXYzine Pamoate 50 MG Orally at bedtime 1 capsule as needed Apr, 30 day(s) Active RESULTS No Results PROCEDURES Procedure Date Ordered Result Body Site VENIPUNCT, ROUTINE* May 06, 2018 No Charge May 06, 2018 INSTRUCTIONS MEDICATIONS ADMINISTERED No Known Medications MEDICAL (GENERAL) HISTORY Type Description Date Medical History anxiety Medical History depression
--- OUTSIDE RECORDS SUMMARY | 2019-12-06 05:00 | XMS REPORT ---
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 Name Role Phone ELIA SHER Unavailable PROBLEMS Type Condition ICD9-CM Code RMU87-TU Code Onset Dates Condition S tatus SNOMED Code Problem Other chronic pain G89.29 Active 8 6603045 Problem Mood disorder F39 Active 298518 05 Problem Anxiety F41.9 Active 44412457 ALLERGIES No Known Allergies ENCOUNTERS Encounter Location Date Diagnosis [address] [id number] Apr, Mood disorder F39 [place] [address] [place] [id number] [address] [place] [phone] Jan, Rash R21 ; Anxiety F41.9 and Vagina, candidiasis B37.[address] [id number] 57 October, Mood disorder F39 ; Pain in left shoulder M25.512 and Other chronic pain G89.29 [facility] [address] [place] [id number] [address] [place] [phone] October, Anxiety F41.9 [place] [address] [place], [place] [id number] 57 October, Pharyngitis due to other organism J02.8 [facility] [address] [facility] [id number] [address] [place] [phone] October, Anxiety F41.9 [facility] [address] [facility] [id number] [address] [place] [phone] Nov, Lower abdominal pain R10.30 ; Acute cystitis without hematuria N30.00 and Acute seasonal allergic rhinitis, unspecified trigger J30.2 [facility] [address] [facility] [id number] [address] [place] [phone] October, [facility] [address] [facility] [id number] [address] [place] [phone] Sep, Vaginal discharge N89.8 and Candidiasis of female genitalia B37.3 [facility] [address] [facility] [id number] [address] [place] [address] Sep, Acute frontal sinusitis, rec urrence not specified J01.10 [facility] [address] [facility] [id number] [address] [place] [phone] Aug, [facility] [address] [facility] [id number] [address] [place] [phone] Jul, IMMUNIZATIONS No Known Immunizations SOCIAL HISTORY Never Assessed REASON FOR VISIT [facility] PLAN OF CARE VITAL SIGNS Height 66.25 in 2018-04-29 Weight 120 lbs 2018-04-29 Heart Rate 82 bpm 2018-04-29 Respiratory Rate 18 2018-04-29 BMI 19.22 kg/m2 2018-04-29 Blood pressure systolic 98 mmHg 2018-04-29 Blood pressure diastolic 54 mmHg 2018-04-29 MEDICATIONS Medication Instructions Dosage Frequency Start Date End Date Duration S tatus Zoloft 100 mg Orally Once a day 1 tablet 24h Active Risperdal 1 MG Orally 2 times a day 1 tablet 12h 13 Apr, 2018 30 day(s) Active RESULTS No Results PROCEDURES No Known procedures INSTRUCTIONS MEDICATIONS ADMINISTERED No Known Medications MEDICAL (GENERAL) HISTORY Type Description Date Medical History anxiety Medical History depression
--- NOTE | 2019-12-06 05:43 | ED Lower Extremity ---
General Chief Complaint: Lower Extremity Stated Complaint: R FOOT PAIN Nursing Triage Note: pt reports she tripped over a basketball a few hours ago et c/o left ankle pain et swelling. Nursing Sepsis Screen: No Definite Risk Source: patient History of Present Illness Date Seen by Provider: Dec 06, 2019 Time Seen by Provider: 05:25 Initial Comments PT ARRIVES VIA POV FROM HOME STATES AROUND MIDNIGHT SHE WAS IN HER YARD AND TRIPPED OVER A BASKETBALL AND TWISTED HER RIGHT ANKLE NO OTHER INJURIES NO PRIOR INJURIES TO THIS ANKLE NO PARESTHESIAS OR MOTOR DEFICITS HAS NOT APPLIED ICE, NOR ELEVATED FOOT, NOR TAKEN ANYTHING FOR PAIN LMP--ENDED 2-3 DAYS AGO. NO CONTROL Allergies and Home Medications Allergies Coded Allergies: No Known Drug Allergies (Unverified , 04/04/11) Home Medications Amoxicillin/Potassium Clav 1 Each Tablet, 1 EACH PO BID Prescribed by: VICENTE COREA on 08/22/17 1045 Sertraline HCl 100 Mg Tablet, 100 MG PO DAILY, (Reported) Patient Home Medication List Home Medication List Reviewed: Yes Review of Systems Constitutional: no symptoms reported LMP: Nov 29, 2019 Control/STD Prophylaxis: None Musculoskeletal: see HPI Skin: no symptoms reported Psychiatric/Neurological: No Symptoms Reported Past Ketpbwp-Megnjh-Cqdgfn Hx Past Med/Social Hx: Reviewed and Corrections made Patient Social History Alcohol Use: Rarely Uses Number of Drinks Today: AA Alcohol Beverage of Choice: Beer Recreational Drug Use: Yes (POLYSUBSTANCE ABUSE--METH, OPIATES) Drug of Choice: POLYSUBSTANCE ABUSE--METH, OPIATES Smoking Status: Current Everyday Smoker (1 PPD) Type Used: Cigarettes Recent Foreign Travel: No Contact w/Someone Who Travel: No Recent Infectious Disease Expo: No Recent Hopitalizations: No Immunizations Up To Date Tetanus Booster (TDap): Unknown PED Vaccines UTD: No Seasonal Allergies Seasonal Allergies: No Past Medical History Surgeries: No Respiratory: Yes Pneumonia Cardiac: No Neurological: No Reproductive Disorders: No Female Reproductive Disorders: Denies Genitourinary: No Gastrointestinal: No Musculoskeletal: No Endocrine: No HEENT: No Cancer: No Psychosocial: Yes (POLYSUBSTANCE ABUSE) Anxiety, Depression Integumentary: No Blood Disorders: No Adverse Reaction/Blood Tranf: No Family Medical History Cardiovascular disease 19 MOTHER, Onset:39 (HEART ATTACK ) MAT GRANDPA, Onset:50's - 60 (HEART ATTACK) Dementia MAT GRANDMA, Onset:50's - 60 Diabetes mellitus MAT GRANDPA MAT GRANDMA Hypertension 19 FATHER, Onset:Unknown 19 MOTHER, Onset:Unknown Thyroid disease MAT GRANDMA, Onset:Unknown No Family History of: AIDS Abdominal aortic aneurysm [place]'s disease Alcoholism Alzheimer's disease Aphasia Arthritis Asthma Cancer of mouth Cataracts Colon cancer Completed stroke Congenital disease Congenital heart disease Coronary thrombosis Cystic fibrosis Deafness or hearing loss Drug abuse Dysphasia Fibrocystic disease of breast Gastroenteritis Glaucoma Headache disorder Hypercholesterolemia Kidney disease Myocardial infarction Neoplasm Osteoporosis Parkinson's disease Prostate cancer Psychosocial problem Respiratory disorder Seizure disorder Severe allergy Tuberculosis Visual disorder No Pertinent Family Hx Physical Exam Vital Signs Vital Signs - First Documented 12/06/19 05:07 Temp 36.5 Pulse 82 Resp 16 B/P (MAP) 119/90 (100) Pulse Ox 100 O2 Delivery Room Air Capillary Refill : Less Than 3 Seconds Height, Weight, BMI Height: 5'6.00" Weight: 120lbs. oz. 54.117725xv; 18.00 BMI Method:Stated General Appearance: no apparent distress, cachetic Hips: bilateral hip normal inspection Legs: bilateral leg normal inspection Knees: bilateral knee normal inspection Ankles: left ankle normal inspection; right ankle bone tenderness, right ankle limited range of motion, right ankle pain, right ankle soft tissue tenderness, right ankle swelling, right ankle other (LATERAL MALLEOLUS WITH MODERATE SWELLING AND TENDERNESS .) Feet: bilateral foot normal inspection Neurologic/Tendon: normal sensation, normal motor functions, normal tendon functions Neurologic/Psychiatric: ripper operator II-XII nml as tested, no motor/sensory deficits, alert, normal mood/affect, oriented x 3 Skin: normal color, warm/dry Procedures/Interventions Splinting and Joint Reduction : Darius wrap: Yes Immobilizers: Step Light Walker s/m/lg Progress/Results/Core Measures Results/Orders My Orders Orders - HERIBERTO BERGERONA K DO Ankle, Right, 3 Views (12/06/19 05:32) Darius Bandage (12/06/19 06:48) Steplite (12/06/19 06:48) Naproxen Tablet (Naprosyn Tablet) (12/06/19 07:00) Vital Signs/I&O 12/06/19 05:07 Temp 36.5 Pulse 82 Resp 16 B/P (MAP) 119/90 (100) Pulse Ox 100 O2 Delivery Room Air Blood Pressure Mean: 100 Progress Progress Note : Progress Note SLEPT EXTREMELY SOUNDLY FOR ENTIRE ER STAY, LAYING ON RIGHT SIDE AND DIRECTLY ON RIGHT ANKLE --TAKES MUCH VERBAL AND TACTILE STIMULI TO WAKE PT. Diagnostic Imaging Comments XRAYS RIGHT ANKLE--SOFT TISSUE SWELLING, NO ACUTE BONY INJURY, PENDING RADIOLOGIST REVIEW Reviewed: Reviewed by Me Departure Impression Primary Impression: Right ankle sprain Disposition: HOME, SELF-CARE Condition: Stable Departure-Patient Inst. Referrals: [facility] (PCP) Primary Care Physician ELIA SHER (Family) Primary Care Physician Patient Instructions: Ankle Sprain (DC) Add. Discharge Instructions: ICE TO AREA AT 20 MINUTE INTERVALS ELEVATE FOOT MUCH POSSIBLE DARIUS WRAP AND WALKING BOOT FOR COMFORT FOLLOW UP WITH YOUR DR IN 1 WEEK IF NO BETTER All discharge instructions reviewed with patient and/or family. Voiced understanding. Scripts Naproxen (Naprosyn) 500 Mg Tablet 500 MG PO BID, #20 TAB 0 Refills Prov: JOHNSON BERGERON DO 12/06/19 JOHNSON BERGERON DO Dec 06, 2019 05:43
[2019-12-06] MEDS ORDERED: NAPR-1071 PO (06:53)
[2019-12-06] MEDS ORDERED: NAPROXEN 250 MG (NAPROSYN) TABLET PO ONE (07:00)
[2019-12-06 07:07] VITALS: BP 119/90
--- NOTE | 2019-12-06 07:08 | Diagnostic Imaging Report ---
HISTORY: Fall with right ankle pain and swelling TECHNIQUE: 3 views of the right ankle COMPARISON: None FINDINGS: No acute fracture or dislocation is seen in the right ankle. Alignment appears normal. Ankle mortise is symmetric and the talar dome appears intact. There is moderate lateral soft tissue swelling. No significant joint effusion is seen. A sclerotic focus in the distal right tibia likely represents a bone island. IMPRESSION: 1. Moderate soft tissue swelling lateral to the right ankle with no acute fracture seen. Dictated by: Dictated on workstation # [id number]
== END 2019-12-06 07:08 | disposition home or self-care (01) ==
LOC: EDUNIT# 04:53 → ER 04:55
DX: S93.401A Sprain of unspecified ligament of right ankle, initial encounter (principal); F17.210 Nicotine dependence, cigarettes, uncomplicated; F41.9 Anxiety disorder, unspecified; F32.9 Major depressive disorder, single episode, unspecified; Z82.49 Family history of ischemic heart disease and other diseases of the circulatory system; W18.41XA Slipping, tripping and stumbling without falling due to stepping on object, initial encounter; X50.1XXA Overexertion from prolonged static or awkward postures, initial encounter; Y92.017 Garden or yard in single-family (private) house as the place of occurrence of the external cause
CPT/HCPCS: 73610

== ENCOUNTER 2020-01-29 22:26 | Emergency (ER) | payer SELFPAY ==
[~2020-01-29] VITALS: Ht 167.7 cm; Wt 52.2 kg
--- OUTSIDE RECORDS SUMMARY | 2020-01-29 22:32 | XMS REPORT ---
Author Author [employer] [email or web address] [facility] [employer] [facility] Address [address] [address] Care Team Providers Care Hand Upper And Bottom Lacer Name Role Phone NO, LOCAL PHYSICIAN Unavailable Unavailable DAYANARA VILLAGOMEZ Unavailable NO, LOCAL PHYSICIAN Unavailable Unavailable JOANA GIPSON Unavailable ELIA SHER Unavailable ELIA SHER Unavailable ELIA SHER Unavailable ELIA SHER Unavailable ELIA SHER Unavailable ELIA SHER Unavailable ELIA SHER Unavailable ELIA SHER Unavailable ELIA SHER Unavailable PCP, NONE Unavailable Unavailable SHAI ASTUDILLO Unavailable Unavailable TAYLOR, JOHNSON Unavailable Unavailable TAYLOR, JOHNSON Unavailable Unavailable [facility] PCP [phone] Unavailable Unavailable Unavailable Unavailable Unavailable Unavailable Allergies Allergy Reported Allergen(s) Allergy Type Date of Reaction(s) Care Facility Classificati Onset Provider on Unclassified No Known Drug Allergies DA 04-04-2011 VICENTE COREA Not (23 sources) Available ([id number]) Unclassified NO KNOWN DRUG ALLERGIES UNKNOWN SHAI Not (1 source) BAUDILIO Available ([id number]) Encounters Encounter Date Encounter Type Encounter Diagnosis Care Provider Facility Start: Emergency department [facility] As [facility] 12-06-2019 patient visit Work Phone: [facility] End: 12-06-2019 Start: Patient encounter NONE PCP [facility] 10-21-2018 procedure [facility] ([id number]) Start: Patient encounter NONE PCP [facility] 07-17-2018 procedure [facility] ([id number]) Start: (ACUTE) Acute Visit Other allergic ELIA Flores [facility] 05-20-2018 rhinitis [facility] Start: (ACUTE) Acute Visit High risk ELIA Goldberg [facility] 05-13-2018 heterosexual behavior [facility] Start: Patient encounter NONE PCP [facility] 05-13-2018 procedure [facility] ([id number]) Start: (ACUTE) Acute Visit Acute maxillary ELIA Quigley [facility] 05-06-2018 sinusitis, [facility]rections unspecified Start: Patient encounter NA NA [facility] 05-06-2018 procedure [facility] ([id number]) Start: (ACUTE) Acute [facility]ive[facility] disorder [facility] Start: Emergency department JOHNSON BERGERON DO Not Avai lable ([id number]) 02-26-2018 patient visit End: 02-26-2018 Start: Patient encounter 02-26-2018 Start: Patient encounter NONE PCP [facility] 01-30-2018 [facility] ([id number]) NEGATED Patient encounter NONE PCP [facility] Start: [facility] 11-12-2017 [place] ([id number]) Start: Emergency department MARLYN HUMPHRIES MD N ot Available ([id number]) 08-27-2017 patient visit End: 08-27-2017 Start: Emergency department 08-22-2017 patient visit End: 08-22-2017 Start: Patient encounter VICENTE COREA Not Availab le ([id number]) 08-22-2017 Start: Emergency department ALBERT GONZALEZ MD Not Available ([id number]) 02-18-2017 patient visit End: 02-18-2017 Start: Patient encounter SHAI ASTUDILLO Not Availab le ([id number]) 07-23-2016 procedure End: 07-23-2016 Start: Patient encounter DAYANARA VILLAGOMEZ MD Not Availa ble ([id number]) 02-12-2014 Start: Patient encounter DAYANARA VILLAGOMEZ MD Not Availa ble ([id number]) 01-06-2014 Start: Emergency department VICENTE COREA Not Avai lable ([id number]) 12-12-2013 patient visit End: 12-12-2013 Medical Equipment The data below is from unstructured sourcesNo Medical Equipment Information available Goals Date Patient Goal Desired Activity/St ate Immunizations The data below is from unstructured sources Immunization Event Date Not Given Reason Dose Number Manager Location Lot Number Vaccine Information Statement (VIS) Deta il Interventions No Information Medications Current Medications Medication Drug Dates Sig Sig (Original) Class(es) (Normalized) cetirizine hydrochloride Histamine- Start: Cetir izine HCl 10 mg Orally Once a day 1 10 mg oral tablet 1 Receptor 01-30-2018 tablet 24h 1 6 Jan, 2018 Jun, 30 (1 source) Antagonist day(s) Active End: 06-29-2018 fluconazole 150 mg oral Azole Start: Difluc an 150 MG Orally Once a day 1 tablet Antifungal 01-30-2018 tablet 24h 16 A 2017Jan, 03 (1 source) days Active End: 02-02-2018 gabapentin 300 mg oral Anti-epile Start: Neuront in 300 MG Orally Three times a capsule ptic Agent 01-30-2018 day 1 capsule 8 h Jan, 30 day(s) (1 source) Active loratadine 10 mg oral Start: Loratadine 10 M G Orally Once a day 1 tablet 05-20-2018 tablet 24h May, 30 day(s) Active (1 source) prazosin 1 mg oral alpha-Adre Start: Prazosin HC l 1 MG Orally Once a day 1 capsule nergic 05-13-2018 capsule at bedt shama 24h Apr, 30 (1 source) Tatiana day(s) Active risperiDONE 2 mg oral Atypical Start: Risperda l 2 MG Orally 2 times a day 1 tablet Antipsycho 04-29-2018 tablet 12h 13 2017 30 day(s) Active (2 sources) tic Start: 04-29-2018 Risperdal 1 MG Orally 2 times a day 1 tablet 12h Apr, 30 day(s) Active triamcinolone acetonide Corticoste Start: Triamc inolone Acetonide 0.1 % Externally 1 mg/ml topical cream roid 01-30-2018 Twice a day 1 application to affected (1 source) area 12h Jan, Activ e Completed/Discontinued Medications Medication Drug Dates Sig Sig (Original) Class(es) (Normalized) acetaminophen 325 mg / Opioid Start: Hydroco done/Acetaminophen Discontinued 1 HYDROcodone bitartrate 5 Agonist 08-22-2017 ORAL Every 4HRS as needed for mg oral tablet Pain-Severe 10 August 22, 2017 10:45am (1 source) End: August 27, 2017 Do not fill unless 08-27-2017 Augmentin is also filled Payers Date Payer Normalized Payer Policy ID [facility] [employer] [facility] [id number] Plan of Treatment Date Care Activity Detail Author Collection venous blood [facility] of venipuncture [facility] ([id number]) Patient Education Ankle Sprain (DC) [facility] ([id number]) Patient referral [facility] ([id number]) [facility] ([id number]) Problems Active Problems Problem Problem Date Last Documented Episodic/Chr Provider Classificati Recorded Date onic on Chronic Bronchitis, not specified as acute Episodic ALBERT obstructive or chronic ; Translations: LISA COWART pulmonary [Bronchitis] disease and bronchiectas is (6 sources) Immunization Encounter for screening for Episodic ELIA SHER s and infections with a predomina ntly screening sexual mode of transmission ; for Translations: [ - Screen fo r STD infectious (sexually transmitted disea se) disease Z11.3] (3 sources) Other lower Personal history of pneumonia Episodic JOHNSON RUBIO DO respiratory (recurrent) disease (3 sources) Other lower Pleuritic pain Episodic [facility] respiratory [facility] disease Work Phone: (1 source) [phone] Other upper Other allergic rhinitis ; Chronic GUTIERREZ SHER respiratory Translations: [ - Seasonal allergic disease rhinitis due to other aller gic (1 source) trigger J30.89] Other upper Seasonal allergic rhinitis ; Chronic ELIA SHER respiratory Translations: [Seasonal all ergic disease rhinitis due to other aller gic (1 source) trigger] Pneumonia Lobar pneumonia, unspecified Episodic [facility]ITY (except that organism ; Translations: [Left CENT [facility] caused by lower zone pneumonia] Work Phone: tuberculosis [phone] or sexually 73 transmitted disease) (6 sources) Residual High risk heterosexual behavior ; Episodic ELIA SHER codes; Translations: [ - Unprotect ed sex unclassified Z72.51] (6 sources) Sprains and Sprain of ribs, initial encounter ; Episodic ANGEL strains Translations: [Sprain of ankle] BRIAN BOWSER (7 sources) Unclassified Family history of ischemic heart Episodic VICENTE COREA (18 sources) disease and other diseases of the circulatory system Past or Other Problems Problem Problem Date Last Documented Episodic/Chr Provider Classificati Recorded Date onic on Diseases of Other diseases of tongue Episodic GRE TCHEN mouth; YOGESH BOWSER excluding dental (5 sources) Disorders of Dental caries, unspecified Episodic P ETER COREA teeth and jaw (6 sources) External Other exposure to forces of nature, ANGEL Injury - initial encounter YOGESH BOWSER Natural / Environment (6 sources) External Other external cause status GRETCHE N Injury - YOGESH BOWSER Unspecified (6 sources) Mood Major depressive disorder, single T IMOTHY disorders episode, unspecified LISA COWART (12 sources) Normal Outcome of delivery, single Episodic DAYANARA VILLAGOMEZ liveborn MD and/or delivery (5 sources) OB-related Other specified trauma to perineum Episodic DAYANARA DAHLIA trauma to and vulva, delivered, with or MD perineum and without mention of antepart um vulva condition (5 sources) Other Angioneurotic edema, initial Episodic ANGEL injuries and encounter YOGESH BOWSER conditions due to external causes (5 sources) Other lower Cough Episodic respiratory disease (3 sources) Other lower Pleurodynia Episodic MARLYN respiratory BRUEGGEMANN disease (1 source) Spondylosis; Pain in thoracic spine Episodic TIMOT HY intervertebr LISA COWART al disc disorders; other back problems (5 sources) Unclassified Encounter for anatomic survey Episodic DAYANARA VILLAGOMEZ (11 sources) MD Procedures Date Procedure Procedure Detail Performing Cl inician Start: X-ray of right [facility] 12-06-2019 ankle Work Phone: Start: Collection venous ELIA SHER 05-06-2018 blood venipuncture Start: No Charge ELIA SHER 05-06-2018 Medical induction DAYANARA VILLAGOMEZ MD of labor Repair of other DAYANARA VILLAGOMEZ MD current obstetric laceration Results Test Name Value Interpreta Reference Facilit Date tion Range y Time other on 2018-05-13 Exp date Negative Invalid Communi Interpreta ty tion Code [facility] ([id number]) imm/path on 2016-10-08 Bacteria identified Note Invalid Not Aer cx Nom (Genital Interpreta Availab 017 specimen) tion Code le 11:32-0 (76006) 400 Social History Date Type Detail Facility Start: Tobacco smoking status ILIS Smokes tobacco allison ly [facility] 12-06-2019 (finding) [facility] ([id number]) Start: Current Everyday Smoker [facility] 12-06-2019 [facility] ([id number]) Start: POLYSUBSTANCE ABUSE--METH, [facility] 12-06-2019 OPIATES [facility] ([id number]) Start: Cigarettes [facility] 12-06-2019 [facility] ([id number]) Start: Denies Use [facility] 07-06-2014 [facility] ([id number]) Start: No [facility] 12-12-2013 [facility] ([id number]) Start: Denies [facility] 12-12-2013 Hospital ([id number]) Start: Sex Assigned At Female [facility] 1990 [facility] ([id number]) Vital Signs Date Time Vital Sign Value Performing Clinician Facil ity 05-20-2018 BMI (Body Mass 20.18 kg/m2 [facility] 09:40-0500 Index) [facility] ([id number]) 05-20-2018 Height 168.28 cm [facility] 09:40-0500 [facility] ([id number]) 05-20-2018 Weight 57.15 kg [facility] 09:40-0500 [facility] ([id number]) 05-13-2018 BMI (Body Mass 20.02 kg/m2 [facility] 10:00-0500 Index) [facility] ([id number]) 05-13-2018 Height 168.28 cm [facility] 10:00-0500 [facility] ([id number]) 05-13-2018 Weight 56.7 kg [facility] 10:00-0500 [facility] ([id number]) 05-06-2018 BMI (Body Mass 19.7 kg/m2 [facility] 10:00-0500 Index) [facility] ([id number]) 05-06-2018 Height 168.28 cm [facility] 10:00-0500 [facility] ([id number]) 05-06-2018 Weight 55.79 kg [facility] 10:00-0500 [facility] ([id number]) 04-29-2018 BMI (Body Mass 19.22 kg/m2 [facility] 10:40-0500 Index) [facility] ([id number]) 04-29-2018 Height 168.28 cm [facility] 10:40-0500 [facility] ([id number]) 04-29-2018 Weight 54.43 kg [facility] 10:40-0500 [facility] ([id number]) 01-30-2018 BMI (Body Mass 19.96 kg/m2 [facility] 12:40-0400 Index) [facility] ([id number]) 01-30-2018 Body Temperature 98.1 [degF] ELIA [facility] 12:40-0400 [facility] ([id number]) 01-30-2018 Height 168.28 cm [facility] 12:40-0400 [facility] ([id number]) 01-30-2018 Weight 56.52 kg [facility] 12:40-0400 [facility] ([id number]) Functional Status The data below is from unstructured sources Query Response Date Christopher rded Patient Orientation Person Place Time Situation Normal For Age July 08, 2014 11:55am No Functional Status information available Mental Status The data below is from unstructured sourcesNo Mental Status Information Available Evaluation note Note Date & Note Facility Type Evaluation No Assessments Information Available [facility] [place] ([id number]) Advance Directives Directive Response Recor ded Date/Time Advance Directives No 6:01pm Health Care Power of Grit Blaster No 02/07/16 6:01pm Organ Donor Yes 02/07/16 6:01pm Resuscitation Status Full Code 02/07/16 6:01pm Directive Response Recor ded Date/Time Advance Directives No 6:50pm Health Care Power of Grit Blaster No 04/04/16 6:50pm Organ Donor Yes 04/04/16 6:50pm Resuscitation Status Full Code 04/04/16 6:50pm Directive Response Recor ded Date/Time Advance Directives No 6:39am Health Care Power of Grit Blaster No 07/06/14 6:39am Organ Donor Yes 07/06/14 6:39am Resuscitation Status Full Code 07/06/14 6:39am Directive Response Recor ded Date/Time Advance Directives No 6:30pm Health Care Power of Grit Blaster No 02/09/17 6:30pm Organ Donor Yes 02/09/17 6:30pm Resuscitation Status Full Code 02/09/17 6:30pm Advance Directive Response Recorded Date/Time Advance Directives No Kristan 2019 5:23am Health Care Power of Grit Blaster No December 06, 2019 5:23am Organ Donor Yes November 5:23am Resuscitation Status Full Code December 06, 2019 5:23am Discharge Instructions No hospital discharge instructions.No hospital discharge instructions.No hospital discharge instructions.No hospital discharge instruction information available. Chief Complaint and Reason for Visit Chief Complaint Lower Extremity Reason for Visit [id number] Additional Source Comments This clinical document has been generated using [employer] software that has been certified by the Office of the National Coordinator for Health Information Technology (ONC 15.99.04.3023.Diam.31.00.0.247693) and the National Committee for Paving Contractor (NCQA, as an eMeasure certified technology). FOR [...] BASED ON T HE PRIMARY CLINICAL RECORDS. [employer] provides no warranty or guara ntee of [...] if she can get a pap done todayJosé Miguel whitman
--- OUTSIDE RECORDS SUMMARY | 2020-01-29 22:33 | XMS REPORT | Continuity of Care Document ---
Demographics Preferred Language Unknown Marital Status Unknown Hoahaoism Affiliation Unknown Race Unknown Ethnic Group Unknown Author Author [employer] Address Unknown Phone Unavailable Allergies Active Description Code Type Severity Reaction Onset Reported/Identified Relationship to Patient Clinical Status Yes NO KNOWN DRUG ALLERGIES NO KNOWN DRUG ALLERG UNKNOWN Yes No Known Drug Allergies [id number] Drug Allergy Unknown N/A 04/04/2011 Medications There is no data. Problems Date Dx Coded Attending Type Code Diagnosis Diagnosed By 01/22/2011 Ot 646.83 PRE G COMPL NEC- ANTEPART 01/22/2011 Ot 789.00 ABD OMINAL PAIN, UNSPECIFIED SITE 01/27/2011 Ot 655.73 DEC R MOVEMNT ANTEPARTUM CONDITION 04/06/2011 Ot 650 NORMAL DELIVERY 04/06/2011 Ot V27.0 DELI KELLY-SINGLE LIVEBORN 12/12/2013 VICENTE COREA GARAGEMAN Ot 521.00 UNSPEC DENTAL CARIES 07/05/2014 Ot 649.63 07/05/2014 Ot 649.63 07/05/2014 DAYANARA VILLAGOMEZ MD Ot V28. 81 07/05/2014 DAYANARA VILLAGOMEZ MD Ot V28. 81 07/08/2014 DAYANARA VILLAGOMEZ MD Ot 664. 81 OB PERINEAL TRAU NEC-DEL 07/08/2014 DAYANARA VILLAGOMEZ MD Ot V27. 0 DELIVER-SINGLE LIVEBORN 10/22/2014 Ot 649.63 10/22/2014 Ot 649.63 10/22/2014 DAYANARA VILLAGOMEZ MD Ot V28. 81 10/22/2014 DAYANARA VILLAGOMEZ MD Ot V28. 81 02/07/2016 Ot 649.63 [place] SIZE DATE DISCREPANCY, ANTEPARTU 02/07/2016 Ot 649.63 [place] RINE SIZE DATE DISCREPANCY, ANTEPARTU 02/07/2016 DAYANARA VILLAGOMEZ MD Ot V28. 81 ENCOUNTER FOR ANATOMIC SURVEY 02/07/2016 DAYANARA VILLAGOMEZ MD Ot V28. 81 ENCOUNTER FOR ANATOMIC SURVEY 02/07/2016 YOGESH PA, [...] INFECTION, UNSPECIFIED 02/09/2017 DAYANARA VILLAGOMEZ MD Ot V28. 81 ENCOUNTER [...] OTH DI 02/09/2017 DAYANARA VILLAGOMEZ MD Ot V28. 81 ENCOUNTER [...] DIS AND OTH DI 08/22/2017 DAYANARA VILLAGOMEZ MD, Ot V28. 81 ENCOUNTER FOR ANATOMIC SURVEY 08/22/2017 DAYANARA VILLAGOMEZ MD Ot V28. 81 ENCOUNTER FOR ANATOMIC SURVEY 08/26/2017 VICENTE COREA APRN Ot F17.210 NICOTINE DEPENDENCE, CIGARETTES, UNCOMPL 08/26/2017 VICENTE COREA APRN Ot F32 .9 MAJOR DEPRESSIVE DISORDER, SINGLE EPISOD 08/26/2017 VICENTE COREA APRN Ot J18 .1 LOBAR PNEUMONIA, UNSPECIFIED ORGANISM 08/26/2017 VICENTE COREA APRN Ot R05 COUGH 08/26/2017 VICENTE COREA GARAGEMAN Ot Z82.49 FAMILY HX OF ISCHEM HEART [...] DIS AND OTH DI 08/28/2017 VICENTE COREA GARAGEMAN Ot F17.210 NICOTINE DEPENDENCE, CIGARETTES, UNCOMPL 08/28/2017 VICENTE COREA GARAGEMAN Ot F32 .9 MAJOR DEPRESSIVE DISORDER, SINGLE EPISOD 08/28/2017 VICENTE COREA GARAGEMAN Ot J18 .1 LOBAR PNEUMONIA, UNSPECIFIED ORGANISM 08/28/2017 VICENTE COREA GARAGEMAN Ot R05 COUGH 08/28/2017 VICENTE COREA GARAGEMAN Ot Z82.49 FAMILY HX OF ISCHEM HEART DIS AND OTH DI 02/26/2018 RUBIO DO JOHNSON K Ot F15.10 OTHER STIMULANT ABUSE, UNCOMPLICATED 02/26/2018 RUBIO DO, JOHNSON K Ot F32.9 MAJOR DEPRESSIVE DISORDER, SINGLE EPISOD 02/26/2018 RUBIO DO, JOHNSON K Ot F41.9 ANXIETY DISORDER, UNSPECIFIED 02/26/2018 RUBIO DO, JOHNSON K Ot R07.89 OTHER CHEST PAIN 02/26/2018 RUBIO DO, JOHNSON K Ot Z82.49 FAMILY HX OF ISCHEM HEART DIS AND OTH DI 02/26/2018 RUBIO DO, JOHNSON K Ot Z87.01 PERSONAL HISTORY OF PNEUMONIA (RECURRENT 02/28/2018 RUBIO DO JOHNSON K Ot F15.10 OTHER STIMULANT ABUSE, UNCOMPLICATED 02/28/2018 [facility], JOHNSON Kincaid Ot F32.9 MAJOR DEPRESSIVE DISORDER, SINGLE EPISOD 02/28/2018 [facility], JOHNSON Kincaid Ot F41.9 ANXIETY DISORDER, UNSPECIFIED 02/28/2018 [facility], JOHNSON Kincaid Ot R07.89 OTHER CHEST PAIN 02/28/2018 [facility], JOHNSON Kincaid Ot Z82.49 FAMILY HX OF ISCHEM HEART DIS AND OTH DI 02/28/2018 [facility] JOHNSON Kincaid Ot Z87.01 PERSONAL HISTORY OF PNEUMONIA (RECURRENT 12/09/2019 [facility], JOHNSON Kincaid Ot F17.210 NICOTINE DEPENDENCE, CIGARETTES, UNCOMPL 12/09/2019 [facility], JOHNSON Kincaid Ot F32.9 MAJOR DEPRESSIVE DISORDER, SINGLE EPISOD 12/09/2019 [facility], JOHNSON Kincaid Ot F41.9 ANXIETY DISORDER, UNSPECIFIED 12/09/2019 [facility], JOHNSON Kincaid Ot M25.571 PAIN IN RIGHT ANKLE AND JOINTS OF RIGHT 12/09/2019 [facility], JOHNSON Kincaid Ot S93.401 A SPRAIN OF UNSPECIFIED LIGAMENT OF RIGHT 12/09/2019 [facility], JOHNSON Kincaid Ot W18.41X A SLIP/TRIP W/O FALLING DUE TO STEPPING ON 12/09/2019 [facility], JOHNSON Sanjiv Ot X50.1XX A OVEREXERTION FROM PROLONGED STATIC OR AW 12/09/2019 [facility], JONHSON Kincaid Ot Y92.017 GARDEN OR YARD IN SINGLE-FAMILY (PRIVATE 12/09/2019 [facility], JOHNSON Kincaid Ot Z82.49 FAMILY HX OF ISCHEM HEART DIS AND OTH DI Procedures Code Description Performed By Per boni On 96.49 04/04/2011 73.6 04/05/2011 73.4 MEDIC [...] plasma alkaline phosphatase delaney surement (enzymatic activity/volume) 89 U/L 40-136 Serum [...] 0.00-0.49 Urine drug screening test - 02/07/16 20: 09 Urine acetaminophen detection by screening [...] culture - 02/09/17 18:35 Bacterial urine culture [id number] NRG COLONY COUNT >100,000/ML NRG Microscopic examination [...] Status Pt. Type Provider Facility Loc./Unit Complaint [id number] 10/08/2016 10:06:00 Document Registration [id number] 07/23/2016 11:50:00 07/23/2016 13:07: 00 [id number] 12/06/2019 04:55:00 020 07:08:00 DIS Outpatient RUBIO JOHNSON V estefania [facility] ER R FOOT PAIN [id number] 02/26/2018 19:52:00 018 21:58:00 DIS Emergency JOHNSON BERGERON DO Sandie ayanna [facility] ER CP, SOB - NOT HAVING CU RRENTLY [id number] 08/27/2017 11:59:00 018 12:57:00 DIS Emergency YANDEL COWART, MARLYN Aj [facility] ER COUGH/CONGESTIO N RIB PAIN [id number] 08/22/2017 09:33:00 018 11:26:00 DIS Emergency VICENTE COREA APRN [facility] ER COUGH/HURTS TO BREATH [id number] 02/18/2017 09:06:00 017 11:04:00 DIS Emergency ALBERT GONZALEZ MD [facility] ER ABD PAIN,BACK P AIN [id number] 02/09/2017 18:26:00 017 19:43:00 DIS Emergency VICENTE COREA APRN [facility] ER PELVIC AREA ISSUES [id number] 04/04/2016 18:41:00 016 20:32:00 DIS Emergency ANGEL AGUERO [facility] ER TONGUE SWELLING;TROUBL E BREATHING [id number] 02/07/2016 17:50:00 016 21:21:00 DIS Emergency ANGEL AGUERO [facility] ER R SIDE PAIN [id number] 07/06/2014 06:08:00 015 11:05:00 DIS Inpatient DAYANARA VILLAGOMEZ MD [facility] LDRP INDUCTION [id number] 02/12/2014 13:30:00 014 23:59:59 CLS Outpatient DAYANARA VILLAGOMEZ MD [facility] RAD SUVEY [id number] 01/06/2014 11:11:00 014 23:59:59 CLS Outpatient DAYANARA VILLAGOMEZ MD [facility] RAD DATING [id number] 12/12/2013 14:15:00 014 15:10:00 DIS Emergency VICENTE COREA APRN [facility] ER DENTAL PAIN [id number] 01/29/2020 22:27:[address] Emergency YANDEL COWART, MARLYN Aj [facility] ER SOA/ FEVER/ SORE THROAT [id number] 04/04/2011 19:20:00 Document Registration [id number] 01/27/2011 22:34:00 Document Registration [id number] 01/21/2011 23:53:00 Document Registration [id number] 11/28/2010 12:53:00 Document Registration [id number] 10/03/2010 15:00:00 Document Registration [id number] 10/21/2018 16:00:00 10/21/2018 23:59: 59 CLS Outpatient XAVIER BOONE [facility]
[2020-01-30 01:15] LABS: BASOPHILS % (AUTO) 1 % (0-10); EOSINOPHILS # (AUTO) 0.1 10^3/uL (0.0-0.3); EOSINOPHILS % (AUTO) 1 % (0-10); HEMATOCRIT 40 % (35-52); HEMOGLOBIN 13.9 G/DL (11.5-16.0); LYMPHOCYTES # (AUTO) 2.3 X 10^3 (1.0-4.0); LYMPHOCYTES % (AUTO) 26 % (12-44); MEAN CORPUSCULAR HEMOGLOBIN 32 PG (25-34); MEAN CORPUSCULAR HGB CONC 34 G/DL (32-36); MEAN CORPUSCULAR VOLUME 94 FL (80-99); MEAN PLATELET VOLUME 9.9 FL (7.4-10.4); MONOCYTES # (AUTO) 0.7 X 10^3 (0.0-1.0); MONOCYTES % (AUTO) 8 % (0-12); NEUTROPHILS # (AUTO) 5.6 X 10^3 (1.8-7.8); NEUTROPHILS % (AUTO) 64 % (42-75); PLATELET COUNT 232 10^3/uL (130-400); RED CELL DISTRIBUTION WIDTH 12.9 % (10.0-14.5); WHITE BLOOD COUNT 8.7 10^3/uL (4.3-11.0)
[2020-01-30 01:26] LABS: ALBUMIN 4.2 GM/DL (3.2-4.5)
[2020-01-30 01:27] LABS: CHLORIDE 105 MMOL/L (98-107); POTASSIUM 3.6 MMOL/L (3.6-5.0); SODIUM 139 MMOL/L (135-145)
[2020-01-30 01:28] LABS: CALCIUM 8.7 MG/DL (8.5-10.1)
[2020-01-30 01:29] LABS: GLUCOSE 83 MG/DL (70-105); TOTAL PROTEIN 6.7 GM/DL (6.4-8.2)
[2020-01-30 01:30] LABS: CARBON DIOXIDE 25 MMOL/L (21-32)
[2020-01-30] MEDS ORDERED: KETOROLAC 30 MG/ML VIAL IVP ONE (01:30)
[2020-01-30 01:31] LABS: BILIRUBIN,TOTAL 0.3 MG/DL (0.1-1.0)
[2020-01-30 01:32] LABS: ALKALINE PHOSPHATASE 84 U/L (40-136)
[2020-01-30 01:33] LABS: GFR ESTIMATED > 60
[2020-01-30 01:34] LABS: BUN/CREATININE RATIO 18
[2020-01-30 01:36] LABS: ALANINE AMINOTRANSFERASE 8 U/L (0-55)
[2020-01-30 01:40] LABS: BILIRUBIN,URINE NEGATIVE (NEGATIVE); CLARITY,URINE SL CLOUDY; COLOR,URINE YELLOW; GLUCOSE, URINE (UA) NEGATIVE (NEGATIVE); KETONES,URINE NEGATIVE (NEGATIVE); LEUKOCYTE ESTERASE ,URINE 1+ (NEGATIVE); NITRITE,URINE NEGATIVE (NEGATIVE); PH,URINE 5.5 (5-9); PROTEIN,URINE NEGATIVE (NEGATIVE)
[2020-01-30 02:01] LABS: BACTERIA,URINE LARGE /HPF
[2020-01-30 02:06] LABS: AMPHETAMINE SCREEN, URINE POSITIVE (NEGATIVE); BARBITURATE SCREEN URINE NEGATIVE (NEGATIVE); BENZODIAZEPINES SCREEN URINE POSITIVE (NEGATIVE); CANNABINOID SCREEN, URINE NEGATIVE (NEGATIVE); COCAINE SCREEN URINE NEGATIVE (NEGATIVE); METHADONE STAT NEGATIVE (NEGATIVE); METHAMPHETAMINE SCREEN URINE S NEGATIVE (NEGATIVE); OPIATE SCREEN URINE NEGATIVE (NEGATIVE); OXYCODONE STAT NEGATIVE (NEGATIVE); PROPOXYPHENE STAT NEGATIVE (NEGATIVE); TRICYCLIC ANTIDEPRESSANTS SCRE NEGATIVE (NEGATIVE)
[2020-01-30] MEDS ORDERED: cefTRIAXone FOR IV USE 1,000 MG in WATER (STERILE) FOR INJECTION 10 ML IV ONE (02:15)
--- NOTE | 2020-01-30 02:33 | ED General ---
General Chief Complaint: Respiratory Problems Stated Complaint: SOA/ FEVER/ SORE THROAT Nursing Triage Note: PT AMBULATE TO ROOM 06 WITH C/O COUGH/SOB/SORE THROAT. Nursing Sepsis Screen: No Definite Risk Source of Information: Patient Exam Limitations: No Limitations History of Present Illness Date Seen by Provider: Jan 30, 2020 Time Seen by Provider: 00:45 Initial Comments This 30-year-old woman presents to the emergency room with numerous complaints including subjective fever, sore throat, lower abdominal discomfort, right-sided dental pain, mild cough. The complaints she is most concerned about is that earlier tonight she felt lightheaded and dizzy and her blood pressure was high. Vital signs are unremarkable at present. She has no known COVID-19 exposures. No recent travel. Patient admits to smoking methamphetamines. Allergies and Home Medications Allergies Coded Allergies: No Known Drug Allergies (Unverified , 04/04/11) Home Medications Amoxicillin/Potassium Clav 1 Each Tablet, 1 EACH PO BID Prescribed by: VICENTE COREA on 08/22/17 1045 Cephalexin 500 Mg Capsule, 500 MG PO TID Prescribed by: MARLYN COMBS on 01/30/20 0237 Naproxen 500 Mg Tablet, 500 MG PO BID Prescribed by: JOHNSON BERGERON on 12/06/19 0653 Sertraline HCl 100 Mg Tablet, 100 MG PO DAILY, (Reported) Patient Home Medication List Home Medication List Reviewed: Yes Review of Systems Review of Systems Constitutional: see HPI EENTM: see HPI Respiratory: see HPI Cardiovascular: no symptoms reported Gastrointestinal: see HPI Genitourinary: no symptoms reported : No Musculoskeletal: no symptoms reported Skin: no symptoms reported Psychiatric/Neurological: No Symptoms Reported Hematologic/Lymphatic: No Symptoms Reported Immunological/Allergic: no symptoms reported Past Koohiww-Olmigo-Fzqjud Hx Past Med/Social Hx: Reviewed Nursing Past Med/Soc Hx Patient Social History Alcohol Use: Regular Use Number of Drinks Today: AA Alcohol Beverage of Choice: Beer Recreational Drug Use: No Drug of Choice: POLYSUBSTANCE ABUSE--METH, OPIATES Smoking Status: Current Everyday Smoker Type Used: Cigarettes 2nd Hand Smoke Exposure: Yes Recent Foreign Travel: No Contact w/Someone Who Travel: No Recent Infectious Disease Expo: No Recent Hopitalizations: No Physical Abuse: No Sexual Abuse: No Mistreated: No Fear: No Immunizations Up To Date Tetanus Booster (TDap): Unknown PED Vaccines UTD: No Seasonal Allergies Seasonal Allergies: No Past Medical History Surgeries: No Respiratory: Yes Pneumonia Cardiac: No Neurological: No Reproductive Disorders: No Female Reproductive Disorders: Denies Genitourinary: No Gastrointestinal: No Musculoskeletal: No Endocrine: No HEENT: No Cancer: No Psychosocial: Yes (POLYSUBSTANCE ABUSE) Anxiety, Depression Integumentary: No Blood Disorders: No Adverse Reaction/Blood Tranf: No Family Medical History Cardiovascular disease 21 MOTHER, Onset:39 (HEART ATTACK ) MAT GRANDPA, Onset:50's - 60 (HEART ATTACK) Dementia MAT GRANDMA, Onset:50's - 60 Diabetes mellitus MAT GRANDPA MAT GRANDMA Hypertension 19 FATHER, Onset:Unknown 19 MOTHER, Onset:Unknown Thyroid disease MAT GRANDMA, Onset:Unknown No Family History of: AIDS Abdominal aortic aneurysm [place]'s disease Alcoholism Alzheimer's disease Aphasia Arthritis Asthma Cancer of mouth Cataracts Colon cancer Completed stroke Congenital disease Congenital heart disease Coronary thrombosis Cystic fibrosis Deafness or hearing loss Drug abuse Dysphasia Fibrocystic disease of breast Gastroenteritis Glaucoma Headache disorder Hypercholesterolemia Kidney disease Myocardial infarction Neoplasm Osteoporosis Parkinson's disease Prostate cancer Psychosocial problem Respiratory disorder Seizure disorder Severe allergy Tuberculosis Visual disorder No Pertinent Family Hx Physical Exam Vital Signs Vital Signs - First Documented 01/30/20 01/30/20 00:34 02:49 Temp 36.4 Pulse 95 Resp 17 B/P (MAP) 139/94 (109) Pulse Ox 99 O2 Delivery Room Air Capillary Refill : Less Than 3 Seconds Height, Weight, BMI Height: 5'6.00" Weight: 120lbs. oz. 54.057740xg; 18.00 BMI Method:Stated General Appearance: No Apparent Distress, Thin HEENT: PERRL/EOMI, TMs Normal, Pharynx Normal, Other (Significant dental decay on the right side with no overt abscess or inflammation) Neck: Normal Inspection Respiratory: No Accessory Muscle Use, No Respiratory Distress, Crackles (Few faint crackles in the right base) Cardiovascular: Regular Rate, Rhythm, No Edema, No Murmur Gastrointestinal: Normal Bowel Sounds, Non Tender, Soft Extremity: Normal Inspection, Non Tender, No Pedal Edema Neurologic/Psychiatric: Alert, Oriented x3, No Motor/Sensory Deficits, Normal Mood/Affect, talent development consultant II-XII Norm as Tested Skin: Normal Color, Warm/Dry Progress/Results/Core Measures Suspected Sepsis Recent Fever Within 48 Hours: No Infection Criteria Present: None New/Unexplained Altered Menta: No Sepsis Screen: No Definite Risk SIRS Temperature: Pulse: 95 Respiratory Rate: 17 Laboratory Tests 01/30/20 01:07: White Blood Count 8.7 Blood Pressure 139 /94 Mean: 109 Laboratory Tests 01/30/20 01:07: Creatinine 0.80, Platelet Count 232, Total Bilirubin 0.3 Results/Orders Lab Results Laboratory Tests Test 01/30/20 01:07 01/30/20 01:25 Range/Units White Blood Count 8.7 4.3-11.0 10^3/uL Red Blood Count 4.31 L 4.35-5.85 10^6/uL Hemoglobin 13.9 11.5-16.0 G/DL Hematocrit 40 35-52 % Mean Corpuscular Volume 94 80-99 FL Mean Corpuscular Hemoglobin 32 25-34 PG Mean Corpuscular Hemoglobin Concent 34 32-36 G/DL Red Cell Distribution Width 12.9 10.0-14.5 % Platelet Count 232 130-400 10^3/uL Mean Platelet Volume 9.9 7.4-10.4 FL Neutrophils (%) (Auto) 64 42-75 % Lymphocytes (%) (Auto) 26 12-44 % Monocytes (%) (Auto) 8 0-12 % Eosinophils (%) (Auto) 1 0-10 % Basophils (%) (Auto) 1 0-10 % Neutrophils # (Auto) 5.6 1.8-7.8 X 10^3 Lymphocytes # (Auto) 2.3 1.0-4.0 X 10^3 Monocytes # (Auto) 0.7 0.0-1.0 X 10^3 Eosinophils # (Auto) 0.1 0.0-0.3 10^3/uL Basophils # (Auto) 0.0 0.0-0.1 10^3/uL Sodium Level 139 135-145 MMOL/L Potassium Level 3.6 3.6-5.0 MMOL/L Chloride Level 105 98-107 MMOL/L Carbon Dioxide Level 25 21-32 MMOL/L Anion Gap 9 5-14 MMOL/L Blood Urea Nitrogen 14 7-18 MG/DL Creatinine 0.80 0.60-1.30 MG/DL Estimat Glomerular Filtration Rate > 60 BUN/Creatinine Ratio 18 Glucose Level 83 70-105 MG/DL Calcium Level 8.7 8.5-10.1 MG/DL Corrected Calcium 8.5 8.5-10.1 MG/DL Total Bilirubin 0.3 0.1-1.0 MG/DL Aspartate Amino Transf (AST/SGOT) 11 5-34 U/L Alanine Aminotransferase (ALT/SGPT) 8 0-55 U/L Alkaline Phosphatase 84 40-136 U/L C-Reactive Protein High Sensitivity 0.10 0.00-0.50 MG/DL Total Protein 6.7 6.4-8.2 GM/DL Albumin 4.2 3.2-4.5 GM/DL Serum Test, Qualitative NEGATIVE NEGATIVE Urine Color YELLOW Urine Clarity SL CLOUDY Urine pH 5.5 5-9 Urine Specific [place] >=1.030 1.016-1.022 Urine Protein NEGATIVE NEGATIVE Urine Glucose (UA) NEGATIVE NEGATIVE Urine Ketones NEGATIVE NEGATIVE Urine Nitrite NEGATIVE NEGATIVE Urine Bilirubin NEGATIVE NEGATIVE Urine Urobilinogen 0.2 < = 1.0 MG/DL Urine Leukocyte Esterase 1+ H NEGATIVE Urine RBC (Auto) NEGATIVE NEGATIVE Urine RBC NONE /HPF Urine WBC 10-25 H /HPF Urine Squamous Epithelial Cells 10-25 H /HPF Urine Crystals NONE /LPF Urine Bacteria LARGE H /HPF Urine Casts NONE /LPF Urine Mucus NEGATIVE /LPF Urine Culture Indicated YES Urine Opiates Screen NEGATIVE NEGATIVE Urine Oxycodone Screen NEGATIVE NEGATIVE Urine Methadone Screen NEGATIVE NEGATIVE Urine Propoxyphene Screen NEGATIVE NEGATIVE Urine Barbiturates Screen NEGATIVE NEGATIVE Ur Tricyclic Antidepressants Screen NEGATIVE NEGATIVE Urine Phencyclidine Screen NEGATIVE NEGATIVE Urine Amphetamines Screen POSITIVE H NEGATIVE Urine Methamphetamines Screen NEGATIVE NEGATIVE Urine Benzodiazepines Screen POSITIVE H NEGATIVE Urine Cocaine Screen NEGATIVE NEGATIVE Urine Cannabinoids Screen NEGATIVE NEGATIVE My Orders Orders - MARLYN HUMPHRIES MD Cbc With Automated Diff (01/30/20:52) Comprehensive Metabolic Panel (01/30/20:52) Hs C Reactive Protein (01/30/20:52) Ua Culture If Indicated (01/30/20:) Chest 1 View, Ap/Pa Only (01/30/20:52) Ed Iv/Invasive Line Start (01/30/20:52) Hcg,Qualitative Serum (01/30/20:52) Monitor-Rhythm Ecg Trace Only (01/30/20:) Drug Screen Stat (Urine) (8/15/20 00:52) Ketorolac Injection (Toradol Injection) (01/30/20 01:30) Urine Culture (01/30/20 01:25) Ceftriaxone For Iv Use (Rocephin For I (01/30/20 02:15) Medications Given in ED Vital Signs/I&O Capillary Refill : Less Than 3 Seconds Blood Pressure Mean: 109 Progress Note : Progress Note Patient was in normal sinus rhythm on the monitor. Urine demonstrated urinary tract infection. Chest x-ray was unremarkable. Rocephin was given for treatment of urinary tract infection, sore throat, and dental pain. Keflex was prescribed to follow. Diagnostic Imaging Diagonstic Imaging: Xray Plain Films/CT/US/NM/MRI: chest Comments Viewed by me. Report not yet available. No acute abnormalities appreciated. Departure Impression Primary Impression: Urinary tract infection Qualified Codes: N39.0 - Urinary tract infection, site not specified Additional Impressions: Acute sore throat Dental implant pain Qualified Codes: T85.848A - Pain due to other internal prosthetic devices, implants and grafts, initial encounter Disposition: HOME, SELF-CARE Condition: Improved Departure-Patient Inst. Referrals: [facility] [place] (PCP) Primary Care Physician ELIA SHER (Family) Primary Care Physician Patient Instructions: Urinary Tract Infections in Adults Add. Discharge Instructions: Drink plenty of clear liquids. For your discomfort you may take ibuprofen and/or Tylenol (acetaminophen). Complete your antibiotics as prescribed. Avoid contact with other people until your symptoms resolve. Avoid inhalation of the chemical irritants such as methamphetamines or cigarette smoke as these may be the cause of your sore throat. Follow-up with a dentist as soon as possible. All discharge instructions reviewed with patient and/or family. Voiced understanding. Scripts Cephalexin (Keflex) 500 Mg Capsule 500 MG PO TID, #20 CAP Prov: MARLYN HUMPHRIES MD 01/30/20 Copy Copies To 1: ROSSI SOLIZ JOSHUA T MD Jan 30, 2020 02:33
[2020-01-30] MEDS ORDERED: CEPH-507 PO (02:37)
[2020-01-30 02:49] VITALS: BP 124/71
--- NOTE | 2020-01-30 07:51 | Diagnostic Imaging Report ---
INDICATION: Fever, cough and congestion. TECHNIQUE: Single view chest 1:30 AM. CORRELATION STUDY: 02/26/2018 FINDINGS: The heart size, mediastinal configuration and pulmonary vascularity are within normal limits. The lungs are clear with no consolidating infiltrate. There is no significant effusion or pneumothorax. IMPRESSION: 1. Negative for acute abnormality of the chest. Dictated by: Dictated on workstation # [id number]
== END 2020-01-30 02:49 | disposition home or self-care (01) ==
LOC: EDUNIT# 22:26 → ER 22:27
DX: T85.848A Pain due to other internal prosthetic devices, implants and grafts, initial encounter (principal); N39.0 Urinary tract infection, site not specified; J02.9 Acute pharyngitis, unspecified; F41.9 Anxiety disorder, unspecified; F32.9 Major depressive disorder, single episode, unspecified; F17.210 Nicotine dependence, cigarettes, uncomplicated; Z82.49 Family history of ischemic heart disease and other diseases of the circulatory system
CPT/HCPCS: 36415; 71045; 80053; 80306; 81000; 84703; 85025; 86141; 87077; 87088; 87186; 93041

== ENCOUNTER 2021-04-27 06:00 | Inpatient (IN) | payer MEDICAID ==
[2021-04-27] VITALS (55 sets, daily range): BP systolic 72–157; BP diastolic 41–102
[~2021-04-27] VITALS: Ht 167.7 cm; Wt 73.3 kg
--- NOTE | 2021-04-27 06:28 | History & Physical-OB ---
OB - Chief Complaint & HPI Date/Time Date of Admission: Date of Admission: Apr 27, 2021 at 06:00 Date seen by a Provider: Apr 27, 2021 Time Seen by a Provider: 06:25 Chief Complaint/History OB-Reason for Admission/Chief: Induction of Labor Hx : 3 Hx Para: 2 Expected Date of Delivery: Apr 26, 2021 Gestational Age in Weeks: 40 Gestational Age in Days: 1 Admission Nurse Assessment Rev: Yes History of Labs GBS negative Allergies and Home Medications Allergies Coded Allergies: No Known Drug Allergies (Unverified , 04/04/11) Patient Home Medication List Home Medication List Reviewed: Yes Amoxicillin/Potassium Clav (Augmentin 875-125 Tablet) 1 Each Tablet, 1 EACH PO BID Prescribed by: VICENTE COREA on 08/22/17 1045 Cephalexin (Keflex) 500 Mg Capsule, 500 MG PO TID Prescribed by: MARLYN COMBS on 01/30/20 0237 Naproxen (Naprosyn) 500 Mg Tablet, 500 MG PO BID Prescribed by: JOHNSON BERGERON on 12/06/19 0653 Sertraline HCl (Zoloft) 100 Mg Tablet, 100 MG PO DAILY, (Reported) Entered as Reported by: BONNY MTZ on 02/18/17 0953 OB - History Hx of Present Care: Yes Ultrasounds: Normal mid trimester US Obstetrical Complications: None Medical Complications: None Obstetrical History Hx Termination: No Hx Multiple Gestation: No Hx Stillbirth: No Hx Complication: No Hx Induced Hypertens: No Hx Maternal Gestational Diabet: No Delivery History Hx Dystocia: No Hx Large For Gestational Age I: No Hx Small for Gestational Age I: No Hx Section: No Hx Vaginal Delivery Post C-Sec: No Hx Blood Disorders: No Adverse Rxn to Tranfusion: No Patient Past Medical History no chronic medical problems Social History/Family History 2nd Hand Smoke Exposure: Yes Immunizations Hepatitis A: No Hepatitis B: No Tetanus Booster (TDap): Unknown OB - Admission Exam Physical Exam HEENT: Moist Membranes Heart: Rhythm Normal Lungs: Clear Abdomen: Gravid Extremities: Normal Reflexes: Normal Cervical Dilatation: 2cm Effacement: 50% Station: -3 Membranes: Intact Heart Rate: 140's Accelerations: Accelerations Present Short Term Variability: Present Contractions on Admission: >10 Minutes Apart Intensity: Mild Barber Scoring Tool (Modified) Dilation (cm): 1-2cm (1) Effacement (%): 31-51% (1) Descent/Station: -3 (0) Cervix Consistency: Medium(1) Cervix Position: Middle/Mid-Position (1) Add 1 point for: Each previous vaginal delivery (1) Barber Score: 6 OB - Assessment/Plan/Diagnosis Assessment Assessment: induction of labor Admission Dx 1. IUP at term 40 weeks Admission Status: Inpatient Order (span 2 midnights) Reason for Inpatient Admission: Induction of labor Plan Plan: Induction Induction Method: AROM Other Plan -epidural planned -pitocin as needed DAYANARA VILLAGOMEZ MD Apr 27, 2021 06:28
[2021-04-27] MEDS ORDERED: OXYTOCIN PRE-MIX DRIP 500 ML IV SCH ×2 (06:30→16:15)
[2021-04-27] MEDS ORDERED: MINERAL OIL CONCENTRATE 99.9% 15 ML UDC TOP PRN (06:45)
[2021-04-27] MEDS ORDERED: D5 LR IV SOLUTION 1,000 ML IV SCH (06:45)
[2021-04-27 07:52] LABS: BASOPHILS # (AUTO) 0.1 10^3/uL (0.0-0.1); BASOPHILS % (AUTO) 0 % (0-10); EOSINOPHILS # (AUTO) 0.1 10^3/uL (0.0-0.3); EOSINOPHILS % (AUTO) 1 % (0-10); HEMATOCRIT 34 % (35-52); HEMOGLOBIN 11.2 g/dL (11.5-16.0); LYMPHOCYTES # (AUTO) 2.2 10^3/uL (1.0-4.0); LYMPHOCYTES % (AUTO) 17 % (12-44); MEAN CORPUSCULAR HEMOGLOBIN 31 pg (25-34); MEAN CORPUSCULAR HGB CONC 33 g/dL (32-36); MEAN CORPUSCULAR VOLUME 92 fL (80-99); MEAN PLATELET VOLUME 12.3 fL (9.0-12.2); MONOCYTES # (AUTO) 0.7 10^3/uL (0.0-1.0); MONOCYTES % (AUTO) 6 % (0-12); NEUTROPHILS % (AUTO) 76 % (42-75); PLATELET COUNT 181 10^3/uL (130-400); WHITE BLOOD COUNT 13.1 10^3/uL (4.3-11.0)
[2021-04-27] MEDS ORDERED: fentaNYL 2 mcg/ml BUPIVA 0.125 100 ML ONE (08:57)
[2021-04-27] MEDS ORDERED: NALOXONE 0.4 MG/ML 1 ML (NARCAN) VIAL IV PRN ×2 (09:00→16:15)
[2021-04-27] MEDS ORDERED: ONDANSETRON 4 MG/2 ML (SDV) Z0FRAN IV PRN (09:00)
[2021-04-27] MEDS ORDERED: diphenhydrAMINE 50 MG/ML INJ (BENADRYL) IV PRN (09:00)
[2021-04-27] MEDS ORDERED: LACTATED RINGERS 1,000 ML IV ONE (09:00)
[2021-04-27] MEDS ORDERED: fentaNYL 2 mcg/ml BUPIVA 0.125 100 ML IV SCH (09:00)
[2021-04-27] MEDS ORDERED: CATHETER FLUSH 10 ML SYR IV PRN (09:00)
[2021-04-27] MEDS ORDERED: LIDOCAINE PF 2% 5 ML (XYLOCAINE) VIAL ONE (09:03)
[2021-04-27] MEDS ORDERED: fentaNYL INJ 100 MCG/2 ML AMP ONE (09:03)
[2021-04-27 10:07] LABS: BILIRUBIN,URINE NEGATIVE (NEGATIVE); CLARITY,URINE CLOUDY; COLOR,URINE YELLOW; GLUCOSE, URINE (UA) NEGATIVE (NEGATIVE); KETONES,URINE NEGATIVE (NEGATIVE); LEUKOCYTE ESTERASE ,URINE NEGATIVE (NEGATIVE); NITRITE,URINE NEGATIVE (NEGATIVE); PROTEIN,URINE NEGATIVE (NEGATIVE)
[2021-04-27 10:20] LABS: AMORPHOUS SEDIMENT,UR LARGE AMOR PHOSPHATE /LPF; BACTERIA,URINE LARGE /HPF; WBC,URINE 0-2 /HPF
[2021-04-27 10:42] LABS: AMPHETAMINE SCREEN, URINE NEGATIVE (NEGATIVE); BARBITURATE SCREEN URINE NEGATIVE (NEGATIVE); BENZODIAZEPINES SCREEN URINE NEGATIVE (NEGATIVE); CANNABINOID SCREEN, URINE NEGATIVE (NEGATIVE); COCAINE SCREEN URINE NEGATIVE (NEGATIVE); METHADONE STAT NEGATIVE (NEGATIVE); METHAMPHETAMINE SCREEN URINE S NEGATIVE (NEGATIVE); OPIATE SCREEN URINE NEGATIVE (NEGATIVE); OXYCODONE STAT NEGATIVE (NEGATIVE); PROPOXYPHENE STAT NEGATIVE (NEGATIVE); TRICYCLIC ANTIDEPRESSANTS SCRE NEGATIVE (NEGATIVE)
[2021-04-27] MEDS ORDERED: CATHETER FLUSH 10 ML SYR IV SCH (14:00)
[2021-04-27] MEDS ORDERED: MEASLES,MUMPS,RUBELLA 1 EA INJ SQ ONE (16:15)
[2021-04-27] MEDS ORDERED: TETANUS,DIPTH,PERTUSS P/F (BOOSTRIX) 0.5 ML VIAL IM ONE (16:15)
[2021-04-27] MEDS ORDERED: WITCH HAZEL(TUCKS) 40 EA JAR TOP PRN (16:15)
[2021-04-27] MEDS ORDERED: BENZOCAINE/MENTHOL (DERMOPLAST) 56 ML CAN TP PRN (16:15)
--- NOTE | 2021-04-27 16:16 | OB Labor & Delivery Record ---
L&D History Date of Service Date of Service: Apr 27, 2021 History Expected Date of Delivery: Apr 26, 2021 Gestational Age in Weeks: 40 Hx : 3 Hx Para: 3 Complications Events: Routine care Operative Indications (Cesarea: N/A-Vaginal Delivery Intrapartal Events: None L&D Stage1 Stage One Onset of Labor - Date: Apr 27, 2021 Onset of Labor - Time: 06:37 Monitors and Tracing Monitor Mode: Internal Heart Rate: 145 Monitor Accelerations: Uniform Monitor Decelerations: Variable Station: -2 Intermediate Variability: Average (6-10) Short Term Variability: Present Presentation: Vertex Vital Signs VS - Last 72 Hours, by Label 04/27/21 04/27/21 04/27/21 04/27/21 06:45 07:20 07:50 08:05 Temp 36.6 Pulse 90 86 95 91 Resp 20 20 20 20 B/P (MAP) 136/86 (103) 135/86 (102) 134/84 (101) 155/90 (111) Pulse Ox 96 O2 Delivery Room Air Room Air Room Air Room Air 04/27/21 04/27/21 04/27/21 04/27/21 08:20 08:35 08:50 09:05 Pulse 79 85 96 91 Resp 20 20 20 20 B/P (MAP) 149/90 (109) 146/85 (105) 130/78 (95) 144/79 (100) O2 Delivery Room Air Room Air Room Air Room Air 04/27/21 04/27/21 04/27/21 04/27/21 09:10 09:15 09:20 09:25 Temp 36.7 Pulse 85 93 101 137 Resp 20 20 20 20 B/P (MAP) 145/85 (105) 144/82 (102) 131/78 (95) 127/70 (89) Pulse Ox 97 O2 Delivery Room Air Room Air Room Air Room Air 04/27/21 04/27/21 04/27/21 04/27/21 09:29 09:31 09:35 09:40 Pulse 83 103 115 121 Resp 20 20 20 20 B/P (MAP) 72/41 (51) 117/59 (78) 96/46 (63) 112/56 (74) Pulse Ox 96 98 98 O2 Delivery Room Air Room Air Room Air Room Air 04/27/21 04/27/21 04/27/21 04/27/21 09:45 09:48 09:52 09:56 Pulse 118 122 102 97 Resp 20 20 20 20 B/P (MAP) 111/55 (73) 124/64 (84) 123/66 (85) 124/65 (84) Pulse Ox 98 98 98 97 O2 Delivery Room Air Room Air Room Air Room Air 04/27/21 04/27/21 04/27/21 04/27/21 10:00 10:05 10:08 10:12 Pulse 107 98 95 117 Resp 20 20 20 20 B/P (MAP) 124/65 (84) 139/69 (92) 132/71 (91) 125/72 (89) Pulse Ox 97 98 98 98 O2 Delivery Room Air Room Air Room Air Room Air 04/27/21 04/27/21 04/27/21 04/27/21 10:32 10:48 11:05 11:20 Pulse 82 82 88 82 Resp 20 20 20 20 B/P (MAP) 131/78 (95) 127/77 (94) 130/80 (97) 135/76 (95) Pulse Ox 98 98 98 98 O2 Delivery Room Air Room Air Room Air Room Air 04/27/21 04/27/21 04/27/21 04/27/21 11:35 11:50 12:00 12:17 Pulse 100 86 88 86 Resp 20 20 20 20 B/P (MAP) 136/88 (104) 132/76 (94) 139/79 (99) 131/78 (95) Pulse Ox 98 98 98 98 O2 Delivery Room Air Room Air Room Air Room Air 04/27/21 04/27/21 04/27/21 04/27/21 12:32 12:47 13:02 13:17 Temp 36.5 36.5 Pulse 88 76 85 87 Resp 20 20 20 20 B/P (MAP) 130/76 (94) 132/76 (94) 128/73 (91) 125/71 (89) Pulse Ox 98 97 97 96 O2 Delivery Room Air Room Air Room Air Room Air 04/27/21 04/27/21 04/27/21 04/27/21 13:32 13:47 14:02 14:17 Pulse 95 99 85 83 Resp 20 20 20 20 B/P (MAP) 134/80 (98) 130/75 (93) 132/74 (93) 139/77 (97) Pulse Ox 96 96 96 97 O2 Delivery Room Air Room Air Room Air Room Air 04/27/21 04/27/21 04/27/21 04/27/21 14:32 14:47 15:02 15:17 Temp 36.5 Pulse 85 98 97 86 Resp 20 20 20 20 B/P (MAP) 129/76 (93) 133/82 (99) 141/85 (103) 143/84 (103) Pulse Ox 97 97 98 98 O2 Delivery Room Air Room Air Room Air Room Air 04/27/21 15:32 Temp 36.5 Pulse 94 Resp 20 B/P (MAP) 142/80 (100) Pulse Ox 98 O2 Delivery Room Air Signs of Distress by FHT Signs of Distress no Rupture of Membranes Spontaneous Ruture of Membrane: No Amniotic Membrane Rupture Time: 0637 Amniotic Membrane Fluid Desc.: Clear Vaginal Bleeding Description: None Induction/Anesthesia Epidural Cath Placement - Time: 915 L&D Stage2 Stage Two Stage II Date: Apr 27, 2021 Stage II Time: 15:05 Monitors and Tracing Monitor Mode: Internal Heart Rate: 145 Monitor Accelerations: Uniform Monitor Decelerations: Variable Intermediate Variability: Average (6-10) Short Term Variability: Present Position: Left Occiput Anterior Presentation: Vertex Signs of Distress by FHT Signs of Distress no Cord Descript/Complications Cord Vessel Description: 3 Vessels Delivery Type Delivery Method: Spontaneous Vaginal Anterior Shoulder: Left Episiotomy/Perineal Laceration Laceraction(s)/Extensions: No Episiotomy Description: None Condition of Infant Delivery 1 minute Comment: 8 5 minute Comment: 9 Condition of Condition of : Living Exam: No Observed Abnormalities Resuscitation Resuscitation: N/A - Spontaneous Resp L&D Stage3 Stage Three Stage III Date: Apr 27, 2021 Stage III Time: 15:15 Pictocin Pitocin Administration mu/min: 24 Pitocin ml/hr: 24 Placenta Delivery Placenta Delivery: Spontaneous Delivery Summary Summary Estimated blood loss (mL): 200 Condition of Delivery Examined: Cervix Examined Post Hemorrhage: No Intervention Required none DAYANARA VILLAGOMEZ MD Apr 27, 2021 16:16
[2021-04-27] MEDS: IBUPROFEN 600 MG (MOTRIN) TAB PO SCH ×2 (17:39→23:20)
[2021-04-27] MEDS: ACETAMINOPHEN 500 MG TAB (TYLENOL) PO SCH ×2 (17:39→23:21)
[2021-04-27] MEDS: DOCUSATE SODIUM 100 MG (COLACE) CAP PO SCH (21:04)
[2021-04-27] MEDS: CATHETER FLUSH 10 ML SYR IV SCH (23:55)
[2021-04-28 03:54] VITALS: BP 118/64
[2021-04-28 05:46] LABS: BASOPHILS # (AUTO) 0.1 10^3/uL (0.0-0.1); BASOPHILS % (AUTO) 0 % (0-10); EOSINOPHILS # (AUTO) 0.1 10^3/uL (0.0-0.3); EOSINOPHILS % (AUTO) 1 % (0-10); HEMATOCRIT 31 % (35-52); HEMOGLOBIN 10.1 g/dL (11.5-16.0); LYMPHOCYTES # (AUTO) 2.9 10^3/uL (1.0-4.0); LYMPHOCYTES % (AUTO) 21 % (12-44); MEAN CORPUSCULAR HEMOGLOBIN 30 pg (25-34); MEAN CORPUSCULAR HGB CONC 33 g/dL (32-36); MEAN CORPUSCULAR VOLUME 92 fL (80-99); MEAN PLATELET VOLUME 12.5 fL (9.0-12.2); MONOCYTES # (AUTO) 0.6 10^3/uL (0.0-1.0); MONOCYTES % (AUTO) 4 % (0-12); NEUTROPHILS # (AUTO) 10.4 10^3/uL (1.8-7.8); NEUTROPHILS % (AUTO) 73 % (42-75); PLATELET COUNT 162 10^3/uL (130-400); WHITE BLOOD COUNT 14.2 10^3/uL (4.3-11.0)
[2021-04-28] MEDS: CATHETER FLUSH 10 ML SYR IV SCH ×2 (05:54→14:39)
[2021-04-28] MEDS: IBUPROFEN 600 MG (MOTRIN) TAB PO SCH ×2 (05:54→11:59)
[2021-04-28] MEDS: ACETAMINOPHEN 500 MG TAB (TYLENOL) PO SCH ×2 (05:54→11:59)
[2021-04-28 08:00] VITALS: BP 125/72
[2021-04-28] MEDS: DOCUSATE SODIUM 100 MG (COLACE) CAP PO SCH (08:24)
[2021-04-28 11:58] VITALS: BP 126/69
--- NOTE | 2021-04-28 13:37 | Anesthesia-General Post-Op ---
MAC Patient Condition Mental Status/LOC: Same as Preop Cardiovascular: Satisfactory Nausea/Vomiting: Absent Respiratory: Satisfactory Pain: Controlled Complications: Absent Post Op Complications Complications None Follow Up Care/Instructions Patient Instructions None needed. Anesthesiology Discharge Order Discharge Order Patient is doing well, no complaints, stable vital signs, no apparent adverse anesthesia problems. No complications reported per nursing. SANDHYA MANN CRNA Apr 28, 2021 13:37
--- NOTE | 2021-04-28 13:38 | Anesthesia-Regional Post-Op ---
Regional Patient Condition Mental Status: Alert, Oriented x3 Circulation: Same as Pre-Op Headache: Absent Sensation: Full Recovery Motor Block: Absent Post Op Complications Complications None Follow Up Care/Instructions Patient Instructions None needed. Anesthesia/Patient Condition Patient is doing well, no complaints, stable vital signs, no apparent adverse anesthesia problems. No complications reported per nursing. SANDHYA MANN CRNA Apr 28, 2021 13:38
[2021-04-28 16:03] VITALS: BP 147/83
--- NOTE | 2021-04-28 16:07 | Discharge Inst-Women's Service ---
Discharge Inst-Women's Serv Depart Medication/Instructions New, Converted or Re-Newed RX: Other Instructions May use naproxen as instructed for cramps or pain Problems Reviewed?: Yes Consults/Follow Up Additional Follow Up: Yes (Dr Villagomez at [facility] in 6 weeks.) Activity Activity: Activity as Tolerated Driving Instructions: No Driving for 1 Week Nothing Inside Vagina: No [place] (for 6 weeks.) Diet Discharge Diet: Regular Diet Return to The Hospital For: as below Symptoms to Report to : Bleeding Excessive, Pain Increased, Fever Over 101 Degrees F, Vaginal Discharge Foul For Any Problems or Questions: Contact Your Physician DAYANARA VILLAGOMEZ MD Apr 28, 2021 16:07
--- NOTE | 2021-04-28 16:09 | Discharge Summary ---
Diagnosis/Chief Complaint Date of Admission Apr 27, 2021 at 06:00 Date of Discharge Apr 28, 2021 Admission Diagnosis Admission Diagnosis 1. IUP at 40 weeks gestation Discharge Diagnosis 1. IUP at 40 weeks gestation Chief Complaint/HPI Chief Complaint/HPI 31 yo G3 now T3L3 who presented for induction of labor in the am of 04-27-2021 due to post dates. Discharge Summary-OBS Procedures 1. Epidural per anesthesia 2. Discharge Physical Examination Allergies: Coded Allergies: No Known Drug Allergies (Unverified , 04/04/11) Vitals & I&Os Intake and Output 04/27/21 23:59 Intake Total 1800 ml Balance 1800 ml Vital Sign - Last 12Hours Date Time Temp Pulse Resp B/P (MAP) Pulse Ox O2 Delivery O2 Flow Rate FiO2 04/28/21 16:03 36.6 88 16 147/83 (104) 97 Room Air General Appearance: No Acute Distress Respiratory: Normal Air Movement Cardiovascular: Regular Rate Abdominal: Soft (with uterus firm) Hospital Course Was the Problem List Reviewed?: Yes Labs Laboratory Tests 04/28/21 05:22: White Blood Count 14.2H, Red Blood Count 3.37L, Hemoglobin 10.1L, Hematocrit 31L , Mean Corpuscular Volume 92, Mean Corpuscular Hemoglobin 30, Mean Corpuscular Hemoglobin Concent 33, Red Cell Distribution Width 14.8H, Platelet Count 162, Mean Platelet Volume 12.5H, Immature Granulocyte % (Auto) 1, Neutrophils (%) (Auto) 73, Lymphocytes (%) (Auto) 21, Monocytes (%) (Auto) 4, Eosinophils (%) (Auto) 1, Basophils (%) (Auto) 0, Neutrophils # (Auto) 10.4H, Lymphocytes # (Auto) 2.9, Monocytes # (Auto) 0.6, Eosinophils # (Auto) 0.1, Basophils # (Auto) 0.1, Immature Granulocyte # (Auto) 0.1 Microbiology 04/27/21 Urine Culture - Final, Complete >=3 Gram Positive Isolates Discharge Instructions to patient/family Please see electronic discharge instructions given to patient. Discharge Medications Reviewed and agree with Discharge Medication list on patient's Discharge Instruction sheet DAYANARA VILLAGOMEZ MD Apr 28, 2021 16:09
== END 2021-04-28 17:40 | disposition home or self-care (01) | DRG 807 ==
LOC: LDRP 06:00
PROVIDERS: ADMIT Family Medicine; ATTEND Family Medicine
PROC: 10E0XZZ Delivery of Products of Conception, External Approach (ICD-10-PCS; principal; 2021-04-27)
PROC: 10907ZC Drainage of Amniotic Fluid, Therapeutic from Products of Conception, Via Natural or Artificial Opening (ICD-10-PCS; 2021-04-27)
DX: O48.0 Post-term pregnancy (principal); Z37.0 Single live birth; Z3A.40 40 weeks gestation of pregnancy
CPT/HCPCS: 36415; 80306; 81000; 85025; 86850; 86900; 86901; 87088

== ENCOUNTER 2021-05-02 15:07 | Emergency (ER) | payer MEDICAID ==
[~2021-05-02] VITALS: Ht 167 cm; Wt 63.5 kg
[2021-05-02 15:50] LABS: BASOPHILS % (AUTO) 0 % (0-10); EOSINOPHILS # (AUTO) 0.1 10^3/uL (0.0-0.3); EOSINOPHILS % (AUTO) 1 % (0-10); HEMATOCRIT 36 % (35-52); HEMOGLOBIN 11.9 g/dL (11.5-16.0); LYMPHOCYTES # (AUTO) 2.3 X 10^3 (1.0-4.0); LYMPHOCYTES % (AUTO) 19 % (12-44); MEAN CORPUSCULAR HEMOGLOBIN 30 pg (25-34); MEAN CORPUSCULAR HGB CONC 33 g/dL (32-36); MEAN CORPUSCULAR VOLUME 91 fL (80-99); MEAN PLATELET VOLUME 10.6 fL (9.0-12.2); MONOCYTES # (AUTO) 0.7 X 10^3 (0.0-1.0); MONOCYTES % (AUTO) 5 % (0-12); NEUTROPHILS # (AUTO) 8.8 X 10^3 (1.8-7.8); NEUTROPHILS % (AUTO) 74 % (42-75); PLATELET COUNT 216 10^3/uL (130-400)
--- NOTE | 2021-05-02 15:57 | ED General ---
General Chief Complaint: (<6 weeks) Stated Complaint: BACK PAIN, SWOLLEN ANKLES Nursing Triage Note: PT PRESENTS TO ED VIA POV FROM HOME WITH COMPLAINTS OF BILATERAL ANKLE/LOWER LEG SWELLING AND HYPERTENSION STARTING TODAY. PT ALSP REPORTS BACK PAIN FOR A COUPLE DAYS. PT STATES SHE HAD A VAGINAL DELIVERY ON 04/27. (MARIA T ASKEW) History of Present Illness Date Seen by Provider: May 02, 2021 Time Seen by Provider: 15:55 Initial Comments Patient is a 31-year-old female who is 5 days for vaginal who presents ED with lower leg swelling, dizziness, low back pain. She reports low back pain over the past 2 days described as sharp without radiation. Denies of any bowel or urine continence, lower extremity weakness or sensory changes. Denies any urinary symptoms. Had intermittent vaginal spotting since giving b irth however that has improved. Denies of any vaginal discharge. Reports nausea without vomiting or diarrhea. Patient was seen today and was recommended come the ED for further evaluation for concern for elevated blood pressure reading. No known history of hypertension, diabetes. Denies any complications with the vaginal . G3, P3. Patient denies fever, chills, neck pain, chest pain or shortness of breath. (MARIA T ASKEW) Allergies and Home Medications Allergies Coded Allergies: No Known Drug Allergies (Unverified , 04/04/11) Patient Home Medication List Home Medication List Reviewed: Yes (MARIA T ASKEW) Naproxen (Naprosyn) 500 Mg Tablet, 500 MG PO BID Prescribed by: JOHNSON BERGERON on 12/06/19 0653 Sertraline HCl (Zoloft) 100 Mg Tablet, 100 MG PO DAILY, (Reported) Entered as Reported by: BONNY MTZ on 02/18/17 0953 Discontinued Medications Amoxicillin/Potassium Clav (Augmentin 875-125 Tablet) 1 Each Tablet, 1 EACH PO BID Prescribed by: VICENTE COREA on 08/22/17 1045 Cephalexin (Keflex) 500 Mg Capsule, 500 MG PO TID Prescribed by: MARLYN COMBS on 01/30/20 0237 Review of Systems Review of Systems Constitutional: No chills, No diaphoresis; dizziness, malaise EENTM: No double vision Respiratory: No cough, No dyspnea on exertion, No hemoptysis, No orthopnea Gastrointestinal: No see HPI, No abdominal pain, No constipation, No heartburn Musculoskeletal: back pain; No gout, No joint pain Skin: No see HPI, No change in color, No change in hair/nails (MARIA T ASKEW) All Other Systems Reviewed Negative Unless Noted: Yes (MARIA T ASKEW) Past Oyhdmff-Yhbotu-Sozewi Hx Patient Social History Tobacco Use?: Yes Tobacco type used: Cigarettes Smoking Status: Current Everyday Smoker Substance use?: No Alcohol Use?: No Pt feels they are or have been: No (MARIA T ASKEW) Immunizations Up To Date Tetanus Booster (TDap): Unknown PED Vaccines UTD: No (MARIA T ASKEW) Seasonal Allergies Seasonal Allergies: No (MARIA T ASKEW) Past Medical History Surgeries: No Respiratory: Yes Pneumonia Cardiac: No Neurological: No Reproductive Disorders: No Female Reproductive Disorders: Denies Genitourinary: No Gastrointestinal: No Musculoskeletal: No Endocrine: No HEENT: No Cancer: No Psychosocial: Yes (POLYSUBSTANCE ABUSE) Anxiety, Depression Integumentary: No Blood Disorders: No Adverse Reaction/Blood Tranf: No (MARIA T ASKEW) Family Medical History Cardiovascular disease 19 MOTHER, Onset:39 (HEART ATTACK ) [place], Onset:50's - 60 (HEART ATTACK) Dementia MAT GRANDMA, Onset:50's - 60 Diabetes mellitus MAT GRANDPA MAT GRANDMA Hypertension 19 FATHER, Onset:Unknown 19 MOTHER, Onset:Unknown Thyroid disease MAT [place], Onset:Unknown No Family History of: AIDS Abdominal aortic aneurysm [place]'s disease Alcoholism Alzheimer's disease Aphasia Arthritis Asthma Cancer of mouth Cataracts Colon cancer Completed stroke Congenital disease Congenital heart disease Coronary thrombosis Cystic fibrosis Deafness or hearing loss Drug abuse Dysphasia Fibrocystic disease of breast Gastroenteritis Glaucoma Headache disorder Hypercholesterolemia Kidney disease Myocardial infarction Neoplasm Osteoporosis Parkinson's disease Prostate cancer Psychosocial problem Respiratory disorder Seizure disorder Severe allergy Tuberculosis Visual disorder No Pertinent Family Hx (MARIA T ASKEW) Physical Exam Vital Signs Vital Signs - First Documented 05/02/21 15:23 Temp 36.1 Pulse 83 Resp 18 B/P (MAP) 176/112 (133) Pulse Ox 97 (MARLYN HUMPHRIES MD) Vital Signs Capillary Refill : Less Than 3 Seconds (MARIA T ASKEW) Height, Weight, BMI Height: 5'6.00" Weight: 120lbs. oz. 54.780410fi; 22.00 BMI Method:Stated General Appearance: No Apparent Distress, WD/WN Eyes: Bilateral Eye Normal Inspection, Bilateral Eye PERRL, Bilateral Eye EOMI HEENT: PERRL/EOMI, TMs Normal, Normal ENT Inspection, Pharynx Normal Neck: Full Range of Motion, Normal Inspection, Non Tender, Supple Respiratory: Chest Non Tender, Lungs Clear, Normal Breath Sounds, No Accessory Muscle Use, No Respiratory Distress Cardiovascular: Regular Rate, Rhythm, No Edema, No Gallop, No JVD, No Murmur Gastrointestinal: Normal Bowel Sounds, No Organomegaly, No Pulsatile Mass, Non Tender, Soft Back: Normal Inspection, No CVA Tenderness, No Vertebral Tenderness, Other (Lumbar) Neurologic/Psychiatric: Alert, Oriented x3, No Motor/Sensory Deficits, Normal Mood/Affect Skin: Normal Color, Warm/Dry (MARIA T ASKEW) Progress/Results/Core Measures Suspected Sepsis SIRS Temperature: Pulse: 83 Respiratory Rate: 18 Laboratory Tests 05/02/21 15:45: White Blood Count 12.0H Blood Pressure 176 /112 Mean: 133 Laboratory Tests 05/02/21 15:45: Creatinine 0.61, Platelet Count 216, Total Bilirubin 0.4 (MARIA T ASKEW) Results/Orders Lab Results Laboratory Tests Test 05/02/21 15:45 05/02/21 16:29 Range/Units White Blood Count 12.0 H 4.3-11.0 10^3/uL Red Blood Count 3.96 3.80-5.11 10^6/uL Hemoglobin 11.9 11.5-16.0 g/dL Hematocrit 36 35-52 % Mean Corpuscular Volume 91 80-99 fL Mean Corpuscular Hemoglobin 30 25-34 pg Mean Corpuscular Hemoglobin Concent 33 32-36 g/dL Red Cell Distribution Width 15.8 H 10.0-14.5 % Platelet Count 216 130-400 10^3/uL Mean Platelet Volume 10.6 9.0-12.2 fL Immature Granulocyte % (Auto) 0 % Neutrophils (%) (Auto) 74 42-75 % Lymphocytes (%) (Auto) 19 12-44 % Monocytes (%) (Auto) 5 0-12 % Eosinophils (%) (Auto) 1 0-10 % Basophils (%) (Auto) 0 0-10 % Neutrophils # (Auto) 8.8 H 1.8-7.8 X 10^3 Lymphocytes # (Auto) 2.3 1.0-4.0 X 10^3 Monocytes # (Auto) 0.7 0.0-1.0 X 10^3 Eosinophils # (Auto) 0.1 0.0-0.3 10^3/uL Basophils # (Auto) 0.0 0.0-0.1 10^3/uL Immature Granulocyte # (Auto) 0.0 0.0-0.1 10^3/uL Sodium Level 139 135-145 MMOL/L Potassium Level 3.0 L 3.6-5.0 MMOL/L Chloride Level 107 98-107 MMOL/L Carbon Dioxide Level 21 21-32 MMOL/L Anion Gap 11 5-14 MMOL/L Blood Urea Nitrogen 10 7-18 MG/DL Creatinine 0.61 0.60-1.30 MG/DL Estimat Glomerular Filtration Rate 116 BUN/Creatinine Ratio 16 Glucose Level 79 70-105 MG/DL Calcium Level 8.3 L 8.5-10.1 MG/DL Corrected Calcium 8.9 8.5-10.1 MG/DL Magnesium Level 2.0 1.6-2.4 MG/DL Total Bilirubin 0.4 0.1-1.0 MG/DL Aspartate Amino Transf (AST/SGOT) 52 H 5-34 U/L Alanine Aminotransferase (ALT/SGPT) 69 H 0-55 U/L Alkaline Phosphatase 130 40-136 U/L Total Protein 5.9 L 6.4-8.2 GM/DL Albumin 3.2 3.2-4.5 GM/DL Lipase 9 8-78 U/L Urine Color YELLOW Urine Clarity CLEAR Urine pH 7.0 5-9 Urine Specific [place] 1.015 L 1.016-1.022 Urine Protein 2+ H NEGATIVE Urine Glucose (UA) NEGATIVE NEGATIVE Urine Ketones NEGATIVE NEGATIVE Urine Nitrite NEGATIVE NEGATIVE Urine Bilirubin NEGATIVE NEGATIVE Urine Urobilinogen 0.2 < = 1.0 MG/DL Urine Leukocyte Esterase 1+ H NEGATIVE Urine RBC (Auto) 2+ H NEGATIVE Urine RBC NONE /HPF Urine WBC 0-2 /HPF Urine Squamous Epithelial Cells 0-2 /HPF Urine Renal Epithelial Cells NONE /HPF Urine Crystals NONE /LPF Urine Bacteria NEGATIVE /HPF Urine Casts NONE /LPF Urine Mucus NEGATIVE /LPF Urine Culture Indicated NO (MARLYN HUMPHRIES MD) Vital Signs/I&O 05/02/21 15:23 Temp 36.1 Pulse 83 Resp 18 B/P (MAP) 176/112 (133) Pulse Ox 97 (MARLYN HUMPHRIES MD) Vital Signs/I&O Capillary Refill : Less Than 3 Seconds (MARIA T ASKEW) Blood Pressure Mean: 133 Departure Communication (Admissions) Time/Spoke to Admitting Phy: 18:16 Patient with dizziness, hypertension. No known history of hypertension. 5 days . G3, P3. Patient blood pressure as high as 176/103. Patient was given 20 mg of labetalol without much improvement. Patient with proteinuria slight elevated liver enzymes and white blood count. She has no lower abdominal tenderness. Urinalysis without evidence of infection. Patient with lower back pain secondary to epidural versus pain. Lumbar CT scan with chronic changes. Afebrile. Discussed patient with Dr. [facility], [employer] who delivered patient baby. Discussed oral versus IV BP medication. He recommends Cardizem CD 180 mg daily. Recheck CBC, CMP in the morning. Admitted to Dr. Patel. Patient agrees with admission at this time. concerning for preeclampsia. No seizure-like activity. (MARIA T ASKEW) Impression Primary Impression: Preeclampsia in period Disposition: ADMITTED INPATIENT Condition: Unchanged Admissions Decision to Admit Reason: Admit from ER (General) Decision to Admit/Date: May 02, 2021 Time/Decision to Admit Time: 18:16 (MARIA T ASKEW) Departure-Patient Inst. Referrals: NO,LOCAL PHYSICIAN (PCP/Family) Primary Care Physician ATTENDING PHYSICIAN NOTE: I was physically present as attending physician in the emergency department during the care of this patient, but I was not directly involved in the decision making or delivery of care for this patient. (MARLYN HUMPHRIES MD) MARIA T ASKEW May 02, 2021 15:57 MARLYN HUMPHRIES MD May 04, 2021 05:22
[2021-05-02] MEDS ORDERED: LABETALOL HCL 20 MG/4 ML VIAL IV ONE ×2 (16:00→17:00)
[2021-05-02 16:09] LABS: ALBUMIN 3.2 GM/DL (3.2-4.5)
[2021-05-02 16:10] LABS: CALCIUM 8.3 MG/DL (8.5-10.1)
[2021-05-02 16:11] LABS: TOTAL PROTEIN 5.9 GM/DL (6.4-8.2)
[2021-05-02 16:13] LABS: BILIRUBIN,TOTAL 0.4 MG/DL (0.1-1.0)
[2021-05-02 16:15] LABS: CREATININE SERUM 0.61 MG/DL (0.60-1.30)
--- NOTE | 2021-05-02 16:24 | Diagnostic Imaging Report ---
PROCEDURE: CT lumbar spine without contrast. TECHNIQUE: Multiple contiguous axial images were obtained through the lumbar spine without the use of intravenous contrast. Sagittal and coronal reformations were then performed. Auto Exposure Controls were utilized during the CT exam to meet ALARA standards for radiation dose reduction. INDICATION: Ankle swelling and hypertension, patient is vaginal delivery on 04/27/2021. She fell and now has back pain. FINDINGS: The lumbar vertebral statures are normal. Their alignment is anatomic. The pedicles and pars are intact. Disc space is preserved. No fracture or traumatic malalignment. No SI joint diastasis. L4-L5 disc shows some generalized bulging and in conjunction with mild thickening of the ligamenta flava results in at least moderate magnitude of spinal canal stenosis. There is mild biforaminal narrowing. This is of uncertain acuity. No hyperdense epidural collection to suggest a hematoma in this patient. The uterus is enlarged as an expected finding. There is no intra- or retro-peritoneal hemorrhage. The kidneys are unobstructed. The aorta is nonaneurysmal. The visualized central abdominopelvic solid and hollow viscera appeared otherwise normal. No acute appearing pathological finding. IMPRESSION: 1. Intact lumbar spine, anatomically aligned. There is disc bulge and ligamentum thickening at the L4-L5 level where there is moderate canal and at least mild biforaminal stenosis. No acute bony abnormality. 2. Expected enlargement of the uterus with no findings of hemorrhage. Dictated by: Dictated on workstation # [id number]
[2021-05-02 16:34] LABS: BILIRUBIN,URINE NEGATIVE (NEGATIVE); CLARITY,URINE CLEAR; COLOR,URINE YELLOW; GLUCOSE, URINE (UA) NEGATIVE (NEGATIVE); KETONES,URINE NEGATIVE (NEGATIVE); LEUKOCYTE ESTERASE ,URINE 1+ (NEGATIVE); NITRITE,URINE NEGATIVE (NEGATIVE); PROTEIN,URINE 2+ (NEGATIVE)
[2021-05-02 16:43] LABS: BACTERIA,URINE NEGATIVE /HPF; SQUAMOUS EPITHELIAL CELL,UR 0-2 /HPF; WBC,URINE 0-2 /HPF
[2021-05-02] MEDS ORDERED: IBUPROFEN 600 MG (MOTRIN) TAB PO ONE (19:00)
[2021-05-02 19:50] VITALS: BP 167/107
== END 2021-05-02 19:50 | disposition left against medical advice (07) ==
LOC: EDUNIT# 15:07 → ER 15:09 → UNDOADMIN 17:37 → LDRP 17:37 → EDLOC 17:37
DX: O14.95 Unspecified pre-eclampsia, complicating the puerperium (principal); O16.5 Unspecified maternal hypertension, complicating the puerperium; O99.893 Other specified diseases and conditions complicating puerperium; R42 Dizziness and giddiness; M54.50 Low back pain, unspecified; O99.345 Other mental disorders complicating the puerperium; F41.9 Anxiety disorder, unspecified; F32.9 Major depressive disorder, single episode, unspecified; O99.335 Smoking (tobacco) complicating the puerperium; F17.210 Nicotine dependence, cigarettes, uncomplicated; Z79.899 Other long term (current) drug therapy
CPT/HCPCS: 36415; 72131; 80053; 81000; 83690; 83735; 85025